=== PATIENT | male | born 1960 | race African-American/Black ===

== ENCOUNTER 2020-02-19 10:03 | Emergency (ER) | payer OTHER, SELFPAY ==
[2020-02-19] VITALS (14 sets, daily range): BP systolic 140–168; BP diastolic 99–106; PULSE 61–74; RESP 18–22; TEMP 36.6–36.8; O2SAT 96–99
--- NOTE | ~2020-02-19 | XR_ITS ---
EXAMINATION: XR chest 1V portable DATE: 02/19/2020 11:30 INDICATION: Cough. TECHNIQUE: A single frontal view of the chest was obtained. COMPARISON: None. FINDINGS: There is mild elevation of left hemidiaphragm. Calcified pulmonary nodules and calcified hi lar and mediastinal lymph nodes are consistent with old granulomatous disease. There is no pneumonia, pleural effusion, or pneumothorax. The heart size is normal. There is a stent graft in thoracic aort a. Median sternotomy wires are noted. IMPRESSION: 1. No acute cardiopulmonary disease. Reviewed, dictated and finalized at location A. EY STRIPPER
--- NOTE | 2020-02-19 10:15 | PC.NURSE ---
patient here with increased dry cough. see initial notes. alert. oriented. no dyspnea noted. no cough at this time. states his was (+) for Covid. denies fever. assessments documented. resting on stretcher. on BP and O2 monitors. call light in reach.
--- NOTE | 2020-02-19 10:47 | ED.URI ---
HPI - URI/Sore Throat General Chief Complaint: Upper Respiratory Infection Stated Complaint: cough, covid exposure Time Seen by Provider: 02/19/20 10:13 Source: patient Mode of arrival: ambulatory Limitations: no limitations History of Present Illness HPI Narrative: 59 year old male with history of asthma and hypertension who presents for evaluation possible covid. He states he has a cough for 2 weeks so he wants to get checked for covid. His wive was positive 2 weeks ago and she has had a negative test since. He reports he has continued to have a cough and chest congestion. He denies fever, vomiting, diarrhea, chest pain or shortness of breath. Related Data Home Medications Medication Instructions Recorded Confirmed carvedilol 25 mg PO BID 02/19/20 latanoprost drp 02/19/20 montelukast mg 02/19/20 nifedipine PO 02/19/20 Allergies Allergy/AdvReac Type Severity Reaction Status Date / Time No Known Allergies Allergy Verified 02/19/20 10:29 Review of Systems Review of Systems: All systems reviewed & are unremarkable except as noted in HPI and below Constitutional: Constitutional: Denies chills, Denies fatigue and Denies fever(s) ENT: Denies sore throat Cardiovascular: Cardiovascular: Denies chest pain Respiratory: Respiratory: Reports cough and Denies dyspnea Gastrointestinal: Gastrointestinal: Denies abdominal pain and Denies nausea PMFSH Past Medical History Medical History (Updated 02/19/20 @ 13:57 by Lisa Dwyer MD) Hypertension Surgical History Surgical History (Updated 02/19/20 @ 10:48 by Lisa Dwyer MD) H/O aortic valve replacement Family History Family History (Updated 01/18/20 @ 18:08 by Cesilia Roland RN) Mother Hypertension Sibling Hypertension Social History Social History Smoking status: Never smoker Exam Const: General: no acute distress and alert Orientation/consciousness: patient oriented x3 HENMT: Head: normocephalic and atraumatic Face and sinus: face symmetric Mouth: Yes Normal oral and palatal mucosa present, Yes lip normal, Yes oropharynx normal and Yes moist mucous membranes Eyes: EOM: EOMs intact bilaterally Chest: Chest palpation & inspection: normal inspection of the chest Resp: Effort & Inspection: normal respiratory effort and no retractions Auscultation: clear to auscultation bilaterally Cardio: Rate: regular rate Rhythm: regular rhythm Heart sounds: no murmurs GI: GI Palp: Yes Soft to palpation, No Tenderness to palpation present (GI) and No Guarding due to palpation present (GI) Auscultation: normal bowel sounds Skin: General skin exam: normal color Rashes: no rashes Neuro: General: patient oriented x3 and moves all extremities Psych: Mental Status: mental status grossly normal Affect: normal affect Course Reevaluation(s) Reevaluation #1: I discussed with patient that xray did not show pneumonia but he does have some kidney disease. He is not aware of any history. He was given IVF and he will follow up with PCP Date: 02/19/20 Time: 13:53 Vital Signs Vital signs: Vital Signs Pulse Oximetry 98 02/19/20 10:18 Temperature 97.9 F 02/19/20 13:30 Pulse Rate 64 02/19/20 13:30 Respiratory Rate 20 02/19/20 13:30 Blood Pressure 168/104 H 02/19/20 13:30 Pulse Oximetry 98 02/19/20 14:04 MDM - URI/Sore Throat Lab Data Attestation: I reviewed the patient's lab results. Result diagrams: 02/19/20 10:43 02/19/20 10:43 Labs: Lab Results 02/19/20 02/19/20 02/19/20 Range/Units 10:43 10:43 10:43 WBC 6.3 (4.5-10.0) K/mm3 RBC 4.43 L (4.6-6.20) M/mm3 Hgb 13.1 L (14.0-18.0) g/dL Hct 39.5 L (42.0-52.0) % MCV 89.2 (80-100) fl MCH 29.6 (26-34) pg MCHC 33.2 (32-36) g/dl RDW 14.6 H (11.5-14.5) % Plt Count 173 (150-375) k/mm3 MPV 11.7 H (7.4-10.4) fl Immature Gran % (Auto) 0.2 (0-0.5) % Neut % (
[2020-02-19 10:51] LABS: Basophils Absolute Auto 0.1 K/mm3 (0.0-0.1); Basophils Percent Auto 0.8 % (0.2-1.2); Eosinophils Absolute Auto 0.7 K/mm3 (0-0.3); Eosinophils Percent Auto 11.4 % (0-4.4); Hematocrit 39.5 % (42.0-52.0); Hemoglobin 13.1 g/dL (14.0-18.0); Immature Granulocyte Absolute 0.01 K/mm3 (0.00-0.031); Immature Granulocyte Percent A 0.2 % (0-0.5); Lymphocytes Percent Auto 25.3 % (18.3-44.2); Mean Corpuscular HGB Conc 33.2 g/dl (32-36); Mean Corpuscular Hemoglobin 29.6 pg (26-34); Mean Corpuscular Volume 89.2 fl (80-100); Mean Platelet Volume 11.7 fl (7.4-10.4); Monocytes Absolute Auto 0.8 K/mm3 (0.1-0.6); Monocytes Percent Auto 12.7 % (2.6-8.5); Neutrophils Absolute Auto 3.1 K/mm3 (1.3-6.7); Neutrophils Percent Auto 49.6 % (45.5-73.1); Platelet Count Result 173 k/mm3 (150-375); Red Blood Count 4.43 M/mm3 (4.6-6.20); Red Cell Distribution Width 14.6 % (11.5-14.5); White Blood Count 6.3 K/mm3 (4.5-10.0)
[2020-02-19 11:08] LABS: Alanine Aminotransferase 86 U/L (4-50); Albumin Level 4.1 g/dL (3.5-5.1); Alkaline Phosphatase 66 U/L (38-126); Anion Gap 6 mmol/L (8-16); Aspartate Amino Transferase 43 U/L (17-59); Bilirubin,Total 0.5 mg/dL (0.2-1.3); Blood Urea Nitrogen 26 mg/dL (9-20); CRP 0.9 mg/dL (<1.0); Calcium 8.6 mg/dL (8.4-10.2); Carbon Dioxide 31 mmol/L (22-30); Chloride 101 mmol/L (98-107); Estimated CRCL calculation 63 ml/min; Estimated Glomerular Filt Rate 48; Glucose 91 mg/dL (75-110); Sodium 138 mmol/L (137-145)
--- NOTE | 2020-02-19 11:10 | PC.NURSE ---
report given to Derrell ROMO
[2020-02-19] MEDS: LACTATED RINGERS 1,000 ML 999 ML IV CONT (12:54)
--- NOTE | 2020-02-19 13:22 | PC.NURSE ---
patient with call light on. this RN gave updated information to patient's on patient's cell phone. aware that patient may be discharged soon but physician is in a procedure.
[2020-02-20 16:54] LABS: SARS-CoV-2 RNA PCR Negative
== END 2020-02-19 14:19 | disposition home or self-care (01) ==
PROVIDERS: Emergency Provider General Practice
DX: J45.909 Unspecified asthma, uncomplicated (principal); N28.9 Disorder of kidney and ureter, unspecified; Z20.828 Contact with and (suspected) exposure to other viral communicable diseases; I10 Essential (primary) hypertension; Z95.2 Presence of prosthetic heart valve
CPT/HCPCS: 36415; 71045; 80053; 85025; 86140; 87635; 96360; 99283; C9803; J7120; U0003

== ENCOUNTER 2020-04-11 18:00 | Outpatient (RCR) | payer OTHER, SELFPAY ==
[2020-01-18 18:29] VITALS: PULSE 66
--- NOTE | 2020-01-23 17:13 | PCCPR ---
ABSENT Chace's called states he is pretty tired today and will not be in.
--- NOTE | 2020-02-01 11:02 | PCCPR ---
Addendum entered by Arabella Cormier RN 02/01/20 11:03: Sushila returned our call states he has not been feeling well this week and hopes to return next week. Original Note: Absent without call or show Message left for Chace and or his to give us an update of how he is feeling and a plan for return to rehab.
--- NOTE | 2020-02-06 18:12 | PCCPR ---
pt called, had recent exposure and will be quarantining for 14 days- potentially thru 02/15
--- NOTE | 2020-02-09 16:17 | PCCPR ---
pt put on hold until 6p class opens again. spoke to pt and updated on status of change in hours for CR.
--- NOTE | 2020-03-26 09:41 | PCCPR ---
Addendum entered by Arabella Cormier RN 03/29/20 18:41: Chace' s answered and states Chace would like to return he has been down with his back back however feeling better now. Sushila states she has not returned any calls since between her work and helping care for him she has not had time to do so. She plans to have him here 04/02/20. Verified the class schedule for the week. Addendum entered by Arabella Cormier RN 03/29/20 18:36: Message left that we will be discharging Chace from program since we have not heard back with plan to return. Original Note: Msg left for Chace and his Sushila MADINA requesting they give us a call back to let us know Chace's plan for return. Also to verify we are open at the 6 pm time.
--- NOTE | 2020-04-16 13:22 | PCCPR ---
Absent due to cold snowy weather Spoke with Chace's and choosing not to come out in cold.
== END 2020-04-11 23:59 | disposition home or self-care (01) ==
LOC: ANHCPREHAB 18:00
DX: Z95.2 Presence of prosthetic heart valve (principal)
CPT/HCPCS: 93798

== ENCOUNTER 2020-07-16 18:00 | Outpatient (RCR) | payer OTHER, SELFPAY ==
[2020-04-18 00:03] VITALS: PULSE 66
--- NOTE | 2020-06-25 18:25 | PCCPR ---
Absent Chace absent without call.
== END 2020-07-16 19:30 | disposition home or self-care (01) ==
LOC: ANHCPREHAB 18:00
DX: Z95.2 Presence of prosthetic heart valve (principal)
CPT/HCPCS: 93798

== ENCOUNTER 2020-12-24 18:42 | Observation (INO) | payer OTHER, SELFPAY ==
[2020-12-24] VITALS (20 sets, daily range): BP systolic 113–151; BP diastolic 70–87; PULSE 67–82; RESP 16–25; TEMP 36.6; O2SAT 92–100
--- NOTE | ~2020-12-24 | US_ITS ---
EXAMINATION:US venous doppler LE BI INDICATION:Elevated d-dimer. TECHNIQUE: Multiple grayscale, color flow and Doppler images of the right and left lower extremity de ep venous systems were obtained and reviewed. COMPARISON:No prior studies for comparison. FINDINGS: The common femoral, superficial femoral and popliteal veins demonstrate normal respiratory variation, augmentation and compressibility. Color flow is also seen within the posterior tibial, pe roneal, greater saphenous and profunda veins. IMPRESSION: 1: No lower extremity deep venous thrombosis. Reviewed, dictated and finalized at location A.
--- NOTE | ~2020-12-24 | US_ITS ---
EXAMINATION: US renal BI EXAM DATE: 12/25/2020 10:14 INDICATION: Acute on chronic renal failure . TECHNIQUE: Multiple grayscale and Doppler images of the kidneys were obtained (by a technologist who performed the scan) and subsequently reviewed. There is no prior study for comparison. FINDINGS: Right kidney: There is normal contour and echogenicity. It measures 10.2 x 5.0 x 4.0 centimeters. T here are no focal renal lesions identified. There is no hydronephrosis. Left kidney: There is normal contour and echogenicity. It measures 11.2 x 5.6 x 7.0 centimeters. Th ere are no focal renal lesions identified. There is no hydronephrosis. Bladder unremarkable. IMPRESSION: 1. Sonographically unremarkable kidneys. Reviewed, dictated and finalized at location B.
--- NOTE | ~2020-12-24 | CT_ITS ---
EXAMINATION: CTA chest PE protocol EXAM DATE: 12/25/2020 16:08 INDICATION: Elevated d-dimer, cough. TECHNIQUE: Spiral CTA of the chest (pulmonary arteries) was performed with 100 cc Omnipaque 350 intr avenous contrast injection. Images were acquired during the pulmonary arterial phase. Coronal maxi mum intensity projection 3D-reconstructions were created by the technologist on dedicated workstation . Axial, coronal and sagittal reformatted images were reviewed. The dose-length product (DLP) for t his examination was 983.02 mGy-cm. The exposure was tailored according to patient size (auto mA exp osure control), and iterative reconstruction (ASIR) was used as additional dose reduction technique. There is no prior study for comparison. FINDINGS: There is aortic stent in its arch and proximal descending thoracic aorta. There is a dissec tion flap starting at the aortic hiatus into the abdomen. The celiac artery, superior mesenteric mele ry and renal arteries arise from the true lumen. The abdominal aorta below this was not imaged. There are no central pulmonary emboli. There is respiratory motion limiting confidence in evaluating the segmental pulmonary arteries. There is bibasilar subsegmental atelectasis. There are no pleural o r pericardial effusions. Tracheobronchial tree is patent. Mildly enlarged paratracheal, precarina l, right hilar lymph nodes, differential diagnosis including reactive etiology, lymphoma, metastatic disease. There is no pneumothorax. Heart normal in size. There are sternotomy wires, and cardiac /coronary surgical changes. Correlate with prior history. There is thickened appearance to the mid esophagus, differential diagnosis including esophagitis and cancer. There is small sliding gastroesophageal hiatal hernia. There is thoracic spondylosis without osteoblastic or osteolytic lesions identified. IMPRESSION: 1. 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 2. No central pulmonary emboli. 3. Basilar subsegmental atelectasis. 4. Mid esophageal wall thickening, edema from esophagitis or cancer. 5. Mild mediastinal, right hilar lymphadenopathy. This could be reactive or cancer. Reviewed, dictated and finalized at location B. IMPRESSION: 1. 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 2. No central pulmonary emboli. 3. Basilar subsegmental atelectasis. 4. Mid esophageal wall thickening, edema from esophagitis or cancer. 5. Mild mediastinal, right hilar lymphadenopathy. This could be reactive or c ancer.
--- NOTE | ~2020-12-24 | XR_ITS ---
XR chest 2V 12/24/2020 19:24 Indication: Chest tightness and shortness of breath. Hypertension. Asthma. Procedure: PA and lateral views of the chest Comparison: 02/19/2020 Findings: Status post median sternotomy for CABG. Heart size normal. Elevated left diaphragm appears chronic, likely phrenic nerve paralysis. There is an aortic stent. Impression: 1: No acute cardiopulmonary disease. Reviewed, dictated and finalized at location A. Impression: 1: No acute cardiopulmonary disease.
--- NOTE | 2020-12-24 18:56 | ECG_ITS ---
Measurements Intervals [place] Rate: 80 P: 56 IA: 236 QRS: -3 QRSD: 87 T: 197 QT: 349 QTc: 404 Interpretive Statements SINUS RHYTHM WITH FIRST DEGREE AV BLOCK LEFT VENTRICULAR HYPERTROPHY AND ST-T CHANGE ST-T WAVE ABNORMALITY IN ANTEROLATERAL LEADS- CONSIDER ISCHEMIA BASELINE ARTIFACT- I, II, III, V3 ABNORMAL ECG Electronically Signed On 12-24-2020 22:55:29 CDT by Sandeep Hunter D.O.
[2020-12-24] MEDS: ALBUTEROL SULFATE NEB 2.5 MG/3 ML INH 1.25 MG INHALATION ×2 (20:11→21:38)
[2020-12-24] MEDS: IPRATROPIUM BR 0.02% INH SOLN 0.5 MG/2.5 ML VIAL INHALATION ×2 (20:11→21:38)
[2020-12-24] MEDS: methylPREDNISolone SOD SUCC 125 MG VIAL IV PUSH (20:14)
[2020-12-24 20:18] LABS: Basophils Percent Auto 0.3 % (0.2-1.2); Eosinophils Absolute Auto 1.4 K/mm3 (0-0.3); Hemoglobin 12.6 g/dL (14.0-18.0); Immature Granulocyte Absolute 0.03 K/mm3 (0.00-0.031); Immature Granulocyte Percent A 0.4 % (0-0.5); Lymphocytes Absolute Auto 1.54 K/mm3 (0.9-3.2); Lymphocytes Percent Auto 19.6 % (18.3-44.2); Mean Corpuscular HGB Conc 33.2 g/dl (32-36); Mean Corpuscular Hemoglobin 31.4 pg (26-34); Mean Corpuscular Volume 94.8 fl (80-100); Mean Platelet Volume 11.6 fl (7.4-10.4); Monocytes Absolute Auto 0.6 K/mm3 (0.1-0.6); Monocytes Percent Auto 7.5 % (2.6-8.5); Neutrophils Absolute Auto 4.3 K/mm3 (1.3-6.7); Neutrophils Percent Auto 54.2 % (45.5-73.1); Platelet Count Result 141 k/mm3 (150-375); Red Blood Count 4.01 M/mm3 (4.6-6.20); Red Cell Distribution Width 14.1 % (11.5-14.5); White Blood Count 7.9 K/mm3 (4.5-10.0)
--- NOTE | 2020-12-24 20:18 | ED.ASTHMA ---
HPI - Asthma General Chief Complaint: Asthma Stated Complaint: trouble breathing, asthma Time Seen by Provider: 12/24/20 20:04 Source: patient Mode of arrival: ambulatory Limitations: no limitations History of Present Illness HPI Narrative: Patient is a 59-year-old male complaining of it's my asthma , described as cough, wheezing and chest tightness that started 2 weeks ago. Patient states that he saw his primary care physician and was prescribed a Z-Chacho which he just finished but states that he is not any better. Patient was not prescribed any steroids since her primary care physician thinks it is an upper respiratory infection according to the patient. Patient denies any abdominal pain, nausea, vomiting, diaphoresis, fever or chills. Related Data Home Medications Medication Instructions Recorded Confirmed carvedilol 25 mg PO BID 02/19/20 latanoprost drp 02/19/20 montelukast mg 02/19/20 nifedipine 60 mg PO DAILY 05/14/20 05/14/20 Allergies Allergy/AdvReac Type Severity Reaction Status Date / Time [id number] Reductase AdvReac Wheezing Verified 12/24/20 20:18 Inhibitor Review of Systems Review of Systems: All systems reviewed & are unremarkable except as noted in HPI and below Constitutional: Constitutional: Denies body ache(s), Denies chills, Denies excessive sweating, Denies fatigue, Denies fever(s), Denies headache(s), Denies lethargy, Denies malaise, Denies weakness and Denies weight loss Eyes: Eyes: Denies blurry vision, Denies change in vision and Denies loss of vision ENT: Denies dizziness, Denies ear discharge, Denies headache(s), Denies lip swelling, Denies epistaxis, Denies nasal congestion, Denies neck pain, Denies throat swelling and Denies tongue swelling Cardiovascular: Cardiovascular: Denies chest pain, Denies chest pain at rest, Denies chest pain with activity, Denies diaphoresis, Denies rapid heart rate, Denies edema, Denies irregular heart rhythm, Denies lightheadedness and Denies palpitations Respiratory: Respiratory: Denies chest congestion and Denies hemoptysis Gastrointestinal: Gastrointestinal: Denies abdominal pain, Denies melena, Denies hematochezia, Denies diarrhea, Denies nausea, Denies vomiting and Denies hematemesis Musculoskeletal: Musculoskeletal: Denies abnormal gait, Denies deformity, Denies joint swelling, Denies limited range of motion, Denies neck pain and Denies numbness Neurologic: Denies Abnormal speech present, Denies abnormal gait, Denies confusion, Denies dizziness, Denies headache(s), Denies focal weakness, Denies loss of vision, Denies numbness, Denies Other visual disturbances, Denies Sensory deficit (Neuro) and Denies weakness Psychiatric: Psychiatric: Denies confusion, Denies depression, Denies auditory hallucinations, Denies homicidal ideation and Denies suicidal ideation Endocrine: Endocrine: Denies cold intolerance, Denies excessive sweating, Denies fatigue, Denies heat intolerance and Denies palpitations Hematologic/Lymphatic: Hematologic/Lymphatic: Denies easy bleeding and Denies easy bruising Allergic/Immunologic: Allergic/Immunologic: Denies lip swelling, Denies throat swelling and Denies tongue swelling PMFSH Past Medical History Medical History (Updated 12/24/20 @ 23:08 by Freddie Car MD) Hypertension Surgical History Surgical History (Updated 02/19/20 @ 10:48 by Lisa Dwyer MD) H/O aortic valve replacement Family History Family History (Updated 01/18/20 @ 18:08 by Cesilia Roland RN) Mother Hypertension Sibling Hypertension Social History Social History Smoking status: Never smoker Comments Past medical history: Hypertension, aortic aneurysm (repaired) Family history: Hypertension Social history: Non-smoker no EtOH or drug use Exam Const: General: cooperative, healthy appearing, comfortable, no acute distress, well developed, alert and awake; No confusion Nutritional Appearance: obese Orientation/cons
[2020-12-24 20:23] LABS: Anion Gap 10 mmol/L (8-16); Blood Urea Nitrogen 42 mg/dL (9-20); Calcium 9.1 mg/dL (8.4-10.2); Carbon Dioxide 24 mmol/L (22-30); Chloride 107 mmol/L (98-107); Estimated CRCL calculation 59 ml/min; Estimated Glomerular Filt Rate 42; Glucose 109 mg/dL (65-110); Sodium 141 mmol/L (137-145)
[2020-12-24 20:47] LABS: NT Pro B Type Natriuretic Pept 186 pg/mL (5-100); Troponin I < 0.012 ng/mL (0.000-0.034)
--- NOTE | 2020-12-24 23:58 | PM.IMHP ---
H&P: HPI History of Present Illness Date/Time: 12/24/20 23:58 this is a 59-year-old male patient who has a past medical history of asthma, hypertension and in abdominal aortic aneurysm rupture repair. The patient has been complaining of coughing for the last 2-3 weeks. The patient stated that he did get the [employer] COVID vaccine and then he recently was tested negative for COVID-19. The patient denies any fever chills. No nausea vomiting or diarrhea. The patient's physician felt that the patient may have had an upper respiratory infection and prescribed him azithromycin he has completed the course and still does not feel any better. The patient stated that he has been using his inhalers at home without any relief. The patient stated that he has been having a dry cough and wheezing. His H&H is 12.6 and 38.0. No white count is noted. His creatinine is 1.7 and this is gotten worse since last year it was 1.5. The stated that they are getting ready to see a character actress and they do not have 1 as of yet. Chest x-ray was read as no acute cardiopulmonary disease. The staff cytotechnologist told me that she gave him a treatment. The patient was given a dual nebulizer treatment and Solu-Medrol in the emergency room. The patient is being admitted to observation status on the service of 12/24/2020. Chief Complaint: Shortness of breath Review of Systems Review of Systems: All systems reviewed & are unremarkable except as noted in HPI and below Constitutional: Constitutional: Reports as per HPI and Reports no additional constitutional complaints Eyes: Eyes: Reports as per HPI and Reports no additional eye complaints ENT: Reports system reviewed and no additional complaints, except as documented and Reports Normal hearing present Cardiovascular: Cardiovascular: Reports no additional cardiovascular complaints Respiratory: Respiratory: Reports no additional respiratory complaints and Reports no additional respiratory complaints Gastrointestinal: Gastrointestinal: Reports as per HPI and Reports no additional gastrointestinal complaints Musculoskeletal: Musculoskeletal: Reports no additional musculoskeletal complaints Integumentary/Breasts: Skin/Breast: Reports system reviewed and no additional complaints, except as docu and Reports as per HPI Neurologic: Reports system reviewed and no additional complaints, except as documented, Reports as per HPI and Reports Normal hearing present Psychiatric: Psychiatric: Reports no additional psychiatric complaints and Reports as per HPI Endocrine: Endocrine: Reports no additional endocrine complaints Hematologic/Lymphatic: Hematologic/Lymphatic: Reports no additional hematologic/lymphatic complaints Allergic/Immunologic: Allergic/Immunologic: Reports no additional allergic/immunologic complaints [facility] Past Medical History Medical History (Updated 12/25/20 @ 00:03 by Iyv Eric NP) Acute kidney injury Close exposure to 2019-nCoV Glaucoma HTN (hypertension), malignant Hypertension Surgical History Surgical History (Updated 12/25/20 @ 00:03 by Ivy Eric NP) S/P AAA repair Family History Family History Mother Hypertension Sibling Hypertension Son Diabetes mellitus Type 1 Social History Social History (Updated 12/25/20 @ 00:05 by Ivy Eric NP) Social History: The patient lives with his and has 2 children a son and a daughter. The patient does not currently work. The patient is lifelong nonsmoker does not drink alcohol or use illicit drugs. 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 Code status full code Smoking status: Never smoker Meds Home Medications and Allergies Home Medications Medication Instructions Recorded Confirmed Type albuterol sulfate 2 puff INHALATION QID PRN #6.7 g 02/19/20 Rx carvedilol 25 mg PO BID 02/19/20 History latanoprost
[2020-12-25] VITALS (24 sets, daily range): BP systolic 138–167; BP diastolic 79–91; PULSE 72–97; RESP 14–24; TEMP 36.2–36.8; O2SAT 96–99
--- NOTE | 2020-12-25 | ECHO_ITS ---
Patient Info Name: Chace Irvin Age: 60 years : 1960 Gender: Male Ht: 72 in Wt: 261 lbs BSA: 2.49 m2 HR: 86 bpm BP: 158 / 86 mmHg Heart Rhythm: Sinus Rhythm Exam Date: 12/25/2020 11:51 AM Exam Location: [facility] Patient Status: Inpatient Admit Date: 12/24/2020 Staff Ordering Physician: Tamera Workman PA-C Winch Runner: Andrés Small, ERICK, RT Attending Provider: Tamera Workman PA-C Referring Physician: Ji PASCUAL; Exam Type: CA echo doppler color flow Study Info Indications R94.31 - Abnormal electrocardiogram ECG EKG R07.9 - Chest pain, unspecified Complete two-dimensional, color flow and Doppler transthoracic echocardiogram is performed. Strain analysis performed. Summary 1. Complete two-dimensional, color flow and Doppler transthoracic echocardiogram is performed. 2. Left ventricular chamber dimension is normal. 3. Left ventricular systolic function is normal, estimated at >70%. 4. There is moderately increased left ventricular wall thickness. 5. The left ventricular diastolic function is grade I diastolic dysfunction. 6. Global longitudinal strain is borderline at -16 %. 7. Left atrial chamber dimension is mildly enlarged. 8. There is mild mitral valve regurgitation. 9. There is mild tricuspid valve regurgitation. Left Ventricle Left ventricular chamber dimension is normal. Left ventricular systolic function is normal, estimated at >70%. There is moderately increased left ventricular wall thickness. The left ventricular diastolic function is grade I diastolic dysfunction. Global longitudinal strain is borderline at -16 %. Right Ventricle Right ventricular chamber dimension is normal. Right ventricular systolic function is normal. Left Atria Left atrial chamber dimension is mildly enlarged. Right Atria Right atrial chamber dimension is normal. Aortic Valve The aortic valve is trileaflet. There is no aortic valve sclerosis. There is no aortic valve stenosis. There is trace aortic valve regurgitation. Pulmonic Valve The pulmonic valve is normal. There is no pulmonic valve stenosis. There is trace pulmonic regurgitation. Mitral Valve The mitral valve has normal leaflets. There is no mitral valve stenosis. There is mild mitral valve regurgitation. Tricuspid Valve The tricuspid valve leaflets are normal. There is no significant tricuspid valve stenosis. There is mild tricuspid valve regurgitation. Pericardium/Pleural The pericardium appears normal. There is no pericardial effusion. Inferior Vena Cava Normal inferior vena cava with >50% collapse upon inspiration consistent with normal right atrial pressure, 5 mmHg. Aorta The aortic root size at the sinus of Valsalva is normal. Left Ventricular Outflow Tract Name Value Normal LVOT 2D LVOT Diameter 2.2 cm LVOT Doppler LVOT Peak Gradient 7 mmHg LVOT Mean Gradient 5 mmHg LVOT VTI 28 cm LVOT VTI/AV VTI Ratio 0.8 LVOT Stroke Volume
[2020-12-25 00:35] LABS: Troponin I < 0.012 ng/mL (0.000-0.034)
[2020-12-25] MEDS: MONTELUKAST SODIUM 10 MG TABLET PO ×2 (00:47→20:06)
--- NOTE | 2020-12-25 01:01 | PC.NURSE ---
RN did not give Coreg now dose. Pt took 2nd dose of the day prior to coming into the ER. verified with pt again to be sure he did take it prior to coming into ER. RN spoke with Bartolo in Pharmacy about this issue, unable to document Not Given in the MAR.
[2020-12-25] MEDS: IPRATROPIUM BR 0.02% INH SOLN 0.5 MG/2.5 ML VIAL INHALATION ×2 (01:44→09:17)
[2020-12-25] MEDS: ALBUTEROL SULFATE NEB 2.5 MG/0.5 ML INH 5 MG INHALATION ×4 (01:44→20:31)
[2020-12-25 02:37] LABS: Troponin I < 0.012 ng/mL (0.000-0.034)
--- NOTE | 2020-12-25 03:52 | ADMGEN ---
This patient, Chace Irvin, was admitted to IMU Room 214-01 on 12/25/2020 0330. Patient/family oriented to hospital policies and general routines including ID bracelet, bed and alarms, visiting hours, pain management, procedures, bathroom and other care routines, personal items, smoking policy, room service/diet, and visiting hours. Information on how to activate the Rapid Response Team has been discussed. Patient/Family are encouraged to report perceived risks to care and to ask questions if they do not understand what they are told or what they should do.
[2020-12-25] MEDS: LACTATED RINGERS 1,000 ML 125 ML IV CONT (04:06)
[2020-12-25 05:10] LABS: Basophils Percent Auto 0.1 % (0.2-1.2); Eosinophils Absolute Auto 0.3 K/mm3 (0-0.3); Eosinophils Percent Auto 4.4 % (0-4.4); Hematocrit 41.4 % (42.0-52.0); Hemoglobin 13.6 g/dL (14.0-18.0); Immature Granulocyte Absolute 0.03 K/mm3 (0.00-0.031); Immature Granulocyte Percent A 0.4 % (0-0.5); Lymphocytes Absolute Auto 0.98 K/mm3 (0.9-3.2); Lymphocytes Percent Auto 13.2 % (18.3-44.2); Mean Corpuscular HGB Conc 32.9 g/dl (32-36); Mean Corpuscular Hemoglobin 31.1 pg (26-34); Mean Corpuscular Volume 94.7 fl (80-100); Mean Platelet Volume 11.7 fl (7.4-10.4); Monocytes Absolute Auto 0.1 K/mm3 (0.1-0.6); Monocytes Percent Auto 1.5 % (2.6-8.5); Neutrophils Percent Auto 80.4 % (45.5-73.1); Platelet Count Result 150 k/mm3 (150-375); Red Blood Count 4.37 M/mm3 (4.6-6.20); Red Cell Distribution Width 13.9 % (11.5-14.5); White Blood Count 7.4 K/mm3 (4.5-10.0)
[2020-12-25 05:40] LABS: Alanine Aminotransferase 46 U/L (4-50); Albumin Level 4.2 g/dL (3.5-5.1); Alkaline Phosphatase 51 U/L (38-126); Anion Gap 12 mmol/L (8-16); Aspartate Amino Transferase 41 U/L (17-59); Bilirubin,Total 0.5 mg/dL (0.2-1.3); Blood Urea Nitrogen 36 mg/dL (9-20); Calcium 9.3 mg/dL (8.4-10.2); Carbon Dioxide 21 mmol/L (22-30); Chloride 106 mmol/L (98-107); Estimated CRCL calculation 75 ml/min; Estimated Glomerular Filt Rate 57; Glucose 272 mg/dL (65-110); Lactate Dehydrogenase 745 U/L (313-618); Magnesium 2.4 mg/dL (1.6-2.3); Potassium 4.3 mmol/L (3.4-5.0); Sodium 139 mmol/L (137-145)
[2020-12-25] MEDS: methylPREDNISolone SOD SUCC 125 MG VIAL 60 MG IV PUSH (05:42)
[2020-12-25] MEDS: HEPARIN SODIUM 5,000 UNITS/ML VIAL 5000 UNITS SUB-Q ×2 (09:17→20:06)
--- NOTE | 2020-12-25 11:00 | PHAR ---
RX [id number] IDENTIFIED TO CONTAIN DRUG NAME: CARVEDILOL INGREDIENTS: CARVEDILOL -- 25 MG RELATED DOCUMENTS: DRUGDEX EVALUATIONS - CARVEDILOL COLOR: WHITE TO OFF-WHITE SHAPE: [place] IMPRINT: [id number] FORM: ORAL TABLET RX [id number] IDENTIFIED TO CONTAIN DRUG NAME: NIFEDIPINE INGREDIENTS: NIFEDIPINE -- 60 MG RELATED DOCUMENTS: DRUGDEX EVALUATIONS - NIFEDIPINE COLOR: LIGHT BROWN SHAPE: [place] IMPRINT: 60 FORM: ORAL TABLET, EXTENDED RELEASE
[2020-12-25] MEDS: PANTOPRAZOLE 40 MG TABLET PO (11:12)
[2020-12-25 11:47] LABS: D Dimer 5.82 ug/mL (<0.48)
--- NOTE | 2020-12-25 12:56 | PM.CNPUL ---
Assessment and Plan Assessment and plan (1) Asthma with acute exacerbation in adult: Qualifiers: Asthma persistence: persistent Asthma severity: moderate Qualified Code(s): J45.41 - Moderate persistent asthma with (acute) exacerbation Code(s): J45.901 - Unspecified asthma with (acute) exacerbation Status: Acute Assessment and Plan: patient with a history of asthma, untreated sleep apnea, history of previous surgery for aortic dissection presented with 2 week history of cough and chest tightness related to asthma exacerbation. He has significantly improved following treatment with nebulized short-acting bronchodilators and IV steroids. He has no wheezing on physical exam. I agree with current management. In view of history of glaucoma I will discontinue Atrovent and continue with just nebulized albuterol p.r.n.. patient needs to return to pulmonary clinic for follow-up regarding asthma, and untreated sleep apnea. (2) Sleep apnea: Qualifiers: Sleep apnea type: obstructive Qualified Code(s): G47.33 - Obstructive sleep apnea (adult) (pediatric) Code(s): G47.30 - Sleep apnea, unspecified Status: Acute (3) Elevated diaphragm: Code(s): J98.6 - Disorders of diaphragm Status: Acute Assessment and Plan: Patient has an elevated left hemidiaphragm on chest x-ray. 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 He will need evaluation with pulmonary function testing as outpatient. Also repeat sleep study regarding untreated sleep apnea documented before his aortic aneurysm surgery and also to exclude nocturnal hypoventilation related to diaphragmatic weakness. History of Present Illness History of Present Illness Consult date: 12/25/20 Chief complaint: Asthma Exacerbation Narrative: This 59-year-old man was admitted into the hospital with a 2-week history of cough and chest tightness. The patient has history of asthma for many years and has been on maintenance bronchodilators including Symbicort inhaler Singulair and a rescue albuterol inhaler. He was in his usual state of health until approximately 2 weeks ago when he started coughing. The cough has been mostly dry and associated with some chest tightness and wheezing. He also noticed some shortness of breath. He had no fever chills chest pain hemoptysis night sweats or orthopnea. Patient was treated on outpatient basis with azithromycin with no improvement. Patient has also history of sleep apnea for which he was briefly treated with CPAP approximately 4 years ago. Currently he is not on any treatment because he could not tolerate CPAP. The patient was evaluated in the emergency room and was treated with nebulized short-acting bronchodilators as well as IV Solu-Medrol. Currently he is doing better. He no longer has shortness of breath or wheezing. He did not require supplemental oxygen. Review of Systems Review of Systems: The patient reported no weight changes. Patient has had good appetite. Patient denied having fever chills or night sweats. Patient has no chest pain palpitations or orthopnea. Patient has history of acid reflux disease on PPI. Patient denied having abdominal pain, diarrhea, constipation, nausea or vomiting. Patient has no urinary complaints. Patient was recently treated with Lasix for lower extremity edema. The remainder of the 12 point system review is negative. [facility] Past Medical History Medical History (Updated 12/25/20 @ 13:02 by Sawyer Roach MD) Acute kidney injury Close exposure to 2019-nCoV Glaucoma HTN (hypertension), malignant Hypertension Surgical History Surgical History (Updated 12/25/20 @ 00:03 by Ivy Eric NP) S/P AAA repair Family History Family History Mother Hypertension Sibling Hypertension Son Diabetes mellitus Type 1 Socia
--- NOTE | 2020-12-25 15:33 | PM.IMPN ---
Progress Note: A&P Assessment and Plan (1) Asthma with acute exacerbation in adult: Qualifiers: Asthma persistence: persistent Asthma severity: moderate Qualified Code(s): J45.41 - Moderate persistent asthma with (acute) exacerbation Code(s): J45.901 - Unspecified asthma with (acute) exacerbation Status: Acute Assessment and Plan: Patient improving on IV steroids, will continue with IV steroids but decrease the dose -continue with albuterol and singular -D-dimer significantly elevated, I spoke with the patient and family about the risk and benefits of a CTA and they would like to proceed. (2) HTN (hypertension), malignant: Code(s): I10 - Essential (primary) hypertension Status: Chronic Assessment and Plan: Last blood pressure 158/86 -continue Coreg and nifedipine -patient is using his home supply (3) Acute kidney injury: Code(s): N17.9 - Acute kidney failure, unspecified Status: Acute Assessment and Plan: Creatinine improved to 1.3 today. He is chronically usually around 1.5 -renal ultrasound normal -I recommended that the patient monitor his blood pressure and continue treatment for such -may want to see a lead ramp agent outpatient but I do not think he need to see 1 here at the hospital -monitor especially with the CT that will be done today (4) Glaucoma: Code(s): H40.9 - Unspecified glaucoma Status: Chronic Assessment and Plan: No acute issues (5) Elevated d-dimer: Code(s): R79.89 - Other specified abnormal findings of blood chemistry Status: Acute Assessment and Plan: As above -check LE u/s and chest CTA. Pt did have recent 5 [address] travel by train. no hx of PE -covid appears less likely. If there are any signs of PNA on the CTA, will consider testing for COVID. LDH also mildly high. Will need rechecked after acute illness has improved. Additional Plan EKG reviewed. T-wave inversion appears to be chronic when compared to records from June 2020 -echo reviewed, no mention of wall motion abnormalities. EF >70, diastolic grade 1. Time Spent With Patient Time with patient: 25 - 35 minutes Subjective Date/time seen: 12/25/20 15:33 Interval history: Pt is a 59-year-old male here for asthma exacerbation. Patient was seen today with at bedside. He states that he feels much better today than he did yesterday but continues to have a dry cough. He does not feel short of breath at this time. I had a long talk with the and patient about the plan of care. He recently traveled from [place] to here on a train but other than that is usually pretty active. He has no history of blood clots. The patient's did mention that his feet have been swelling occasionally but no obvious signs of blood clots. He also has a history of aortic dissection that he sees a ladle puller for in [place]. He is known to be a prediabetic. Patient has no chest pain today. Of note, he was not recently tested for COVID. He has had the [employer] vaccine. Review of Systems Review of Systems: All systems reviewed & are unremarkable except as noted in HPI and below Exam Narrative: General: Well developed well nourished patient in NAD HEENT: normocephalic Neck: supple Neuro: Alert and oriented x4 CV:RRR Resp:CTA--no wheezing or rhonchi. Mild cough on exam Abd: Soft, non distended. No pain to palpation. Positive bowel sounds Extremities: No swelling, erythema, or pain to palpation. Objective Data Vital Signs Vital Signs: Vital Signs - 24 hr 12/24/20 18:53 12/24/20 19:23 12/24/20 19:30 Temperature 97.8 F Pulse Rate 82 78 77 Respiratory Rate 22 H 19 24 H Blood Pressure 140/83 Pulse Oximetry 94 97 97 12/24/20 20:04 12/24/20 20:06 12/24/20 20:12 Temperature Pulse Rate 76 75 76 Respiratory Rate 21 H 23 H 21 H Blood Pressure 126/78 Pulse Oximetry 97 96 12/24/20
[2020-12-25] MEDS: LACTATED RINGERS 1,000 ML 50 ML IV CONT (17:00)
[2020-12-25] MEDS: methylPREDNISolone SOD SUCC 40 MG VIAL IV PUSH (17:37)
[2020-12-26] VITALS (10 sets, daily range): BP systolic 158; BP diastolic 67–94; PULSE 73–94; RESP 18–22; TEMP 35.9–36.6; O2SAT 95–99
[2020-12-26] MEDS: ALBUTEROL SULFATE NEB 2.5 MG/0.5 ML INH 5 MG INHALATION ×2 (02:35→09:07)
[2020-12-26 05:24] LABS: Hematocrit 38.3 % (42.0-52.0); Hemoglobin 12.6 g/dL (14.0-18.0); Mean Corpuscular HGB Conc 32.9 g/dl (32-36); Mean Corpuscular Hemoglobin 30.7 pg (26-34); Mean Corpuscular Volume 93.4 fl (80-100); Mean Platelet Volume 11.4 fl (7.4-10.4); Platelet Count Result 149 k/mm3 (150-375); Red Cell Distribution Width 14.1 % (11.5-14.5); White Blood Count 13.2 K/mm3 (4.5-10.0)
[2020-12-26 05:39] LABS: Anion Gap 9 mmol/L (8-16); Blood Urea Nitrogen 22 mg/dL (9-20); Calcium 8.8 mg/dL (8.4-10.2); Carbon Dioxide 25 mmol/L (22-30); Chloride 106 mmol/L (98-107); Estimated CRCL calculation 86 ml/min; Estimated Glomerular Filt Rate > 60; Glucose 139 mg/dL (65-110); Lactate Dehydrogenase 642 U/L (313-618); Magnesium 2.1 mg/dL (1.6-2.3); Potassium 3.8 mmol/L (3.4-5.0); Sodium 140 mmol/L (137-145)
[2020-12-26] MEDS: HEPARIN SODIUM 5,000 UNITS/ML VIAL 5000 UNITS SUB-Q (08:20)
[2020-12-26] MEDS: methylPREDNISolone SOD SUCC 40 MG VIAL IV PUSH (08:21)
[2020-12-26] MEDS: PANTOPRAZOLE 40 MG TABLET PO (08:22)
--- NOTE | 2020-12-26 10:41 | PM.PNPUL ---
Progress Note: A&P Assessment and Plan (1) Asthma with acute exacerbation in adult: Qualifiers: Asthma persistence: persistent Asthma severity: moderate Qualified Code(s): J45.41 - Moderate persistent asthma with (acute) exacerbation Code(s): J45.901 - Unspecified asthma with (acute) exacerbation Status: Acute Assessment and Plan: 60-year-old man with history of asthma presented with cough and chest tightness. Has been treated for asthma exacerbation with clinical improvement he no longer has wheezing but mild cough persists. On physical exam there is no evidence of wheezing. A chest CT showed clear lungs no evidence of PE and borderline mediastinal lymph node enlargement. Plan is as follows: Switch patient to oral prednisone to continue for a total of one week. Continue with current bronchodilator treatment, DVT prophylaxis. Need to evaluate patient in the outpatient clinic for asthma, possible left diaphragm weakness from previous cardiac surgery, sleep disordered breathing, and borderline mediastinal lymph node enlargement. (2) Elevated diaphragm: Code(s): J98.6 - Disorders of diaphragm Status: Acute (3) Sleep apnea: Qualifiers: Sleep apnea type: obstructive Qualified Code(s): G47.33 - Obstructive sleep apnea (adult) (pediatric) Code(s): G47.30 - Sleep apnea, unspecified Status: Acute (4) Mediastinal lymphadenopathy: Code(s): R59.0 - Localized enlarged lymph nodes Status: Acute Assessment and Plan: on last chest CT there was evidence of borderline mediastinal lymphadenopathy. Need to evaluate patient with a repeat chest CT in about 4-6 months. Subjective Date/time seen: 12/26/20 10:41 Patient is doing better. He has no shortness of breath. Still with mild cough. No fever or wheezing. Has undergone chest CT. Review of Systems Review of Systems: All systems reviewed & are unremarkable except as noted in HPI and below (H and P) Exam Narrative: GENERAL APPEARANCE: Well developed, well nourished, alert and cooperative, who appears to be in no acute distress SKIN: Inspection of the skin reveals no rashes, ulcerations or petechiae. HEENT: Sclerae anicteric and conjunctivae pink and moist. Extraocular movements were intact and pupils were equal, round, and reactive to light. The oral mucosa, hard and soft palate, tongue and posterior pharynx were normal. NECK: Supple. There was no thyroid enlargement, and no tenderness, or masses were felt. CHEST: Normal AP diameter and normal contour without any kyphoscoliosis. LUNGS: Auscultation of the lungs revealed normal breath sounds without any other adventitious sounds or rubs. CARDIAC: There was a regular rate and rhythm without any murmurs, gallops, rubs. ABDOMEN: Soft and nontender with normal bowel sounds. There was no organomegaly. LYMPH NODES: No lymphadenopathy was appreciated in the neck. EXTREMITIES: No cyanosis, clubbing or edema. NEUROLOGIC: Alert and oriented x 3. Normal affect. Objective Data Vital Signs Vital Signs: Vital Signs - 24 hr 12/25/20 10:51 12/25/20 12:00 12/25/20 14:15 Temperature Pulse Rate 76 73 Respiratory Rate 18 Blood Pressure 158/86 H Pulse Oximetry 12/25/20 14:22 12/25/20 16:00 12/25/20 18:58 Temperature 36.8 C 36.6 C Pulse Rate 72 87 84 Respiratory Rate 18 20 16 Blood Pressure 153/88 H 143/82 H Pulse Oximetry 98 98 12/25/20 20:00 12/25/20 20:31 12/25/20 20:32 Temperature Pulse Rate 79 75 Respiratory Rate 18 Blood Pressure Pulse Oximetry 96 96 12/25/20 20:43 12/25/20 23:29 12/26/20 00:00 Temperature 36.6 C Pulse Rate 78 73 75 Respiratory Rate 18 20 Blood Pressure 138/79 Pulse Oximetry 99 12/26/20 02:36 12/26/20 02:46 12/26/20 04:00 Temperature Pulse Rate 79 80 93 Respiratory Rate 18 18 Blood Pressure Pulse Oximetry 12/26/20 04:22 12/26/20 08:06 12/26/20 09:07 Temp
--- NOTE | 2020-12-26 11:12 | PM.DS ---
DS: Admitting Diagnosis Discharge Date 12/26/20 Admitting Diagnosis asthma exacerbation DS: Discharge Diagnosis Discharge Diagnosis (1) Asthma with acute exacerbation in adult: Qualifiers: Asthma persistence: persistent Asthma severity: moderate Qualified Code(s): J45.41 - Moderate persistent asthma with (acute) exacerbation Code(s): J45.901 - Unspecified asthma with (acute) exacerbation Status: Acute Assessment and Plan: Patient improved on IV steroids and was discharged on an oral prednisone taper -continue with albuterol and singular and he also takes Symbicort at home -he is going to follow up with pulmonology (2) HTN (hypertension), malignant: Code(s): I10 - Essential (primary) hypertension Status: Chronic Assessment and Plan: Last blood pressure 158/94 -continue home Coreg and nifedipine (3) Acute kidney injury: Code(s): N17.9 - Acute kidney failure, unspecified Status: Acute Assessment and Plan: Creatinine improved to 1.1 today -renal ultrasound normal -I recommended that the patient monitor his blood pressure and continue treatment for such -encouraged to continue to drink plenty of liquids after his CT with contrast during his hospitalization (4) Glaucoma: Qualifiers: Glaucoma type: unspecified Code(s): H40.9 - Unspecified glaucoma Status: Chronic Assessment and Plan: No acute issues (5) Elevated d-dimer: Code(s): R79.89 - Other specified abnormal findings of blood chemistry Status: Acute Assessment and Plan: Lower extremity ultrasound and CTA showed no evidence of clot. Could be due to acute asthma exacerbation? Cannot rule out other causes. I did speak to him about needing further workup for an EGD to ensure he does not underlying cancer. COVID-19 less likely (6) Abnormal CT of the chest: Code(s): R93.89 - Abnormal findings on diagnostic imaging of other specified body structures Status: Acute Assessment and Plan: Chest CT showed mild esophageal wall thickening which could be esophagitis or cancer. He was started on Protonix recently at 40 mg daily and think he should continue with that. I did speak with him and the about talking to his primary care physician to get a order for an EGD to ensure there is no underlying pathology. They are going to follow up his primary care physician. He also has mild mediastinal lymphadenopathy. Pulmonology is going to follow up with him in the office and may consider repeating his scan scan. DS: Summary Hospital Course Hospital Course: dos 12/26/20 Patient is a 60-year-old female who presented emergency room on 12/24/2020 for an asthma exacerbation with symptoms of cough, wheezing and chest tightness. He was previously seen by his primary care physician and prescribed azithromycin but that did not help. Vitals in the ER were temperature 36.6? C, pulse 82, respiratory rate 22, blood pressure 140/83, pulse ox 94 on room air. Initial white blood cell count 7.9, hemoglobin 12.6, hematocrit 38.0, platelets 141. BMP showed slight RADHA with a creatinine 1.7. Chest x-ray was negative. He was admitted to the hospitalist service and started on IV steroids. His symptoms greatly improved with this treatment. A D-dimer was drawn which was elevated to 5.82. A CTA and lower extremity ultrasound did not indicate any evidence of clots. D-dimer as noted above could be due to acute illness. COVID-19 seems less likely as he was vaccinated and his symptoms improved with oral steroids with a negative chest x-ray. He did have a CTA that showed esophagitis and he will need a follow-up with an EGD to rule out any underlying cancer (LDH also mildly high). He also should continue with routine health screenings. Troponins negative x3 and echocardiogram showed an EF of 70% with grade 1 diastolic dysfunction and no signifi
--- NOTE | 2020-12-26 12:35 | PC.NURSE ---
Patient discharged to home at 12:29. Education was provided on medication and follow-up physicians.
== END 2020-12-26 12:29 | disposition home or self-care (01) ==
LOC: ANHED 23:08 → ANHIMU 12-25 02:07
PROVIDERS: Nurse Practitioner; Physician Assistant; Admitting Provider Internal Medicine; Emergency Provider Emergency Medicine; PCP Emergency Medicine; Visit Provider Family Medicine
DX: J45.41 Moderate persistent asthma with (acute) exacerbation (principal); N17.9 Acute kidney failure, unspecified; R06.02 Shortness of breath; J98.6 Disorders of diaphragm; G47.33 Obstructive sleep apnea (adult) (pediatric); H40.9 Unspecified glaucoma; I10 Essential (primary) hypertension; R79.89 Other specified abnormal findings of blood chemistry; R93.89 Abnormal findings on diagnostic imaging of other specified body structures; R59.0 Localized enlarged lymph nodes; Z86.79 Personal history of other diseases of the circulatory system
CPT/HCPCS: 36415; 71046; 71275; 76775; 80048; 80053; 83036; 83615; 83735; 83880; 84484; 85025; 85027; 85380; 93005; 93306; 93970; 94640; 96361; 96372; 96374; 96376; 99285; A9270; G0378; J1644; J2920; J2930; J7120; Q9967

== ENCOUNTER 2021-02-19 22:03 | Observation (INO) | payer OTHER, SELFPAY ==
--- NOTE | ~2021-02-19 | XR_ITS ---
EXAMINATION: XR chest 2V DATE: 02/19/2021 23:51 INDICATION: Chest tightness TECHNIQUE: frontal and lateral views of the chest were obtained. COMPARISON: Chest radiograph dated 12/24/2020 FINDINGS: Chronic elevation of the left hemidiaphragm and eventration along the right hemidiaphragm with mild s treaky bibasilar atelectasis/scarring.. No other airspace opacities, pulmonary edema, pleural effusio n or pneumothorax. Heart size is normal. Median sternotomy wires. Aortic stent graft beginning at the anterior arch and extending into the proximal descending thoracic aorta. A couple surgical clips in the right infraclavicular region. IMPRESSION: 1. No acute cardiopulmonary disease. Reviewed, dictated and finalized at location [facility]
--- NOTE | 2021-02-19 22:05 | ECG_ITS ---
Measurements Intervals [place] Rate: 91 P: 53 HI: 230 QRS: 18 QRSD: 87 T: 201 QT: 321 QTc: 395 Interpretive Statements SINUS RHYTHM WITH FIRST DEGREE AV BLOCK DELAYED PRECORDIAL R/S TRANSITION LEFT VENTRICULAR HYPERTROPHY AND ST-T CHANGE ST-T WAVE ABNORMALITY IN DIFFUSE LEADS- CONSIDER ISCHEMIA BASELINE ARTIFACT- I, II, III, AVR, AVL ABNORMAL ECG Electronically Signed On 02-20-2021 6:16:48 [employer] by Sandeep Hunter D.O.
[2021-02-19 22:07] VITALS: BP 151/86; PULSE 89; RESP 24; TEMP 36.7; O2SAT 93
[2021-02-19 22:28] LABS: Basophils Percent Auto 0.6 % (0.2-1.2); Hematocrit 42.7 % (42.0-52.0); Hemoglobin 14.1 g/dL (14.0-18.0); Immature Granulocyte Absolute 0.02 K/mm3 (0.00-0.031); Immature Granulocyte Percent A 0.3 % (0-0.5); Lymphocytes Absolute Auto 1.71 K/mm3 (0.9-3.2); Lymphocytes Percent Auto 24.4 % (18.3-44.2); Mean Corpuscular Hemoglobin 31.3 pg (26-34); Mean Corpuscular Volume 94.7 fl (80-100); Mean Platelet Volume 11.4 fl (7.4-10.4); Monocytes Absolute Auto 0.7 K/mm3 (0.1-0.6); Monocytes Percent Auto 9.7 % (2.6-8.5); Neutrophils Absolute Auto 3.6 K/mm3 (1.3-6.7); Platelet Count Result 144 k/mm3 (150-375); Red Blood Count 4.51 M/mm3 (4.6-6.20); Red Cell Distribution Width 14.9 % (11.5-14.5)
[2021-02-19 22:39] LABS: Prothrombin Time 13.2 Seconds (11.1-14.7)
[2021-02-19 22:40] LABS: Partial Thromboplastin Time 32.5 SECONDS (22.3-36.8)
[2021-02-19] MEDS: ALBUTEROL SULFATE NEB 2.5 MG/3 ML INH (22:41)
[2021-02-19] MEDS: IPRATROPIUM BR 0.02% INH SOLN 0.5 MG/2.5 ML VIAL INHALATION (22:43)
[2021-02-19] MEDS: methylPREDNISolone SOD SUCC 125 MG VIAL IV PUSH (22:43)
--- NOTE | 2021-02-19 22:44 | ED.SOB ---
HPI - SOB/Dyspnea General Chief Complaint: Shortness of Breath/Dyspnea Stated Complaint: SOB, chest tightness Time Seen by Provider: 02/19/21 22:30 Source: patient Mode of arrival: ambulatory Limitations: no limitations History of Present Illness HPI Narrative: Patient is a 60-year-old male complaining of shortness of breath, it is my asthma started this evening. Patient states that he has been coughing today, clear sputum. Patient was seen here 2 months ago for the same complaints and was admitted due to asthma exacerbation. Patient denies any chest pain, abdominal pain, nausea, vomiting, diaphoresis, fever or chills. Related Data Home Medications Medication Instructions Recorded Confirmed carvedilol 25 mg PO BID 02/19/20 12/25/20 montelukast 10 mg PO HS 02/19/20 12/25/20 nifedipine 60 mg PO DAILY 05/14/20 12/25/20 pantoprazole 40 mg PO DAILY 12/25/20 12/25/20 Allergies Allergy/AdvReac Type Severity Reaction Status Date / Time [id number] Reductase AdvReac Wheezing Verified 12/24/20 20:18 Inhibitor Review of Systems Review of Systems: All systems reviewed & are unremarkable except as noted in HPI and below Constitutional: Constitutional: Denies body ache(s), Denies chills, Denies excessive sweating, Denies fatigue, Denies fever(s), Denies headache(s), Denies lethargy, Denies malaise, Denies weakness and Denies weight loss Eyes: Eyes: Denies blurry vision, Denies change in vision and Denies loss of vision ENT: Denies dizziness, Denies ear discharge, Denies headache(s), Denies lip swelling, Denies epistaxis, Denies nasal congestion, Denies neck pain, Denies throat swelling and Denies tongue swelling Cardiovascular: Cardiovascular: Denies chest pain, Denies chest pain at rest, Denies chest pain with activity, Denies diaphoresis, Denies rapid heart rate, Denies edema, Denies irregular heart rhythm, Denies lightheadedness and Denies palpitations Respiratory: Respiratory: Denies chest congestion and Denies hemoptysis Gastrointestinal: Gastrointestinal: Denies abdominal pain, Denies melena, Denies hematochezia, Denies diarrhea, Denies nausea, Denies vomiting and Denies hematemesis Musculoskeletal: Musculoskeletal: Denies abnormal gait, Denies deformity, Denies joint swelling, Denies limited range of motion, Denies neck pain and Denies numbness Neurologic: Denies Abnormal speech present, Denies abnormal gait, Denies confusion, Denies dizziness, Denies headache(s), Denies focal weakness, Denies loss of vision, Denies numbness, Denies Other visual disturbances, Denies Sensory deficit (Neuro) and Denies weakness Psychiatric: Psychiatric: Denies confusion, Denies depression, Denies auditory hallucinations, Denies homicidal ideation and Denies suicidal ideation Endocrine: Endocrine: Denies cold intolerance, Denies excessive sweating, Denies fatigue, Denies heat intolerance and Denies palpitations Hematologic/Lymphatic: Hematologic/Lymphatic: Denies easy bleeding and Denies easy bruising Allergic/Immunologic: Allergic/Immunologic: Denies lip swelling, Denies throat swelling and Denies tongue swelling PMFSH Past Medical History Medical History Acute kidney injury Close exposure to 2019-nCoV Glaucoma HTN (hypertension), malignant Hypertension Surgical History Surgical History S/P AAA repair Family History Family History Mother Hypertension Sibling Hypertension Son Diabetes mellitus Type 1 Social History Social History Social History: The patient lives with his and has 2 children a son and a daughter. The patient does not currently work. The patient is lifelong nonsmoker does not drink alcohol or use illicit drugs. 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 Code
[2021-02-19 22:49] LABS: Alanine Aminotransferase 42 U/L (4-50); Albumin Level 4.2 g/dL (3.5-5.1); Alkaline Phosphatase 66 U/L (38-126); Anion Gap 6 mmol/L (8-16); Aspartate Amino Transferase 34 U/L (17-59); Bilirubin,Total 0.4 mg/dL (0.2-1.3); Blood Urea Nitrogen 22 mg/dL (9-20); Carbon Dioxide 29 mmol/L (22-30); Chloride 100 mmol/L (98-107); Estimated CRCL calculation 69 ml/min; Estimated Glomerular Filt Rate 52; Glucose 116 mg/dL (65-110); Lipase 141 U/L (23-300); Potassium 3.7 mmol/L (3.4-5.0); Sodium 135 mmol/L (137-145)
[2021-02-19 23:01] LABS: Troponin I < 0.012 ng/mL (0.000-0.034)
[2021-02-19 23:11] LABS: Alveolar/Arterial O2 Gradient 87.1 mmHg; Base Excess ABG 1.8 mEq/l (+/-2.0); Fractional Inspired Oxygen 28 %; HCO3 ABG 25.2 mEq/l (22.0-26.0); Methemoglobin ABG 0.2 %THb (0-1.5); Oxygen Content ABG 18.6 %vol (16.0-22.0); Oxygen Saturation ABG 95.1 % (95.0-100.0); Oxyhemoglobin 92.9 % THb (90.0-100.0); PCO2 ABG 35.7 mmHg (35.0-45.0); PO2 ABG 70.4 mmHg (80.0-100.0); PO2 FiO2 Ratio Arterial Blood 2.51 %; Reduced Hemoglobin 5.9 %THb (0-5.0); Total Hemoglobin 14.2 g/dL (12.0-18.0); pH ABG 7.466 (7.350-7.450)
[2021-02-19 23:12] VITALS: O2SAT 95
[2021-02-19 23:13] LABS: Device NASAL CANNULA; Modified Allen's Test Pass; Site Drawn LEFT RADIAL
[2021-02-19 23:17] VITALS: PULSE 78
[2021-02-19 23:23] VITALS: O2SAT 97
--- NOTE | 2021-02-19 23:31 | PC.NURSE ---
Called lab at [phone] agreed to add BNP to blood in lab
[2021-02-19 23:47] VITALS: PULSE 73; RESP 13; O2SAT 96
[2021-02-19 23:50] VITALS: BP 120/77; PULSE 74; RESP 19; O2SAT 95
[2021-02-19 23:50] LABS: NT Pro B Type Natriuretic Pept 241 pg/mL (5-100)
[2021-02-20] VITALS (22 sets, daily range): BP systolic 125–138; BP diastolic 71–88; PULSE 68–92; RESP 14–20; TEMP 36.1–36.5; O2SAT 95–98; BMI 36.6
--- NOTE | 2021-02-20 01:13 | PM.IMHP ---
H&P: HPI History of Present Illness Date/Time: 02/20/21 01:13 Chief Complaint: Shortness of breath. Narrative: This is a 60-year-old male with past medical history significant for asthma, aortic aneurysm status post repair, chronic kidney disease, hypertension, GERD. Patient presented to the emergency room after several days of shortness of breath and wheezing has been using his albuterol at home but has not gotten better. Also has had a dry cough, no fevers, no rigors, no chills, no nausea ,no vomiting ,no abdominal pain, no diarrhea ,no leg swelling, no chest pain, no PND ,no orthopnea. Preliminary workup has been essentially nonrevealing. Review of Systems Review of Systems: Shortness of breath and wheezing for several days. Constitutional: Constitutional: Denies chills, Denies fever(s) and Denies night sweats Eyes: Eyes: Denies change in vision ENT: Denies dysphagia, Denies vertigo, Denies dizziness, Denies nasal congestion, Denies nasal discharge, Denies nasal obstruction and Denies odynophagia Cardiovascular: Cardiovascular: Denies chest pain at rest, Denies irregular heart rhythm, Denies leg edema, Denies lightheadedness, Denies radiating jaw, neck or arm pain, Denies palpitations, Denies dyspnea on exertion and Denies orthopnea Respiratory: Respiratory: Denies chest congestion, Reports cough, Denies excessive phlegm production, Denies pain on inspiration, Denies pain with cough, Reports dyspnea and Reports wheezing Gastrointestinal: Gastrointestinal: Denies abdominal pain, Denies heartburn, Denies diarrhea, Denies nausea and Denies vomiting Genitourinary: Genitourinary: Denies dysuria Musculoskeletal: Musculoskeletal: Denies back pain, Denies arthralgias, Denies joint swelling, Denies muscle weakness and Denies neck pain Integumentary/Breasts: Skin/Breast: Denies rash Neurologic: Denies focal weakness and Denies Sensory deficit (Neuro) Psychiatric: Psychiatric: Reports no additional psychiatric complaints and Reports as per HPI Endocrine: Endocrine: Reports no additional endocrine complaints and Reports as per HPI Hematologic/Lymphatic: Hematologic/Lymphatic: Reports no additional hematologic/lymphatic complaints and Reports as per HPI Allergic/Immunologic: Allergic/Immunologic: Reports no additional allergic/immunologic complaints and Reports as per HPI [facility] Past Medical History Medical History Acute kidney injury Close exposure to 2019-nCoV Glaucoma HTN (hypertension), malignant Hypertension Surgical History Surgical History S/P AAA repair Family History Family History Mother Hypertension Sibling Hypertension Son Diabetes mellitus Type 1 Social History Social History Social History: The patient lives with his and has 2 children a son and a daughter. The patient does not currently work. The patient is lifelong nonsmoker does not drink alcohol or use illicit drugs. 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 Code status full code Smoking status: Never smoker Alcohol intake: never Substance use: never Spiritual care concerns: No Meds Home Medications and Allergies Home Medications Medication Instructions Recorded Confirmed Type albuterol sulfate 2 puff INHALATION QID PRN #6.7 g 02/19/20 02/20/21 Rx carvedilol 25 mg PO BID 02/19/20 02/20/21 History montelukast 10 mg PO HS 02/19/20 02/20/21 History nifedipine 60 mg PO DAILY 05/14/20 02/20/21 History pantoprazole 40 mg PO DAILY 12/25/20 02/20/21 History albuterol sulfate 1.25 mg INHALATION Q4H PRN #90 ml 12/26/20 02/20/21 Rx budesonide-formoterol [Symbicort] 2 puff INHALATION BID 02/20/21 02/20/21 History latanoprost 1 drp EACH EYE HS 02/20/21 02/20/21 History Allergies Allergy/
[2021-02-20] MEDS: ALBUTEROL SULFATE NEB 2.5 MG/0.5 ML INH 5 MG INHALATION ×4 (01:15→22:07)
[2021-02-20] MEDS: MAGNESIUM SULF 2 GM/WATER 50ML 2 GM/50 ML BAG IVPB (02:15)
--- NOTE | 2021-02-20 03:04 | ADMGEN ---
This patient, Chace Irvin, was admitted to 2 Medical Room 261-01. Patient/family oriented to hospital policies and general routines including ID bracelet, bed and alarms, visiting hours, pain management, procedures, bathroom and other care routines, personal items, smoking policy, room service/diet, and visiting hours. Information on how to activate the Rapid Response Team has been discussed. Patient/Family are encouraged to report perceived risks to care and to ask questions if they do not understand what they are told or what they should do.
[2021-02-20] MEDS: LACTATED RINGERS 1,000 ML 125 ML IV CONT ×3 (03:20→20:30)
[2021-02-20 05:04] LABS: Troponin I < 0.012 ng/mL (0.000-0.034)
[2021-02-20] MEDS: methylPREDNISolone SOD SUCC 40 MG VIAL IV PUSH ×4 (06:10→23:14)
[2021-02-20] MEDS: NIFEdipine 30 MG TAB.ER.24 60 MG PO (09:41)
[2021-02-20] MEDS: carvediloL 25 MG TABLET PO ×2 (09:41→20:45)
[2021-02-20] MEDS: PANTOPRAZOLE 40 MG TABLET PO (09:41)
--- NOTE | 2021-02-20 10:18 | PM.CNPUL ---
Assessment and Plan Assessment and plan (1) Asthma with acute exacerbation in adult: Qualifiers: Asthma persistence: unspecified Asthma severity: unspecified severity Qualified Code(s): J45.901 - Unspecified asthma with (acute) exacerbation Code(s): J45.901 - Unspecified asthma with (acute) exacerbation Status: Acute Assessment and Plan: 60-year-old man with a history of asthma presented with wheezing and chest tightness related to asthma exacerbation. Patient is already improved following treatment with IV steroids and short-acting bronchodilators. On today's exam there is no evidence of wheezing and patient is breathing ambient air. The plan is as follows. I would switch patient to oral steroids starting in am with prednisone 40 mg p.o. daily. I have discontinued the anticholinergic short-acting bronchodilators because of history of glaucoma. Consider starting patient on DVT prophylaxis. I reminded the patient that he needs to return to pulmonary clinic for follow-up for his asthma, untreated sleep apnea and also mild mediastinal lymph node enlargement on last chest CT. The patient wanted to check with his regarding further follow-up. In fact she tried to call her but she was unavailable. (2) Sleep apnea: Qualifiers: Sleep apnea type: obstructive Qualified Code(s): G47.33 - Obstructive sleep apnea (adult) (pediatric) Code(s): G47.30 - Sleep apnea, unspecified Status: Acute (3) Glaucoma: Qualifiers: Glaucoma type: unspecified Code(s): H40.9 - Unspecified glaucoma Status: Chronic (4) Elevated diaphragm: Code(s): J98.6 - Disorders of diaphragm Status: Acute History of Present Illness History of Present Illness Consult date: 02/20/21 Chief complaint: Asthma Exacerbation Narrative: This 60-year-old man presented with a few day history of cough chest tightness and wheezing. The patient has a history of asthma, untreated sleep apnea, history of previous surgery for aortic dissection, history of glaucoma. The patient is well known to me as he was hospitalized and evaluated for asthma exacerbation approximately 2 months ago. Patient has not been seen in the outpatient Pulmonary Clinic since then. He was in his usual state of health until approximately several days ago when he started having cough chest tightness and some wheezing. He had no fever chills hemoptysis or chest pain. The patient was using his rescue inhaler more often than before. He was diagnosed with asthma exacerbation and has been on treatment with short-acting bronchodilators and IV steroids. Over the last 24 hours the patient's symptoms have significantly improved. Currently he is complaining of mild cough but no wheezing. He has no sputum production. He has no chest pain or shortness of breath. He is on room air. On last chest CT there was evidence of mild mediastinal lymph node enlargement. As stated the patient was asked to return to Pulmonary Clinic for follow-up following hospitalization in November but never showed up. Review of Systems Review of Systems: All systems reviewed & are unremarkable except as noted in HPI and below (H and P and below.) [facility] Past Medical History Medical History Acute kidney injury Close exposure to 2019-nCoV Glaucoma HTN (hypertension), malignant Hypertension Surgical History Surgical History S/P AAA repair Family History Family History Mother Hypertension Sibling Hypertension Son Diabetes mellitus Type 1 Social History Social History Social History: The patient lives with his and has 2 children a son and a daughter. The patient does not currently work. The patient is li
[2021-02-20] MEDS: FLUTICASONE/SALMETEROL 115-21 MCG INHALER 1 PUFF 2 PUFF INHALATION ×2 (10:47→22:07)
[2021-02-20] MEDS: guaiFENesin/DEXTROMETHORPHAN 10 ML UDC 5 ML PO ×3 (12:16→22:10)
--- NOTE | 2021-02-20 17:40 | PM.IMPN ---
Progress Note: A&P Assessment and Plan (1) Asthma with acute exacerbation in adult: Qualifiers: Asthma persistence: unspecified Asthma severity: unspecified severity Qualified Code(s): J45.901 - Unspecified asthma with (acute) exacerbation Code(s): J45.901 - Unspecified asthma with (acute) exacerbation Status: Acute Assessment and Plan: Place in observation Breathing treatments Systemic steroid Supportive care (2) HTN (hypertension), malignant: Code(s): I10 - Essential (primary) hypertension Status: Chronic Assessment and Plan: Continue home meds Continue to monitor (3) Chronic kidney disease: Code(s): N18.9 - Chronic kidney disease, unspecified Status: Acute Assessment and Plan: BUN and creatinine at patient's baseline Continue to monitor Subjective Date/time seen: 02/20/21 17:41 Interval history: I agree with current assessment and plan. Will continue to monitor. Objective Data Vital Signs Vital Signs: Vital Signs - 24 hr 02/19/21 22:07 02/19/21 23:12 02/19/21 23:17 Temperature 36.7 C Pulse Rate 89 78 Respiratory Rate 24 H Blood Pressure 151/86 H Pulse Oximetry 93 95 02/19/21 23:23 02/19/21 23:47 02/19/21 23:50 Temperature Pulse Rate 73 74 Respiratory Rate 13 19 Blood Pressure 120/77 Pulse Oximetry 97 96 95 02/20/21 00:00 02/20/21 00:01 02/20/21 00:15 Temperature Pulse Rate 73 71 69 Respiratory Rate 16 20 18 Blood Pressure 135/81 Pulse Oximetry 96 96 95 02/20/21 00:16 02/20/21 01:27 02/20/21 02:50 Temperature Pulse Rate 68 88 78 Respiratory Rate 18 18 Blood Pressure 125/71 Pulse Oximetry 95 98 02/20/21 03:13 02/20/21 04:00 02/20/21 08:00 Temperature 36.1 C L Pulse Rate 79 75 85 Respiratory Rate 14 Blood Pressure 137/88 Pulse Oximetry 97 02/20/21 09:41 02/20/21 10:40 02/20/21 10:51 Temperature Pulse Rate 88 80 83 Respiratory Rate 20 20 Blood Pressure Pulse Oximetry 95 02/20/21 12:00 02/20/21 14:39 02/20/21 15:20 Temperature 36.5 C Pulse Rate 82 91 92 Respiratory Rate 20 20 Blood Pressure 135/75 Pulse Oximetry 98 02/20/21 15:32 02/20/21 16:00 Temperature Pulse Rate 89 89 Respiratory Rate 20 Blood Pressure Pulse Oximetry Intake/Output Intake/Output: Intake & Output 02/17/21 02/18/21 02/19/21 02/20/21 23:59 23:59 23:59 23:59 Intake Total 1410 Balance 1410 Meds/Results Medications: Active Medications Generic Name Dose Route Start Last Admin Trade Name Freq PRN Reason Stop Dose Admin Albuterol 5 mg 02/20/21 02:00 02/20/21 15:33 Albuterol Sulfate Neb 2.5 Mg/0.5 Ml Inh INHALATION Not Given Q6HRT EMILIA Albuterol 2 puff 02/20/21 04:05 Albuterol Sulfate (*Sp) Aerosol 1 Puff INHALATION QID PRN shortness of breath or wheezing Carvedilol 25 mg 02/20/21 09:00 02/20/21 09:41 Carvedilol 25 Mg Tablet PO 25 mg Q12HR EMILIA Administration Guaifenesin/Dextromethorphan 5 ml 02/20/21 11:33 02/20/21 12:16 Guaifenesin/Dextromethorphan 10 Ml Udc PO 5 ml Q4H PRN Administration Cough Lactated Ringer's 1,000 mls @ 125 mls/hr 02/20/21 00:50 02/20/21 12:22 Lr - Lactated Ringers Iv IV CONT 125 mls/hr .Q8H EMILIA Administration Latanoprost 1 drop 02/20/21 21:00 Latanoprost 0.005% Op Soln 2.5 Ml Btl EACH EYE HS EMILIA Methylprednisolone Sodium Succinate 40 mg 02/20/21 06:00 02/20/21 17:38 Methylprednisolone Sod Succ 40 Mg Vial IV PUSH 40 mg Q6H EMILIA Administration Montelukast Sodium 10 mg 02/20/21 21:00 Montelukast Sodium 10 Mg Tablet PO HS EMILIA Nifedipine 60 mg 02/20/21 09:00 02/20/21 09:41 Nifedipine 30 Mg Tab.Er.24 PO 60 mg DAILY EMILIA Administration Non-Formulary Medication 1.25 mg 02/20/21 04:05 Albuterol Sulfate INHALATION Q4H PRN shortness of breath or wheezing Pantoprazole Sodium 40 mg 02/20/21 09:00
[2021-02-20] MEDS: LATANOPROST 0.005% OP SOLN 2.5 ML BTL 1 DROP EACH EYE (20:45)
[2021-02-20] MEDS: MONTELUKAST SODIUM 10 MG TABLET PO (20:45)
[2021-02-21] VITALS: PULSE 88
[2021-02-21 03:22] VITALS: PULSE 90; RESP 20
[2021-02-21] MEDS: ALBUTEROL SULFATE NEB 2.5 MG/0.5 ML INH 5 MG INHALATION (03:29)
[2021-02-21 03:33] VITALS: PULSE 90; RESP 20
[2021-02-21 04:00] VITALS: PULSE 80
[2021-02-21] MEDS: methylPREDNISolone SOD SUCC 40 MG VIAL IV PUSH (05:10)
[2021-02-21] MEDS: LACTATED RINGERS 1,000 ML 125 ML IV CONT (05:13)
[2021-02-21 05:40] VITALS: BP 133/74; PULSE 82; RESP 20; TEMP 36.6; O2SAT 95
[2021-02-21 08:00] VITALS: PULSE 75
--- NOTE | 2021-02-21 09:34 | PM.PNPUL ---
Progress Note: A&P Assessment and Plan (1) Asthma with acute exacerbation in adult: Qualifiers: Asthma persistence: unspecified Asthma severity: unspecified severity Qualified Code(s): J45.901 - Unspecified asthma with (acute) exacerbation Code(s): J45.901 - Unspecified asthma with (acute) exacerbation Status: Acute Assessment and Plan: 60-year-old man with history of asthma presented with cough and chest tightness. Has been treated for asthma exacerbation with clinical improvement; he no longer has wheezing but mild cough persists. On physical exam there is no evidence of wheezing. Patient has had 2 asthma exacerbations over the last 3 months. He has the eosinophilic asthma phenotype as eosinophil count was markedly elevated on each of these hospitalizations. The patient did not show up for follow-up of his asthma following 1st hospitalization in November. Had a lengthy discussion with the patient and his via telephone regarding further management of his difficult to control asthma. Patient's wanted a new medications to start now so that his asthma is better controlled. 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 We cannot use Lama medications for his asthma because of glaucoma. I told patient that he cannot use ipratropium bromide or Spiriva for that matter. He will continue with his maintenance ICS Laba inhaler, Singulair and albuterol as a rescue inhaler. He will be on a prednisone taper regimen starting 40 mg prednisone today with plan to DC steroids over the next 2 weeks. The case was discussed with the hospitalist regarding home medications. I again emphasized to him the need to come to outpatient pulmonary clinic foe evaluation with pulmonary function testing, exhaled NO measurement and possibly consider biologicals for his difficult to control asthma. He also need to have repeat sleep study as he has history of sleep apnea on no treatment.The patient verbalized understanding. He will call to make an appointment to be seen in the outpatient clinic in about 2-3 weeks from today. (2) Elevated diaphragm: Code(s): J98.6 - Disorders of diaphragm Status: Acute (3) Sleep apnea: Qualifiers: Sleep apnea type: obstructive Qualified Code(s): G47.33 - Obstructive sleep apnea (adult) (pediatric) Code(s): G47.30 - Sleep apnea, unspecified Status: Acute (4) Mediastinal lymphadenopathy: Code(s): R59.0 - Localized enlarged lymph nodes Status: Acute Assessment and Plan: on last chest CT there was evidence of borderline mediastinal lymphadenopathy. Need to evaluate patient with a repeat chest CT in about 4-6 months. Subjective Date/time seen: 02/21/21 09:34 Patient feels better. Has no shortness of breath or wheezing. Only mild cough. On room air. Eager to go home Review of Systems Review of Systems: All systems reviewed & are unremarkable except as noted in HPI and below (H and P and below.) Exam Narrative: GENERAL APPEARANCE: Well developed, well nourished, alert and cooperative, who appears to be in no acute distress SKIN: Inspection of the skin reveals no rashes, ulcerations or petechiae. HEENT: Sclerae anicteric and conjunctivae pink and moist. Extraocular movements were intact and pupils were equal, round, and reactive to light. NECK: Supple. There was no thyroid enlargement, and no tenderness, or masses were felt. LUNGS: Auscultation of the lungs revealed normal breath sounds without any other adventitious sounds or rubs. CARDIAC: There was a regular rate and rhythm without any murmurs, gallops, rubs. ABDOMEN: Soft and nontender with normal bowel sounds. There was no organomegaly. LYMPH NODES: No lymphadenopathy was appreciated in the neck. EXTREMITIES: No cyanosis, clubbing or edema. NEUROLOGIC: Alert and oriented x 3. Normal affect. Objective Data Vital Signs Vital Signs: Vital Signs - 24 hr
--- NOTE | 2021-02-21 10:00 | PM.DS ---
DS: Admitting Diagnosis Discharge Date 02/21/2021 Admitting Diagnosis shortness of breath DS: Discharge Diagnosis Discharge Diagnosis (1) Asthma with acute exacerbation in adult: Qualifiers: Asthma persistence: unspecified Asthma severity: unspecified severity Qualified Code(s): J45.901 - Unspecified asthma with (acute) exacerbation Code(s): J45.901 - Unspecified asthma with (acute) exacerbation Status: Acute Assessment and Plan: Place in observation Breathing treatments Systemic steroid Supportive care (2) HTN (hypertension), malignant: Code(s): I10 - Essential (primary) hypertension Status: Chronic Assessment and Plan: Continue home meds Continue to monitor (3) Chronic kidney disease: Code(s): N18.9 - Chronic kidney disease, unspecified Status: Acute Assessment and Plan: BUN and creatinine at patient's baseline Continue to monitor DS: Summary Hospital Course Reason for hospitalization: Chief Complaint: Shortness of breath. Narrative: This is a 60-year-old male with past medical history significant for asthma, aortic aneurysm status post repair, chronic kidney disease, hypertension, GERD. Patient presented to the emergency room after several days of shortness of breath and wheezing has been using his albuterol at home but has not gotten better. Also has had a dry cough, no fevers, no rigors, no chills, no nausea ,no vomiting ,no abdominal pain, no diarrhea ,no leg swelling, no chest pain, no PND ,no orthopnea. Preliminary workup has been essentially nonrevealing. Hospital Course: Today patient states feeling much better, was seen by his or manager and was evaluated patient is clinically stable and has improved, according to pulmonology patient can be discharged home and will follow-up the clinic an outpatient, a give updates to patient's , will discharge the patient Status at Discharge Functional status at discharge: independent ambulation Overall status at discharge: patient is back to baseline Time Spent with Patient Time attestation: Total time spent providing and/or coordinating discharge services: Patient was seen and examined at the time of the discharge Condition at discharge is stable Code status: Full code. Time spent preparing discharge summary, discharge medications, discussing discharge planning with disability case manager and patient is 35 minutes. Time spent: Greater than 30 minutes Exam Narrative: moderately over Patient is comfortable, NAD HEENT: eyes are clear and none icteric LUNGS:CTA HEART: RR S1S2 ABD: BS+, Soft and nontender Lower extremities: no edema SKIN: nonjaundiced Neuro: grossly intact. Discharge Plan Discharge Attending physician on discharge: Cristofer Alexis Consulting providers: Sawyer Roach ; Regina Villa ; Jose Lindsay ; Sandeep Hunter Discharging Clinician: Cristofer Alexis Patient Disposition: Home, Self-Care Activity: as tolerated Diet: heart healthy Discharge Instructions: Patient will follow up with Dr. Camacho his or manager as scheduled and primary care provider as soon as possible, patient is instructed if any symptoms get worsen to go to nearest ER Patient Instructions: Antibiotic Form Stand Alone Forms: General Discharge Information Follow-up/Referrals: Ba Espino MD [Primary Care Provider] - Sawyer Roach MD [Physician] - Discharge Medications: New dextromethorphan-guaifenesin 10-100 mg/5 mL Syrup 5 ml PO Q4H PRN (Reason: Cough) Qty: 237 RF: 0 prednisone 10 mg tablet 10 mg PO DAILY Qty: 30 RF: 0 Continued carvedilol 25 mg tablet 25 mg PO BID RF: 0 montelukast 10 mg tablet 10 mg PO HS RF: 0 albuterol sulfate 90 mcg/actuation HFA aerosol inhaler 2 puff inhalation QID PRN (Reason: shortness of breath or wheezing) Qty: 6.7 RF: 0 latanoprost 0.005 % drops 1 drp EACH EYE HS RF: 0 budesonide-formoterol [S
== END 2021-02-21 10:41 | disposition home or self-care (01) ==
LOC: ANHED 02-20 00:56 → ANH2MED 02-20 10:38
PROVIDERS: Emergency Medicine; Admitting Provider Internal Medicine; Emergency Provider Emergency Medicine; PCP Emergency Medicine; Visit Provider Family Medicine
DX: J45.901 Unspecified asthma with (acute) exacerbation (principal); R07.89 Other chest pain; R59.0 Localized enlarged lymph nodes; I12.9 Hypertensive chronic kidney disease with stage 1 through stage 4 chronic kidney disease, or unspecified chronic kidney disease; N18.9 Chronic kidney disease, unspecified; G47.30 Sleep apnea, unspecified; J98.6 Disorders of diaphragm; H40.9 Unspecified glaucoma; Z79.51 Long term (current) use of inhaled steroids
CPT/HCPCS: 36415; 36600; 71046; 80053; 82375; 82805; 83050; 83690; 83880; 84484; 85025; 85610; 85730; 93005; 94640; 96361; 96365; 96374; 96375; 96376; 99285; A9270; G0378; J2920; J2930; J3475; J7120

== ENCOUNTER 2021-04-12 07:56 | Outpatient (CLI) | payer OTHER, SELFPAY ==
--- NOTE | 2021-04-12 12:47 | WPDPFTINT ---
PFT Procedure Performed PFT Procedure Performed Spirometry with Pre/Post Bronchodilator Plethysmography (Lung Vol) Diffusing Cap (DLCO) Flow Vol Loop PFT Interpretation This is a pulmonary function test with pre and post-bronchodilator spirometry, plethysmography and diffusing capacity. The test was performed and results interpreted in accordance with the 2019 and 2005 ATS/ERS Task Force guidelines respectively using the Global Lung Function Initiative-2012 reference equations. Patient demonstrated good effort and cooperation. Reproducibility criteria were met. The quality of the pre bronchodilator spirometry maneuver was Grade A and post bronchodilator spirometry maneuver was Grade A. of note, the patient had difficulty with all trials of spirometry. he was able to provide only 1 DLCO trial. Findings: Spirometry: There is decreased maximal expiratory airflow at all lung volumes with concave expiratory flow tracing. The pre bronchodilator FVC is 2.54 L, 60% predicted. The pre bronchodilator FEV1 is 1.30 L, 39% predicted. The FEV1: FVC ratio is 51%. The post bronchodilator FVC is 1.91 L, representing a 25% decrease. The post bronchodilator FEV1 is 1.17 L, representing a 10% decrease. The post bronchodilator FEV1: FVC ratio 61%. Plethysmography: The total lung capacity is 5.57, 85% predicted. The functional residual capacity is 2.66 L, 74% predicted. The residual volume is 2.23 L, 104% predicted. Diffusion capacity: The diffusing capacity unadjusted for hemoglobin is 13.4, 45% predicted. The diffusing capacity adjusted for alveolar volume is 5.19, 124% predicted. Impression: There is a severe obstructive abnormality without significant improvement after inhaling a single dose of albuterol. The lung volumes are normal. The diffusing capacity unadjusted for hemoglobin is moderately decreased and normalizes when adjusted for alveolar volume. There are no prior studies for comparison
== END 2021-04-12 07:57 | disposition home or self-care (01) ==
PROVIDERS: PCP Emergency Medicine; Visit Provider Internal Medicine Pulmonary Disease
DX: J45.909 Unspecified asthma, uncomplicated (principal); R94.2 Abnormal results of pulmonary function studies
CPT/HCPCS: 94060; 94726; 94729

== ENCOUNTER 2021-04-30 00:40 | Day surgery (SDC) | payer OTHER, SELFPAY ==
[2021-04-19 12:06] VITALS: BMI 37.8
[2021-04-30 11:45] VITALS: BP 158/84; PULSE 77; RESP 18; TEMP 36.1; O2SAT 98
[2021-04-30] MEDS: LACTATED RINGERS 1,000 ML 150 ML IV CONT (12:00)
[2021-04-30] MEDS: GENTAMICIN 80MG/SOD CHL 50 ML 80 MG/50 ML BAG 100 MG IVPB (12:01)
--- NOTE | 2021-04-30 12:18 | WPDANESEPPF ---
Anes - Initial Pre Proc Eval Procedure: Operation Date: 04/30/21 13:00 Proposed Procedures p Esophagogastroduodenoscopy & Screening Colonoscopy - Wes Jett MD Date/Time: 04/30/21 12:18 Surgeon: Wes Jett MD Pre Op Diagnosis: GERD, neoplasm screening Patient Data Age: 60 Gender: M Height: 1.83 m Weight: 119 kg Last Vital Signs Temp 97 F L 04/30/21 11:45 Pulse 77 04/30/21 11:45 Resp 18 04/30/21 11:45 BP 158/84 H 04/30/21 11:45 Pulse Ox 98 04/30/21 11:45 Allergies Allergy/AdvReac Type Severity Reaction Status Date / Time [id number] Reductase AdvReac Wheezing Verified 04/30/21 11:44 Inhibitor Home Medications Medication Instructions Recorded Confirmed Type albuterol sulfate 2 puff INHALATION QID PRN #6.7 g 02/19/20 04/19/21 Rx carvedilol 25 mg PO BID 02/19/20 04/19/21 History montelukast 10 mg PO HS 02/19/20 04/19/21 History nifedipine 60 mg PO DAILY 05/14/20 04/19/21 History pantoprazole 40 mg PO DAILY 12/25/20 04/19/21 History albuterol sulfate 1.25 mg INHALATION Q4H PRN #90 ml 12/26/20 04/19/21 Rx budesonide-formoterol [Symbicort] 2 puff INHALATION BID 02/20/21 04/19/21 History latanoprost 1 drp EACH EYE HS 02/20/21 04/19/21 History spironolactone 25 mg PO DAILY 04/19/21 04/19/21 History Patient hx anesthesia problems: none Family hx anesthesia problems: none Results Review: All pre-operative results and documents have been reviewed as part of the pre-operative evaluation. [facility] Past Medical History Medical History Acute kidney injury Close exposure to 2019-nCoV Glaucoma HTN (hypertension), malignant Hypertension Surgical History Surgical History S/P AAA repair Family History Family History Mother Hypertension Sibling Hypertension Son Diabetes mellitus Type 1 Social History Social History Social History: The patient lives with his and has 2 children a son and a daughter. The patient does not currently work. The patient is lifelong nonsmoker does not drink alcohol or use illicit drugs. The is the durable power research attorney for healthcare. Code status full code Smoking status: Never smoker Alcohol intake: never Substance use: never Substance use type: does not use Living arrangements: with family Spiritual care concerns: No Anes - Eval Final PreProcedure Day of Procedure 04/30/21 12:18 Patient weight: obese Heart: regular rate and rhythm Lungs: clear to auscultation Airway: Mallampati scale class II Neurological: alert and oriented Last oral intake: >/= 8 hours ASA classification: III Emergent: no Anesthetic plan: proceed Anesthesia type and monitoring: general GIVS and standard monitoring Results Review: All pre-operative results and documents have been reviewed as part of the pre-operative evaluation. Informed Consent: The patient's anesthetic plan and its attendant risks and benefits were discussed with the patient/family/POA. Questions were solicited and answers provided to the satisfaction of the patient/family/POA.
[2021-04-30] MEDS: AMPICILLIN 2 GM/NS 100 ML 2 GM/100 ML BAG IVPB (12:22)
--- NOTE | 2021-04-30 12:39 | PM.HPGS ---
History of Present Illness History of Present Illness Consent: Risks, benefits, and alternatives have been discussed and questions answered. Patient agrees to proceed with procedure. Chief complaint: GERD, neoplasm screening Narrative: Chace Irvin is a 60 year old male with gerd controlled with pantoprazole, CT Scan months ago showed distal thickening esophagus c/w esophagitis (it was ordered to assess aorta), he had egd but years ago. Also due to have colonoscopy. Review of Systems Constitutional: Constitutional: Denies headache(s) and Denies weakness Eyes: Eyes: Denies blurry vision ENT: Reports Normal hearing present, Denies headache(s) and Denies neck pain Cardiovascular: Cardiovascular: Denies chest pain and Denies dyspnea Respiratory: Respiratory: Denies dyspnea Gastrointestinal: Gastrointestinal: Reports no additional gastrointestinal complaints Genitourinary: Genitourinary: Denies dysuria Musculoskeletal: Musculoskeletal: Denies neck pain Integumentary/Breasts: Skin/Breast: Denies dry skin Neurologic: Reports Normal hearing present, Denies headache(s) and Denies weakness Psychiatric: Psychiatric: Denies anxiety Endocrine: Endocrine: Denies change in body appearance Hematologic/Lymphatic: Hematologic/Lymphatic: Denies easy bleeding Allergic/Immunologic: Allergic/Immunologic: Denies urticaria PMFSH Past Medical History Medical History (Updated 04/30/21 @ 12:41 by Wes Jett MD) Acute kidney injury Close exposure to 2019-nCoV Colon cancer screening GERD (gastroesophageal reflux disease) Glaucoma HTN (hypertension), malignant Hypertension Surgical History Surgical History S/P AAA repair Family History Family History Mother Hypertension Sibling Hypertension Son Diabetes mellitus Type 1 Social History Social History Social History: The patient lives with his and has 2 children a son and a daughter. The patient does not currently work. The patient is lifelong nonsmoker does not drink alcohol or use illicit drugs. The is the durable power traffic law attorney for healthcare. Code status full code Smoking status: Never smoker Alcohol intake: never Substance use: never Substance use type: does not use Living arrangements: with family Spiritual care concerns: No Meds Home Medications and Allergies Home Medications Medication Instructions Recorded Confirmed Type albuterol sulfate 2 puff INHALATION QID PRN #6.7 g 02/19/20 04/19/21 Rx carvedilol 25 mg PO BID 02/19/20 04/19/21 History montelukast 10 mg PO HS 02/19/20 04/19/21 History nifedipine 60 mg PO DAILY 05/14/20 04/19/21 History pantoprazole 40 mg PO DAILY 12/25/20 04/19/21 History albuterol sulfate 1.25 mg INHALATION Q4H PRN #90 ml 12/26/20 04/19/21 Rx budesonide-formoterol [Symbicort] 2 puff INHALATION BID 02/20/21 04/19/21 History latanoprost 1 drp EACH EYE HS 02/20/21 04/19/21 History spironolactone 25 mg PO DAILY 04/19/21 04/19/21 History Allergies Allergy/AdvReac Type Severity Reaction Status Date / Time [id number] Reductase AdvReac Wheezing Verified 04/30/21 11:44 Inhibitor Vital Signs Vital Signs - 24 hr 04/30/21 11:45 Temperature 97 F L Pulse Rate 77 Respiratory Rate 18 Blood Pressure 158/84 H Pulse Oximetry 98 Exam Const: General: comfortable and no acute distress HENMT: General nose exam: Normal nares present Eyes: General: appearance normal, both eyes and all related structures Neck: Neck: no JVD Resp: Auscultation: clear to auscultation bilaterally Cardio: Rate: regular rate Rhythm: regular rhythm GI: Inspection: non-distended GI Palp: Yes Soft to palpation Skin: General skin exam: normal color Neuro: General: gait normal Speech: normal speech Extrem
--- NOTE | 2021-04-30 13:01 | SUR.OPER ---
EGD ended at 1256. Colonoscopy started at 1301.
[2021-04-30 13:15] VITALS: BP 100/62; PULSE 73; RESP 21; O2SAT 96
[2021-04-30 13:25] VITALS: BP 105/65; PULSE 74; RESP 18; O2SAT 97
[2021-04-30 13:35] VITALS: BP 149/92; PULSE 72; RESP 20; O2SAT 98
== END 2021-04-30 13:45 | disposition home or self-care (01) ==
PROVIDERS: PCP Emergency Medicine; Visit Provider Internal Medicine Gastroenterology
PROC: 0DJ08ZZ Inspection of Upper Intestinal Tract, Via Natural or Artificial Opening Endoscopic (ICD-10-PCS; CPT 43235; principal; 2021-04-30 13:00)
DX: Z12.11 Encounter for screening for malignant neoplasm of colon (principal); K29.60 Other gastritis without bleeding; K63.5 Polyp of colon; K44.9 Diaphragmatic hernia without obstruction or gangrene; I10 Essential (primary) hypertension; Z79.51 Long term (current) use of inhaled steroids; E66.9 Obesity, unspecified; Z68.35 Body mass index [BMI] 35.0-35.9, adult
CPT/HCPCS: 45385; 43239; 88305; 88342; J0290; J1580; J2704; J7120

== ENCOUNTER 2021-06-22 03:50 | Emergency (ER) | payer OTHER, SELFPAY ==
[2021-06-22] VITALS (43 sets, daily range): BP systolic 129–159; BP diastolic 74–105; PULSE 59–80; RESP 13–20; TEMP 36.6; O2SAT 96–100
--- NOTE | ~2021-06-22 | XR_ITS ---
EXAMINATION: XR chest 2V DATE: 06/22/2021 04:26 INDICATION: Abdominal pain TECHNIQUE: PA and lateral views of the chest were obtained. COMPARISON: Chest radiograph dated 02/19/2021 FINDINGS: Unchanged elevation the left hemidiaphragm. Lungs are clear with no focal airspace opacities, pulmona ry edema, pleural effusion or pneumothorax. The cardiomediastinal silhouette is normal. Postoperative change of median sternotomy and endoluminal stent in the aortic arch. Mild to moderate thoracic spon dylosis with chronic mild anterior wedging of a couple lower thoracic vertebral bodies. IMPRESSION: 1. No acute cardiopulmonary disease with chronic mild elevation of the left hemidiaphragm. Reviewed, dictated and finalized at location A. IMPRESSION: 1. No acute cardiopulmonary disease with chronic mild elevation of the left hem idiaphragm.
--- NOTE | ~2021-06-22 | CT_ITS ---
EXAMINATION: CTA chest abdomen pelvis DATE: 06/22/2021 05:21 INDICATION: Thoracic and abdominal aortic aneurysm presenting with back pain TECHNIQUE: Computed tomographic angiography (CTA) of the chest, abdomen and pelvis was performed with 100 cc of Omnipaque-350 intravenous contrast. Additional 3D reconstructions utilizing rotating maxim um intensity projection (MIP) were performed. Automated exposure control and iterative reconstruction technique were employed. The dose-length product was 1804.12 mGy-cm. COMPARISON: CT dated 12/25/2020 FINDINGS: Chest: Indeterminate 2.2 x 2.1 cm nodule in the paravertebral right lower lobe. Volume loss and dependent gr oundglass opacities in the bilateral lower lobes consistent with mild atelectasis. No pleural effusio n or pneumothorax. Mild cardiomegaly. No pericardial effusion. Postoperative change of prior median s ternotomy. Endoluminal stenting of a fusiform aneurysm of the proximal descending thoracic aorta with the stent originating immediately following the takeoff of the left subclavian artery and extends di stally to the mid thoracic aorta at the level of the aortic valve plane. The aneurysm measures up to 4.4 x 3.9 cm. There is small amount of contrast along the anteromedial aspect of the aneurysm sac con sistent with endoleak which appears to arise from a few small likely bronchial arteries. The more dis stacia thoracic aorta is tortuous measuring 3.4 cm diameter at the caudal aspect of the stent and taperi ng to 3 cm in diameter at the thoracic hiatus. Mild right hilar and mediastinal lymphadenopathy which could be reactive or metastatic. Mild thoracic spondylosis. Unfused T11 spinous process. Abdomen and pelvis: There is ectasia of the abdominal aorta measuring up to 3.7 cm in maximal diameter above the level o f the celiac axis and tapers to 3.5 cm in maximal diameter at the bifurcation. Stents are abdominal a ortic dissection which extends from the level of the thoracic hiatus into the proximal most right com mon iliac artery. The more densely opacified true lumen supplies the superior and inferior mesenteric arteries, the bilateral renal arteries and the left common iliac artery. Celiac axis appears to be s upplied either primarily or exclusively by the true lumen. Unclear whether there is a fenestration be tween the true and false lumens at the origin of the celiac axis. More distally there is more obvious communication between the true and false lumen in the proximal right common iliac artery. Liver, gallbladder, spleen, pancreas, bilateral adrenal glands and kidneys are normal. Bowels includi ng the appendix are normal. Bladder is normal. Prostatomegaly. No free intraperitoneal gas or fluid. No pathologically enlarged abdominal or pelvic lymphadenopathy. Lumbar facet osteoarthritis, moderate on the right at L5-S1 and otherwise mild. IMPRESSION: 1. 0.4 cm fusiform aneurysm of the distal aortic arch with endoluminal stenting with small endoleak l ikely arising from a few bronchial arteries. 2. Ectatic abdominal aorta measuring up to 3.7 cm with dissection as detailed above.. 3. 2.2 x 2.1 cm spiculated right lower lobe nodule raising concern for primary bronchogenic carcinoma . The location and infrahilar region along the caudal margin of the inferior right pulmonary vein wou ld be challenging for percutaneous biopsy and would consider initial assessment with PET/CT. Dr. Elma johnson discussed these findings with Dr. Dodd at 3:02 PM. 4. Mild right hilar and mediastinal lymphadenopathy which could be reactive or metastatic. Reviewed, dictated and finalized at location A. IMPRESSION: 1. 0.4 cm fusiform aneurysm of the distal aortic arch with endoluminal stenting with small endoleak likely arising from a few bronchial
--- NOTE | 2021-06-22 03:56 | ECG_ITS ---
Measurements Intervals [place] Rate: 75 P: 49 MO: 265 QRS: -4 QRSD: 97 T: 165 QT: 368 QTc: 414 Interpretive Statements SINUS RHYTHM WITH FIRST DEGREE AV BLOCK POSSIBLE LEFT ATRIAL ENLARGEMENT [-0.1mV P WAVE IN V1/V2] LEFT VENTRICULAR HYPERTROPHY AND ST-T CHANGE [VOLTAGE CRITERIA PLUS ST/T ABNORMALITY] COMPARED TO ECG 02/19/2021 22:10:45 NO SIGNIFICANT CHANGES Electronically Signed On 06-22-2021 11:26:04 CDT by Harley Swann M.D.
[2021-06-22 04:20] LABS: Basophils Absolute Auto 0.1 K/mm3 (0.0-0.1); Basophils Percent Auto 0.7 % (0.2-1.2); Eosinophils Percent Auto 13.9 % (0-4.4); Hematocrit 40.2 % (42.0-52.0); Immature Granulocyte Absolute 0.02 K/mm3 (0.00-0.031); Immature Granulocyte Percent A 0.3 % (0-0.5); Lymphocytes Absolute Auto 1.91 K/mm3 (0.9-3.2); Lymphocytes Percent Auto 26.6 % (18.3-44.2); Mean Corpuscular HGB Conc 32.3 g/dl (32-36); Mean Corpuscular Hemoglobin 30.8 pg (26-34); Mean Corpuscular Volume 95.3 fl (80-100); Mean Platelet Volume 11.6 fl (7.4-10.4); Monocytes Absolute Auto 0.7 K/mm3 (0.1-0.6); Monocytes Percent Auto 9.9 % (2.6-8.5); Neutrophils Absolute Auto 3.5 K/mm3 (1.3-6.7); Neutrophils Percent Auto 48.6 % (45.5-73.1); Platelet Count Result 145 k/mm3 (150-375); Red Blood Count 4.22 M/mm3 (4.6-6.20); Red Cell Distribution Width 13.7 % (11.5-14.5); White Blood Count 7.2 K/mm3 (4.5-10.0)
[2021-06-22 04:24] LABS: Add Urine Microscopic? NO; Appearance Urine Clear (Clear); Bilirubin Urine Negative (Negative); Blood Urine Negative (Negative); Color Urine Colorless (Yellow); Glucose Urine UA Negative (Negative); Ketones Urine Negative (Negative); Leukocyte Esterase Ur Negative LEU/UL (Negative); Nitrate Urine Negative (Negative); Protein Urine Negative (Negative); RBC Urine 0-2 /hpf (0-2); Specific Grav Ur 1.005 (1.001-1.035); Squamous Epithelial Cell Urine Rare /hpf (Few); Urobilinogen Urine Negative mg/dL (<2.0); WBC Urine 0-3 /hpf
[2021-06-22 04:34] LABS: Alanine Aminotransferase 33 U/L (4-50); Albumin Level 4.5 g/dL (3.5-5.1); Alkaline Phosphatase 59 U/L (38-126); Anion Gap 7 mmol/L (8-16); Aspartate Amino Transferase 30 U/L (17-59); Bilirubin,Total 0.3 mg/dL (0.2-1.3); Blood Urea Nitrogen 26 mg/dL (9-20); Calcium 9.1 mg/dL (8.4-10.2); Carbon Dioxide 28 mmol/L (22-30); Chloride 104 mmol/L (98-107); Estimated CRCL calculation 70 ml/min; Estimated Glomerular Filt Rate > 60; Glucose 114 mg/dL (65-110); Lipase 146 U/L (23-300); Potassium 3.7 mmol/L (3.4-5.0); Sodium 139 mmol/L (137-145)
[2021-06-22 04:41] LABS: Troponin I < 0.012 ng/mL (0.000-0.034)
[2021-06-22] MEDS: MORPHINE SULFATE (*CRX) 2 MG/ML INJ IV PUSH (04:49)
--- NOTE | 2021-06-22 05:05 | ED.BACK ---
HPI - Back Pain/Injury General Chief Complaint: Back Pain/Injury <Freddie Car MD - Last Filed: 06/22/21 07:41> Stated Complaint: Back Pain <Freddie Car MD - Last Filed: 06/22/21 07:41> Time Seen by Provider: 06/22/21 04:51 <Freddie Car MD - Last Filed: 06/22/21 07:41> Source: patient <Freddie Car MD - Last Filed: 06/22/21 07:41> Mode of arrival: ambulatory <Freddie Car MD - Last Filed: 06/22/21 07:41> Limitations: no limitations <Freddie Car MD - Last Filed: 06/22/21 07:41> History of Present Illness HPI Narrative: Patient is a 60-year-old male complaining of mid back pain, 6 out of 10, dull, nonradiating started this morning. Patient denies any chest pain, shortness of breath, abdominal pain, nausea, vomiting, diaphoresis, fever or chills. Patient states that he has a history of thoracic and abdominal aortic aneurysm with dissection, the thoracic was repaired but the lower dissection was not since it was stable and being monitored by his cardiothoracic surgeon at [facility]. states that he recently had a CT scan of his chest and abdomen pelvis in March when he went for check up with his surgeon at [facility], and was told everything was good . <Freddie Car MD - Last Filed: 06/22/21 07:41> Related Data Home Medications: Home Medications Medication Instructions Recorded Confirmed carvedilol 25 mg PO BID 02/19/20 04/19/21 montelukast 10 mg PO HS 02/19/20 04/19/21 nifedipine 60 mg PO DAILY 05/14/20 04/19/21 pantoprazole 40 mg PO DAILY 12/25/20 04/19/21 budesonide-formoterol [Symbicort] 2 puff INHALATION BID 02/20/21 04/19/21 latanoprost 1 drp EACH EYE HS 02/20/21 04/19/21 spironolactone 25 mg PO DAILY 04/19/21 04/19/21 <Freddie Car MD - Last Filed: 06/22/21 07:41> Allergies/Adverse Reactions: Allergies Allergy/AdvReac Type Severity Reaction Status Date / Time Uiucoce-RCF-OlA Reductase AdvReac Wheezing Verified 04/30/21 11:44 Inhibitor <Freddie Car MD - Last Filed: 06/22/21 07:41> Review of Systems Review of Systems: All systems reviewed & are unremarkable except as noted in HPI and below <Freddie Car MD - Last Filed: 06/22/21 07:41> Constitutional: Constitutional: Denies body ache(s), Denies chills, Denies excessive sweating, Denies fatigue, Denies fever(s), Denies headache(s), Denies lethargy, Denies malaise, Denies weakness and Denies weight loss <Freddie Car MD - Last Filed: 06/22/21 07:41> Eyes: Eyes: Denies blurry vision, Denies change in vision and Denies loss of vision <Freddie Car MD - Last Filed: 06/22/21 07:41> ENT: Denies dizziness, Denies ear discharge, Denies headache(s), Denies lip swelling, Denies epistaxis, Denies nasal congestion, Denies neck pain, Denies throat swelling and Denies tongue swelling <Freddie Car MD - Last Filed: 06/22/21 07:41> Cardiovascular: Cardiovascular: Denies chest pain, Denies chest pain at rest, Denies chest pain with activity, Denies diaphoresis, Denies rapid heart rate, Denies edema, Denies irregular heart rhythm, Denies lightheadedness, Denies palpitations, Denies dyspnea and Denies dyspnea on exertion <Freddie Car MD - Last Filed: 06/22/21 07:41> Respiratory: Respiratory: Denies chest congestion, Denies cough, Denies hemoptysis, Denies dyspnea and Denies dyspnea on exertion <Freddie Car MD - Last Filed: 06/22/21 07:41> Gastrointestinal: Gastrointestinal: Denies abdominal pain, Denies melena, Denies hematochezia, Denies diarrhea, Denies nausea, Denies vomiting and Denies hematemesis <Freddie Car MD - Last Filed: 06/22/21 07:41> Musculoskeletal: Musculoskeletal: Denies abnormal gait, Denies deformity, Denies joint swelling, Denies limited range of motion, Denies neck pain and Denies numbness <Freddie Car MD - Last Filed: 06/22/21 07:41> Neurologic: Denies Abnormal speech present, D
[2021-06-22] MEDS: LACTATED RINGERS 1,000 ML 200 ML IV CONT (05:23)
[2021-06-22 07:42] LABS: Troponin I < 0.012 ng/mL (0.000-0.034)
--- NOTE | 2021-06-22 08:08 | PC.NURSE ---
at bedside to discuss results and treatment plan with pt.
--- NOTE | 2021-06-22 08:58 | PC.NURSE ---
Pt resting in chair. Awaiting call back from surgeon at [facility].
--- NOTE | 2021-06-22 09:05 | PC.NURSE ---
Pt's targeting acquisition officer light requesting to speak to ERP again. Dr. Alvarez made aware. updated that second page has been sent to surgeon at [facility] and we are still waiting for call back for further update.
--- NOTE | 2021-06-22 10:18 | PC.NURSE ---
Report given to Debbie at [facility] in [place]. Awaiting discharges for bed availability. Pt requesting home meds and food. Dr. Alvarez made aware and okay with ordering meds and food.
[2021-06-22] MEDS: ASPIRIN 81 MG CHEWABLE TABLET PO (10:40)
[2021-06-22] MEDS: carvediloL 25 MG TABLET PO (10:40)
[2021-06-22] MEDS: NIFEdipine 30 MG TAB.ER.24 60 MG PO (10:40)
[2021-06-22 10:57] LABS: SARS-CoV-2 RNA PCR Negative
--- NOTE | 2021-06-22 11:11 | PC.NURSE ---
nagélica faxed to [facility].
--- NOTE | 2021-06-22 11:22 | PC.NURSE ---
Report given to DEMETRIUS Rodriguez at [facility] in [place]. Room number 1276. Number for report is [phone]
--- NOTE | 2021-06-22 11:41 | PC.NURSE ---
[facility] gives 2hr ETA. Pt given lunch tray.
--- NOTE | 2021-06-22 11:42 | PC.NURSE ---
[facility] accepted transfer to [place] [id number]
--- NOTE | 2021-06-22 13:23 | PC.NURSE ---
Pt resting on stretcher. Awaiting [facility] arrival for transport to [facility].
--- NOTE | 2021-06-22 15:18 | PC.NURSE ---
Called and spoke with Michael at [facility] and made aware of lung nodule suspicious for lung CA.
== END 2021-06-22 13:46 | disposition short-term general hospital (02) ==
PROVIDERS: Emergency Medicine; Emergency Provider Emergency Medicine; PCP Emergency Medicine
DX: I71.02 Dissection of abdominal aorta (principal); Z20.822 Contact with and (suspected) exposure to COVID-19; K21.9 Gastro-esophageal reflux disease without esophagitis; I10 Essential (primary) hypertension; H40.9 Unspecified glaucoma; I44.0 Atrioventricular block, first degree; R94.31 Abnormal electrocardiogram [ECG] [EKG]; I51.7 Cardiomegaly
CPT/HCPCS: 36415; 71046; 71275; 74174; 80053; 81003; 83690; 84484; 85025; 93005; 96361; 96374; 99285; A9270; C9803; J2270; J7120; Q9967; U0003; U0005

== ENCOUNTER 2022-02-15 18:47 | Emergency (ER) | payer OTHER, SELFPAY ==
--- NOTE | ~2022-02-15 | XR_ITS ---
EXAMINATION: XR chest 2V DATE: 02/15/2022 19:49 INDICATION: Cough and shortness of breath TECHNIQUE: PA and lateral views of the chest were obtained. COMPARISON: Chest radiograph dated 06/22/21 FINDINGS: Unchanged mild elevation of the left hemidiaphragm. Patchy airspace opacities in the right lower and left mid to lower lung zones. No pleural effusion or pneumothorax. Heart size is normal. Median smallwood otomy wires and mediastinal surgical clips are seen, likely from prior coronary artery bypass graftin g. There is also endoluminal stenting at the distal aortic arch and proximal descending thoracic aort a. IMPRESSION: 1. Patchy airspace opacities in the right lower and left mid and lower lung zones most likely pneumon ia versus less likely atelectasis or pulmonary edema. Reviewed, dictated and finalized at location A. GE MECHANIC IMPRESSION: 1. Patchy airspace opacities in the right lower and left mid and lower lung zon es most likely pneumonia versus less likely atelectasis or pulmonary edema.
[2022-02-15 18:57] VITALS: BP 136/71; PULSE 93; RESP 16; TEMP 36.4; O2SAT 97
--- NOTE | 2022-02-15 19:34 | ED.SOB ---
HPI - SOB/Dyspnea General Chief Complaint: Shortness of Breath/Dyspnea Stated Complaint: sob Time Seen by Provider: 02/15/22 19:20 History of Present Illness HPI Narrative: Patient is a 61-year-old male with a history of asthma, hypertension, status post AAA repair presenting with cough and shortness of breath. Patient states that he has had a cough for the last 2 weeks. States that whenever he has a coughing fit he often feels short of breath afterwards. States that he has been using cough medicine at home with minimal relief. States that he feels wheezy and he has used his rescue inhaler twice today without relief. He denies fevers, chest pain, lightheadedness, abdominal pain, nausea or vomiting, diarrhea, leg swelling. Patient is vaccinated for COVID but not flu. Related Data Home Medications Medication Instructions Recorded Confirmed carvedilol 25 mg tablet 25 mg PO BID 02/19/20 08/15/21 montelukast 10 mg tablet 10 mg PO HS 02/19/20 08/15/21 nifedipine 60 mg tablet,extended 60 mg PO DAILY 05/14/20 08/15/21 release 24 hr pantoprazole 40 mg tablet,delayed 40 mg PO DAILY 12/25/20 08/15/21 release budesonide-formoterol HFA 160 2 puff inhalation BID 02/20/21 08/15/21 mcg-4.5 mcg/actuation aerosol inhaler (Symbicort) latanoprost 0.005 % eye drops 1 drp EACH EYE HS 02/20/21 08/15/21 spironolactone 25 mg tablet 25 mg PO DAILY 04/19/21 08/15/21 Allergies Allergy/AdvReac Type Severity Reaction Status Date / Time [id number]-[id number] Reductase AdvReac Wheezing Verified 02/15/22 18:47 Inhibitor Review of Systems Review of Systems: All systems reviewed & are unremarkable except as noted in HPI and below PMFSH Past Medical History Medical History Acute kidney injury Close exposure to 2019-nCoV Colon cancer screening GERD (gastroesophageal reflux disease) Glaucoma HTN (hypertension), malignant Hypertension Surgical History Surgical History S/P AAA repair Family History Family History Mother Hypertension Sibling Hypertension Son Diabetes mellitus Type 1 Social History Social History Social History: The patient lives with his and has 2 children a son and a daughter. The patient does not currently work. The patient is lifelong nonsmoker does not drink alcohol or use illicit drugs. 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 Code status full code Smoking status: Never smoker Second hand tobacco smoke exposure: Yes Alcohol intake: never Substance use: never Substance use type: does not use Spiritual care concerns: No Exam Narrative: GENERAL: Well-appearing, well-nourished, and in no acute distress. HEAD: Normocephalic, atraumatic. EYES: PERRLA and EOMI. ENT: Nares clear, no rhinorrhea or epistaxis. Mucous membranes moist. NECK: Supple. CHEST: Clear to auscultation. No respiratory distress. HEART: Regular rate and rhythm. No murmur heard. Normal peripheral pulses. ABDOMEN: Soft, nontender, nondistended, normal active bowel sounds. EXTREMITIES: Normal range of motion. No edema. SKIN: Warm, dry, no rash. NEURO: No focal deficits. Alert and oriented x3. PSYCH: Normal mood and affect. Course Vital Signs Vital signs: Vital Signs Temperature 97.6 F 02/15/22 18:57 Pulse Rate 93 02/15/22 18:57 Respiratory Rate 16 02/15/22 18:57 Blood Pressure 136/71 02/15/22 18:57 Pulse Oximetry 97 02/15/22 18:57 Oxygen Delivery Room Air 02/15/22 18:57 Temperature 97.6 F 02/15/22 18:57 Pulse Rate 82 02/15/22 21:17 Respiratory Rate 20 02/15/22 21:17 Blood Pressure 127/79 02/15/22 21:17 Pulse Oximetry 94 02/15/22 21:17 Oxygen Delivery Room Air 02/15/22 19:59 MDM - SOB/Dyspnea MDM Narrative Me
[2022-02-15] MEDS: BENZONATATE 100 MG CAPSULE PO (19:46)
[2022-02-15] MEDS: IPRATROPIUM BR 0.02% INH SOLN 0.5 MG/2.5 ML VIAL INHALATION (19:53)
[2022-02-15] MEDS: ALBUTEROL SULFATE NEB 2.5 MG/3 ML INH 5 MG INHALATION (19:53)
[2022-02-15 19:54] VITALS: PULSE 95; RESP 22
[2022-02-15 19:59] VITALS: O2SAT 95
[2022-02-15 20:11] VITALS: PULSE 99; RESP 18
[2022-02-15 20:23] LABS: Influenza A QL RT-PCR Negative (Negative); Influenza B QL RT-PCR Negative (Negative); RSV RNA, RT-PCR Negative (Negative); SARS-CoV-2 RNA PCR Negative
[2022-02-15] MEDS: AMOXICILLIN/CLAVULANATE K 875-125 MG TAB 1 TABLET PO (20:52)
[2022-02-15] MEDS: DOXYCYCLINE HYCLATE 100 MG TABLET PO (20:53)
[2022-02-15] MEDS: predniSONE 40 MG, predniSONE 10 MG 50 MG PO (21:16)
[2022-02-15 21:17] VITALS: BP 127/79; PULSE 82; RESP 20; O2SAT 94
== END 2022-02-15 21:25 | disposition home or self-care (01) ==
PROVIDERS: Emergency Provider Emergency Medicine; PCP Emergency Medicine
DX: J18.9 Pneumonia, unspecified organism (principal); J45.901 Unspecified asthma with (acute) exacerbation; Z20.822 Contact with and (suspected) exposure to COVID-19; I10 Essential (primary) hypertension; K21.9 Gastro-esophageal reflux disease without esophagitis; H40.9 Unspecified glaucoma
CPT/HCPCS: 71046; 87637; 94640; 99283; A9270; J7512

== ENCOUNTER 2022-07-11 23:35 | Emergency (ER) | payer OTHER, SELFPAY ==
--- NOTE | ~2022-07-11 | XR_ITS ---
XR chest 1V portable 07/12/2022 00:40 Indication: Nausea, vomiting and fever. Procedure: AP portable chest Comparison: Comparison to multiple prior studies sequentially, with oldest reviewed study dated 12/01. Findings: Stable cardiomediastinal silhouette. There is an endovascular stent involving the aortic ar ch and descending thoracic aorta. Status post median sternotomy. No focal air space disease, pulmonar y edema, pleural effusion or suspected pneumothorax. Impression: 1: No acute cardiopulmonary disease. Reviewed, dictated and finalized at location A. Impression: 1: No acute cardiopulmonary disease.
[2022-07-11 23:50] VITALS: BP 175/98; PULSE 81; RESP 16; TEMP 36.6; O2SAT 96
[2022-07-11 23:59] VITALS: BP 144/87; PULSE 79; RESP 20; TEMP 36.6; O2SAT 100
[2022-07-12] VITALS (14 sets, daily range): BP systolic 130–160; BP diastolic 80–107; PULSE 69–75; RESP 14–20; O2SAT 96–100
--- NOTE | 2022-07-12 00:01 | ECG_ITS ---
Measurements Intervals [place] Rate: 76 P: 44 [place]: 222 QRS: -15 QRSD: 97 T: 155 QT: 354 QTc: 400 Interpretive Statements SINUS RHYTHM WITH FIRST DEGREE AV BLOCK LEFT VENTRICULAR HYPERTROPHY AND ST-T CHANGE ST-T WAVE ABNORMALITY IN ANTEROLATERAL LEADS- CONSIDER ISCHEMIA BASELINE ARTIFACT- II, AVR ABNORMAL ECG COMPARED TO ECG 06/22/2021 04:00:39 NO SIGNIFICANT CHANGES Electronically Signed On 07-12-2022 6:14:20 CDT by Sandeep Hunter D.O.
--- NOTE | 2022-07-12 00:57 | ED.NAVMDI ---
HPI - Nausea/Vomiting/Diarrhea General Chief complaint: Nausea/Vomiting/Diarrhea <Janna Meyer PA-C - Last Filed: 07/12/22 03:46> Stated complaint: Nausea/vomiting/fever <Janna Meyer PA-C - Last Filed: 07/12/22 03:46> Time Seen by Provider: 07/12/22 00:37 <Janna Meyer PA-C - Last Filed: 07/12/22 03:46> History of Present Illness HPI Narrative: 61-year-old male with history of CKD, asthma, s/p AAA repair, hypertension reports for evaluation of a sore throat x2 weeks and fatigue, subjective fever, 2 episodes of vomiting that started today. Patient is accompanied by his 2 children with his on FaceTime who assist with history. Family and patient report his throat feels like he is swallowing razor blades and that he had a headache earlier today after vomiting. Pt reports headache has since resolved. He endorses an intermittent cough and shortness of breath that is unchanged from his baseline. He denies urinary complaints, abdominal pain, back pain, chest pain, low numbness or weakness, vision changes, neck pain. Last bowel movement was today and normal. Patient reports he has not taken his nighttime carvedilol and is requesting a dose. <Janna Meyer PA-C - Last Filed: 07/12/22 03:46> Related Data Home medications: Home Medications Medication Instructions Recorded Confirmed carvedilol 25 mg tablet 25 mg PO BID 02/19/20 08/15/21 montelukast 10 mg tablet 10 mg PO HS 02/19/20 08/15/21 nifedipine 60 mg tablet,extended 60 mg PO DAILY 05/14/20 08/15/21 release 24 hr pantoprazole 40 mg tablet,delayed 40 mg PO DAILY 12/25/20 08/15/21 release budesonide-formoterol HFA 160 2 puff inhalation BID 02/20/21 08/15/21 mcg-4.5 mcg/actuation aerosol inhaler (Symbicort) latanoprost 0.005 % eye drops 1 drp EACH EYE HS 02/20/21 08/15/21 spironolactone 25 mg tablet 25 mg PO DAILY 04/19/21 08/15/21 <Janna Meyer PA-C - Last Filed: 07/12/22 03:46> Allergies/Adverse reactions: Allergies Allergy/AdvReac Type Severity Reaction Status Date / Time Fvnqoai-XEQ-EjU Reductase AdvReac Wheezing Verified 07/12/22 00:06 Inhibitor <Janna Meyer PA-C - Last Filed: 07/12/22 03:46> Review of Systems Review of Systems: CONSTITUTIONAL: Denies fever, chills EYES: Denies visual changes, redness, or discharge. ENT: See HPI CARDIOVASCULAR: Denies chest pain, palpitations, or edema. RESPIRATORY: See HPI GASTROINTESTINAL: Denies abdominal pain, nausea, vomiting, or diarrhea. GENITOURINARY: Denies dysuria or hematuria. SKIN: Denies rash or itching. MUSCULOSKELETAL: Denies back pain, joint pain, or myalgia. NEUROLOGIC: Denies numbness, dizziness, or weakness. PSYCHIATRIC: Denies anxiety or depression. <Janna Meyer PA-C - Last Filed: 07/12/22 03:46> [facility] Past Medical History Medical History: Medical History Acute kidney injury Close exposure to 2019-nCoV Colon cancer screening GERD (gastroesophageal reflux disease) Glaucoma HTN (hypertension), malignant Hypertension <Janna Meyer PA-C - Last Filed: 07/12/22 03:46> Surgical History Surgical History: Surgical History S/P AAA repair <Janna Meyer PA-C - Last Filed: 07/12/22 03:46> Family History Family History: Family History Mother Hypertension Sibling Hypertension Son Diabetes mellitus Type 1 <Janna Meyer PA-C - Last Filed: 07/12/22 03:46> Social History Social History: Social History Social History: The patient lives with his and has 2 children a son and a daughter. The patient does not currently work. The patient is lifelong nonsmoker does not drink alcohol or use illicit drugs. The is the durable power attorn
[2022-07-12 01:06] LABS: Strep Group A RT-PCR NOT DETECTED (Negative)
[2022-07-12 01:17] LABS: Influenza A QL RT-PCR Negative (Negative); Influenza B QL RT-PCR Negative (Negative); RSV RNA, RT-PCR Negative (Negative); SARS-CoV-2 RNA PCR Negative (Negative)
[2022-07-12] MEDS: ACETAMINOPHEN 500 MG TABLET 1000 MG PO (01:26)
[2022-07-12] MEDS: IPRATROPIUM BR 0.02% INH SOLN 0.5 MG/2.5 ML VIAL INHALATION (01:35)
[2022-07-12] MEDS: LEVALBUTEROL NEB 1.25 MG/3 ML INHALATION (01:36)
[2022-07-12] MEDS: SODIUM CHLORIDE 0.9% IV 1,000 ML 999 ML IV CONT (01:47)
[2022-07-12 01:50] LABS: Basophils Percent Auto 0.2 % (0.2-1.2); Hemoglobin 14.3 g/dL (14.0-18.0); Immature Granulocyte Absolute 0.01 K/mm3 (0.00-0.031); Immature Granulocyte Percent A 0.1 % (0-0.5); Lymphocytes Absolute Auto 1.51 K/mm3 (0.9-3.2); Lymphocytes Percent Auto 17.8 % (18.3-44.2); Mean Corpuscular HGB Conc 33.3 g/dl (32-36); Mean Corpuscular Hemoglobin 30.6 pg (26-34); Mean Corpuscular Volume 92.1 fl (80-100); Mean Platelet Volume 11.7 fl (7.4-10.4); Monocytes Absolute Auto 0.8 K/mm3 (0.1-0.6); Monocytes Percent Auto 9.2 % (2.6-8.5); Neutrophils Absolute Auto 6.2 K/mm3 (1.3-6.7); Neutrophils Percent Auto 72.7 % (45.5-73.1); Platelet Count Result 161 k/mm3 (150-375); Red Blood Count 4.67 M/mm3 (4.6-6.20); White Blood Count 8.5 K/mm3 (4.5-10.0)
[2022-07-12] MEDS: carvediloL 25 MG TABLET PO (02:23)
[2022-07-12 02:33] LABS: Anion Gap 5 mmol/L (8-16); Blood Urea Nitrogen 23 mg/dL (9-20); Carbon Dioxide 27 mmol/L (22-30); Chloride 105 mmol/L (98-107); Estimated CRCL calculation 88 ml/min; Estimated Glomerular Filt Rate > 60; Glucose 147 mg/dL (65-110); Potassium 3.4 mmol/L (3.4-5.0); Sodium 137 mmol/L (137-145)
--- NOTE | 2022-07-12 03:17 | PC.NURSE ---
Patient states he feels much better. EPR notified.
== END 2022-07-12 03:58 | disposition home or self-care (01) ==
PROVIDERS: Emergency Medicine; Emergency Provider Physician Assistant; PCP Emergency Medicine
DX: J06.9 Acute upper respiratory infection, unspecified (principal); J02.9 Acute pharyngitis, unspecified; Z20.822 Contact with and (suspected) exposure to COVID-19; I12.9 Hypertensive chronic kidney disease with stage 1 through stage 4 chronic kidney disease, or unspecified chronic kidney disease; N18.9 Chronic kidney disease, unspecified; J45.909 Unspecified asthma, uncomplicated; K21.9 Gastro-esophageal reflux disease without esophagitis; H40.9 Unspecified glaucoma; R94.31 Abnormal electrocardiogram [ECG] [EKG]; I51.7 Cardiomegaly
CPT/HCPCS: 36415; 71045; 80048; 85025; 87637; 87651; 93005; 94640; 96360; 99284; A9270; J7030

== ENCOUNTER 2022-10-23 08:31 | Outpatient (CLI) | payer OTHER, SELFPAY ==
[2022-10-15 09:08] LABS: Estimated Glomerular Filt Rate 54
--- NOTE | ~2022-10-23 | CT_ITS ---
EXAMINATION: CTA chest abdomen pelvis DATE: 10/23/2022 09:17 INDICATION: Dissection of the thoracoabdominal aorta TECHNIQUE: Computed tomographic angiography (CTA) of the chest, abdomen, and pelvis was performed wit h 100 mL Omnipque-350 intravenous contrast. Maximum intensity projection 3D-reconstructions of the ao rta and other arteries were constructed by the technologist on a separate workstation. The dose-lengt h product (DLP) was 2002.40 mGy-cm. Automated exposure control and iterative reconstruction technique were employed. COMPARISON: 10/15/2022, 06/22/2021 FINDINGS: CHEST CTA: There is a fusiform aneurysm of the proximal descending thoracic aorta status post stent graft repair without significant change in size. Again seen is a small area of contrast enhancement in the aneury sm sac medial to the stent graft, likely related to a small bronchial artery. There is decrease in th e amount of contrast in the aneurysm sac, particularly at the caudal aspect of the endoleak. On the c urrent examination, the previously described paravertebral nodule of the right lower lobe appears to have slightly increased in size. No pleural effusion or pneumothorax. The heart size is normal. Media stinal and right hilar lymphadenopathy is stable. ABDOMEN AND PELVIS CTA: There is a stable dissection of the abdominal aorta from the aortic hiatus to the right common iliac artery. The superior mesenteric artery, inferior mesenteric artery, and bilateral renal arteries hyun e from the true lumen. The dissection passes through the origin of the celiac axis with areas of comm unication visualized with both true and false lumens. There is a fusiform aneurysm of the aorta measu ring 3.6 cm above the celiac axis and 3.5 cm in the distal aorta. The liver, spleen, pancreas, gallbl adder, and adrenal glands are normal. Cysts of the kidneys measure up to 1.5 cm on the left. The appe ndix is normal. No pathologically enlarged abdominal or pelvic lymph nodes are identified. No free in traperitoneal gas or evidence of bowel obstruction. IMPRESSION: 1. Thoracic aortic dissection status post stent graft repair with persistent, but improved type II en doleak. 2. Stable abdominal aortic dissection. 3. Indeterminant right lower lobe nodule. Consider further evaluation with PET/CT. 4. Right hilar and mediastinal lymphadenopathy, reactive versus metastatic. Reviewed, dictated and finalized at location A. IMPRESSION: 1. Thoracic aortic dissection status post stent graft repair with persistent, b ut improved type II endoleak. 2. Stable abdominal aortic dissection. 3. Indeterminant right lower lobe nodule. Consider further evaluation with PET/ CT. 4. Right hilar and mediastinal lymphadenopathy, reactive versus metastatic.
--- NOTE | ~2022-10-23 | CT_ITS ---
EXAMINATION: CT chest abdomen pelvis wo con DATE: 10/15/2022 09:58 INDICATION: Dissection of the thoracoabdominal aorta TECHNIQUE: Transaxial computed tomographic images of the chest, abdomen, and pelvis were obtained wit hout intravenous contrast. The dose-length product (DLP) was 1955.38 mGy-cm. Automated exposure contr ol and iterative reconstruction technique were employed. Of note, patient's IV infiltrated and patien t will return for postcontrast images. COMPARISON: 06/22/2021, 12/25/2020 FINDINGS: CHEST CT: There are changes of stent graft repair in the proximal descending thoracic aorta. The stent is again noted to originate just beyond the origin of the left subclavian artery. Overall size and configurat ion of the aneurysm are unchanged accounting for noncontrast technique. The aneurysm measures 4.2 cm in greatest dimension. There is a chronic paravertebral nodule in the medial aspect of the right lowe r lobe with slight decrease in size. There is mild dependent atelectasis of the lungs. No pleural eff usion or pneumothorax. There is mild bilateral gynecomastia. The heart size is normal. There is mild right lower paratracheal lymphadenopathy with slight improvement, likely reactive. ABDOMEN/PELVIS CT: There is fusiform enlargement of the abdominal aorta which measures up to 3.5 cm near the bifurcation . The previously described aortic dissection is not well evaluated on noncontrast examination and shamika l be better characterized with the patient returns for follow-up. The liver, spleen, pancreas, gallbl adder, and adrenal glands are normal. The kidneys are unremarkable. The appendix is normal. No pathol ogically enlarged abdominal or pelvic lymph nodes are identified. No free intraperitoneal gas or evid ence of bowel obstruction. IMPRESSION: 1. 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 2. Stable fusiform abdominal aortic aneurysm. 3. Right lower lobe nodule with slight decrease in size, likely benign. Reviewed, dictated and finalized at location B. IMPRESSION: 1. Fusiform aneurysm of the proximal descending thoracic aorta status post sten t graft repair and without significant change accounting for noncontrast techni que. 2. Stable fusiform abdominal aortic aneurysm. 3. Right lower lobe nodule with slight decrease in size, likely benign.
== END 2022-10-23 08:32 | disposition home or self-care (01) ==
PROVIDERS: PCP Emergency Medicine
DX: I71.03 Dissection of thoracoabdominal aorta (principal)
CPT/HCPCS: 71250; 71275; 74174; 74176; Q9967

== ENCOUNTER 2023-05-07 12:48 | Outpatient (CLI) | payer OTHER, SELFPAY ==
--- NOTE | ~2023-05-07 | CT_ITS ---
CT Scan of the Chest without Contrast: Clinical Indication: Lung nodule Technique: Contiguous sections were acquired throughout the chest without intravenous contrast. Dose reduction technique was used on this scan by utilizing automated exposure control and iterative recon struction technique. The dose-length product (DLP) was 321.49 mGy-cm. COMPARISON: 10/23/2022 Findings: There is no evidence of any significant mediastinal, hilar or axillary lymphadenopathy. Aortic stent graft present at the aortic arch and descending thoracic aorta.. There is no evidence of pleural or pericardial effusion. Stable nodular area of consolidation in the medial right lower lobe, felt to most likely represent ch ronic atelectasis. No other pulmonary abnormality evident. Images through the upper abdomen reveal no abnormalities. Impression: Stable nodular consolidation medial right lower lobe, felt to most likely represent chronic atelectas is. Reviewed, dictated and finalized at [facility]. ET CONTROLLER Impression: Stable nodular consolidation medial right lower lobe, felt to most likely repre sent chronic atelectasis.
== END 2023-05-07 12:49 | disposition home or self-care (01) ==
LOC: ANHIMG 12:53
PROVIDERS: PCP Emergency Medicine
DX: R91.1 Solitary pulmonary nodule (principal)
CPT/HCPCS: 71250

== ENCOUNTER 2023-09-25 15:55 | Outpatient (CLI) | payer OTHER, SELFPAY ==
--- NOTE | 2023-09-25 | ECHO_ITS ---
Patient Info Name: Chace Irvin Age: 62 years : 1960 Gender: Male Ht: 72 in Wt: 290 lbs BSA: 2.64 m2 HR: 79 bpm BP: 173 / 93 mmHg Heart Rhythm: Sinus Rhythm Technical Quality: Good Exam Date: 09/25/2023 4:17 PM Exam Location: Echo Lab Patient Status: Outpatient Admit Date: 09/25/2023 Staff Ordering Physician: Rosa Mcbride Web Marketing Coordinator: Cortney Simpson RDCS Attending Provider: MANJULA, JETHRO Referring Physician: TOYIN, Reed; Exam Type: CA echo doppler color flow Study Info Indications - DISSECTING AORTIC THORACIC ANEURYSM Complete two-dimensional, color flow and Doppler transthoracic echocardiogram is performed. Summary 1. Complete two-dimensional, color flow and Doppler transthoracic echocardiogram is performed. 2. Left ventricular hypertrophy with normal size and vigorous systolic contractility. 3. Normal appearing aortic valve with no AI. 4. Normal aortic root dimension( reported history of thoracic dissection). Left Ventricle Left ventricular chamber dimension is normal. Left ventricular systolic function is hyperdynamic, estimated at >70%. There is mild concentric increased left ventricular wall thickness. The left ventricular diastolic function is grade I diastolic dysfunction. Right Ventricle Right ventricular chamber dimension is normal. Left Atria Left atrial chamber dimension is mildly enlarged. Right Atria Right atrial chamber dimension is normal. Aortic Valve The aortic valve is normal. Pulmonic Valve The pulmonic valve is not well visualized. Mitral Valve The mitral valve has normal leaflets. Tricuspid Valve The tricuspid valve leaflets are normal. Pericardium/Pleural The pericardium appears normal. Aorta The aortic root size at the sinus of Valsalva is normal. Left Ventricular Outflow Tract Name Value Normal LVOT 2D LVOT Diameter 2.2 cm LVOT Doppler LVOT Peak Gradient 4 mmHg LVOT Mean Gradient 2 mmHg LVOT VTI 23 cm LVOT VTI/AV VTI Ratio 0.9 LVOT Stroke Volume 85 ml LVOT CO 4.4 l/min LVOT CI 1.7 l/min/m2 Pulmonic Valve Name Value Normal PV Doppler PV Peak Gradient 4 mmHg Mitral Valve Name Value Normal MV Doppler MV Decel [place] 213 cm/s2 MV PHT 76 ms MV Area (PHT) 2.9 cm2 4.0-5.0 MV Diastolic Function MV E Peak Velocity 56 cm
== END 2023-09-25 15:56 | disposition home or self-care (01) ==
LOC: ANHCARD 15:57
PROVIDERS: PCP Emergency Medicine
DX: I71.019 Dissection of thoracic aorta, unspecified (principal); I10 Essential (primary) hypertension; D64.9 Anemia, unspecified; E78.2 Mixed hyperlipidemia; E66.9 Obesity, unspecified; Z98.890 Other specified postprocedural states; Z86.79 Personal history of other diseases of the circulatory system
CPT/HCPCS: 93306

== ENCOUNTER 2024-06-23 17:00 | Outpatient (CLI) | payer OTHER, SELFPAY ==
--- NOTE | ~2024-06-23 | US_ITS ---
EXAM: RENAL ULTRASOUND HISTORY: I12.9 - Hypertensive chronic kidney disease with stage 1 ... COMPARISON: 12/25/2020 FINDINGS: RIGHT KIDNEY: 10.0 x 4.3 x 5.1 cm. No hydronephrosis or bulky renal calculi. A single rounded avascular anechoic focus is present within the lower pole of the right kidney measur ing 8.9 x 8.3 x 9.1 mm, consistent with a simple cyst for which no further follow-up is needed. LEFT KIDNEY: 11.3 x 6.1 x 5.9 cm No hydronephrosis or renal calculi. A single rounded avascular anechoic focus is present within the upper pole of the left kidney measuri ng 24 x 22 x 20 mm, consistent with a simple cyst for which no further follow-up is needed. BLADDER: The bladder is minimally distended, and otherwise unremarkable. Bilateral ureteral jets are identified. IMPRESSION: No hydronephrosis or renal calculi. Simple cysts within the bilateral kidneys, for which no further follow-up is needed Reviewed, dictated and finalized at location A. IMPRESSION: No hydronephrosis or renal calculi. Simple cysts within the bilateral kidneys, for which no further follow-up is ne eded
--- OUTSIDE RECORDS SUMMARY | 2024-06-23 17:28 | XMS_ITS ---
Author Organization [facility] [place] ([address]) Address [address] [place] [id number] Care Team Providers Care Pipeline Inspector Name Role Phone Srinivas Ba Primary Care Provider UnavailEddie Barrera Unavailable [phone] Sawyer Roach Unavailable Unavailable Derrell Neal Unavailable [phone] REASON FOR VISIT SCIT - Traditional Schedule Allergy Immunotherapy Medications Medication SIG (Take, Route, Frequency, Duration) Notes Start Date End Date Status Spiriva Respimat 1.25 MCG/ACT 2 puff(s) inhaled once a day for 30 day(s) Not-Taking Albuterol Sulfate HFA 108 (90 Base) MCG/ACT 2 puff as needed Inhalation every 4 hrs for 30 days 05/10/2024 Active Trelegy Ellipta 200-62.5-25 MCG/ACT 1 PUFF(S) INHALED ONCE A DAY for 30 days Active Trelegy Ellipta 200-62.5-25 MCG/ACT 1 puff Inhalation Once a day for 90 days 01/06/2024 Active ALVINA-D 24 HOUR ALLERGY AND CONGESTION 180 MG-240 MG 1 TAB(S) ORALLY ONCE A DAY *Please review for potential replacement for e-prescription and drug interaction check* Not-Taking OLOPATADINE NASAL 665 MCG/INH 2 SPRAY(S) INTRANASALLY 2 TIMES A DAY for 30 DAY(S) *Please review for potential replacement for e-prescription and drug interaction check* Not-Taking Montelukast Sodium 10 MG 1 tab(s) orally once a day for 30 day(s) Not-Taking Symbicort 160-4.5 MCG/ACT Not-Taking Famotidine 40 MG 1 tab(s) orally 30 mins prior to SCIT for 30 days 09/08/2022 Not-Taking SIT (TRADITIONAL) VARIABLE PER SCHEDULE SC PER SCHEDULE for TO BE DETERMINED *Please review for potential replacement for e-prescription and drug interaction check* Active Alvina Allergy 180 MG 1 tab(s) orally once a day Active Flonase Allergy Relief 50 MCG/ACT 2 spray(s) in each nostril bid for 30 day(s) Active Benralizumab 30 MG/ML DIRECTED SUBCUTANEOUSLY EVERY 8 WEEKS *Please review and pick correct strength-formula tion from Meal Mantra options. If intended option is not shown, discontinue and re-order from Quick Search* Active Montelukast Sodium 10 MG 1 tab(s) orally once a day for 90 days Active Auvi-Q 0.3 MG/0.3ML as directed intramuscularly once for 30 day(s) Active SPIRIVA RESPIMAT 1.25 mcg/inh 2 puff(s) inhaled once a day for 30 day(s) Not-Taking PROAIR HFA 90 MCG/INH 2 PUFF(S) INHALED EVERY 6 HOURS *Please review for potential replacement for e-prescription and drug interaction check* Active Carvedilol 25 MG Act kristin NIFEDIPINE (EQV-PROCARDIA XL) 60 MG *Please review for potential replacement for e-prescription and drug interaction check* Active Spironolactone 25 MG Active MONTELUKAST 10 mg 1 tab(s) orally once a day for 30 day(s) Not-Taking SYMBICORT 160 mcg-4.5 mcg/inh Not-Taking FAMOTIDINE 40 mg 1 tab(s) orally 30 mins prior to SCIT for 30 days 09/08/2022 Not-Taking AUVI-Q 0.3 mg as directed intramuscularly once for 30 day(s) Active ALVINA 24 HOUR ALLERGY 180 mg 1 tab(s) orally once a day Active BENRALIZUMAB 30 mg/mL as directed subcutaneously every 8 weeks Active TRELEGY ELLIPTA 200 mcg-62.5 mcg-25 mcg/inh 1 puff(s) inhaled once a day for 30 days Active MONTELUKAST 10 mg 1 tab(s) orally once a day for 90 days Active CARVEDILOL 25 mg Act kristin FLONASE 50 mcg/inh 2 spray(s) in each nostril bid for 30 day(s) Active SPIRONOLACTONE 25 mg Active FAMOTIDINE 40 mg 1 tab(s) orally 30 mins prior to SCIT for 30 days Active Famotidine 40 mg 1 tab(s) orally 30 mins prior to SCIT for 30 days Active Encounters Encounter Location Date Provider Diagnosis [facility] [place] [address] [facility] [address] [place] [address] 06/14/2024 Derrell Neal Allergic rhinitis du e to pollen J30.1 ; Other allergic rhinitis J30.89 ; Allergic rhinitis due to animal (cat) (dog) hair and dander J30.81 and Other chronic allergic conjunctivitis H10.45 Assessments Encounter Date Diagnosis (ICD Code) Assessment Notes Treatment Notes Treatment Clinical Notes Section Notes 06/14/2024 Allergic rhinitis due to pollen (ICD-10 - J30.1) 06/14/2024 Other allergic rhinitis (ICD-10 - J30.89) 06/14/2024 Allergic rhinitis due to animal (cat) (dog) hair and dander (ICD-10 - J30.81) 06/14/2024 Other chronic allergic conjunctivitis (ICD-10 - H10.45) Plan Of Treatment Next Appt Details Follow Up: 1 Week, Reason: Provider Name:Derrell Neal , 07/12/2024 03:20:00 PM, [address], [place], [address], Progress Notes * Jennifer LEVYOB:[birth year] (63 yo M)Acc No.[id number]:06/14/2024 SCIT-Aeroallergen Patient: Cintia DELUNA Chace Provider: Jez Neal MD :1960 A ge:63 Y S ex:Male Date:06/14/2024 Address:[facility] [place] [id number] Pcp:Ba Espino Subjective: * Chief Complaints: * S CIT - Traditional Schedule Allergy Immunotherapy * HPI: * Introduction: The patient is here for scheduled immunotherapy. Please see the attached specialty form regarding the specifics of the administration of these vaccines. As per our protocol, they must undergo a screening health questionnaire (medication changes, reaction(s) to last immunotherapy dose(s), current health status, ACT (if appropriate), self-injectable epinephrine on patient(?) and peak flow (if appropriate)). Also, the patient must wait in our office for 30 minutes after receiving the vaccine(s). Furthermore, every patient must have an epinephrine pen (self-injectable) with them at the time of administration--and carry if for the following 1.5 hours after they leave our office. The patient must also have taken their antihistamine the day of the injection, preferably 2 hours prior. The consent form for SCIT (subcutaneous immunotherapy) is on file. * Medical History: * Surgical History: * Hospitalization/Major Diagno stic Procedure: * Medications: T akingFamotidine 40 mg tablet 1 tab(s) orally 30 mins prior to SCIT Famotidine 40 mg tablet 1 tab(s) orally 30 mins prior to SCIT FAMOTIDINE 40 mg tablet 1 tab(s) orally 30 mins prior to SCIT SPIRONOLACTONE 25 mg tablet CARVEDILOL 25 mg tablet MONTELUKAST 10 mg tablet 1 tab(s) orally once a day TRELEGY ELLIPTA 200 mcg-62.5 mcg-25 mcg/inh powder 1 puff(s) inhaled once a day BENRALIZUMAB 30 mg/mL solution as directed subcutaneously every 8 weeks FLONASE 50 mcg/inh spray 2 spray(s) in each nostril bid ALVINA 24 HOUR ALLERGY 180 mg tablet 1 tab(s) orally once a day AUVI-Q 0.3 mg kit as directed intramuscularly once Spironolactone 25 MG Tablet NIFEDIPINE (EQV- PROCARDIA XL) 60 MG TABLET, EXTENDED RELEASE , Notes to Pharmacist: *Please review for potential replacement for e-prescription and drug interaction check*Carvedilol 25 MG Tablet PROAIR HFA 90 MCG/INH AEROSOL 2 PUFF(S) INHALED EVERY 6 HOURS , Notes to Pharmacist: *Please review for potential replacement for e-prescription and drug interaction check*Montelukast Sodium 10 MG Tablet 1 tab(s) orally once a day Benralizumab 30 MG/ML SOLUTION DIRECTED SUBCUTANEOUSLY EVERY 8 WEEKS , Notes to Pharmacist: *Please review and pick correct strength-formulation from [employer] options. If intended option is not shown, discontinue and re-order from Quick Search*Flonase Allergy Relief 50 MCG/ACT Suspension 2 spray(s) in each nostril bid Alvina Allergy 180 MG Tablet 1 tab(s) orally once a day Auvi-Q 0.3 MG/0.3ML Solution Auto-injector as directed intramuscularly once SIT (TRADITIONAL) VARIABLE SEE RECORD PER SCHEDULE SC PER SCHEDULE , Notes to Pharmacist: *Please review for potential replacement for e-prescription and drug interaction check*Trelegy Ellipta 200-62.5-25 MCG/ACT Aerosol Powder Breath Activated 1 puff Inhalation Once a day Trelegy Ellipta 200-62.5-25 MCG/ACT Aerosol Powder Breath Activated 1 PUFF(S) INHALED ONCE A DAY Albuterol Sulfate HFA 108 (90 Base) MCG/ACT Aerosol Solution 2 puff as needed Inhalation every 4 hrs Taking Famotidine 40 mg tablet 1 tab(s) orally 30 mins prior to SCIT Taking Famotidine 40 mg tablet 1 tab(s) orally 30 mins prior to SCIT Taking FAMOTIDINE 40 mg tablet 1 tab(s) orally 30 mins prior to SCIT Taking SPIRONOLACTONE 25 mg tablet Taking CARVEDILOL 25 mg tablet Taking MONTELUKAST 10 mg tablet 1 tab(s) orally once a day Taking TRELEGY ELLIPTA 200 mcg-62.5 mcg-25 mcg/inh powder 1 puff(s) inhaled once a day Taking BENRALIZUMAB 30 mg/mL solution as directed subcutaneously every 8 weeks Taking FLONASE 50 mcg/inh spray 2 spray(s) in each nostril bid Taking ALVINA 24 HOUR ALLERGY 180 mg tablet 1 tab(s) orally once a day Taking AUVI-Q 0.3 mg kit as directed intramuscularly once Taking Spironolactone 25 MG Tablet Taking NIFEDIPINE (EQV-PROCARDIA XL) 60 MG TABLET, EXTENDED RELEASE , Notes to Pharmacist: *Please review for potential replacement for e-prescription and drug interaction check*Taking Carvedilol 25 MG Tablet Taking PROAIR HFA 90 MCG/INH AEROSOL 2 PUFF(S) INHALED EVERY 6 HOURS , Notes to Pharmacist: *Please review for potential replacement for e-prescription and drug interaction check*Taking Montelukast Sodium 10 MG Tablet 1 tab(s) orally once a day Taking Benralizumab 30 MG/ML SOLUTION DIRECTED SUBCUTANEOUSLY EVERY 8 WEEKS , Notes to Pharmacist: *Please review and pick correct strength-formulation from Meal Mantra options. If intended option is not shown, discontinue and re-order from Quick Search*Taking Flonase Allergy Relief 50 MCG/ACT Suspension 2 spray(s) in each nostril bid Taking Alvina Allergy 180 MG Tablet 1 tab(s) orally once a day Taking Auvi-Q 0.3 MG/0.3ML Solution Auto-injector as directed intramuscularly once Taking SIT (TRADITIONAL) VARIABLE SEE RECORD PER SCHEDULE SC PER SCHEDULE , Notes to Pharmacist: *Please review for potential replacement for e-prescription and drug interaction check*Taking Trelegy Ellipta 200-62.5-25 MCG/ACT Aerosol Powder Breath Activated 1 puff Inhalation Once a day Taking Trelegy Ellipta 200-62.5-25 MCG/ACT Aerosol Powder Breath Activated 1 PUFF(S) INHALED ONCE A DAY Taking Albuterol Sulfate HFA 108 (90 Base) MCG/ACT Aerosol Solution 2 puff as needed Inhalation every 4 hrs Not-Taking/PRNFAMOTIDINE 40 mg tablet 1 tab(s) orally 30 mins prior to SCIT SYMBICORT 160 mcg-4.5 mcg/inh aerosol MONTELUKAST 10 mg tablet 1 tab(s) orally once a day SPIRIVA RESPIMAT 1.25 mcg/inh aerosol 2 puff(s) inhaled once a day Famotidine 40 MG Tablet 1 tab(s) orally 30 mins prior to SCIT Symbicort 160-4.5 MCG/ACT Aerosol Montelukast Sodium 10 MG Tablet 1 tab(s) orally once a day OLOPATADINE NASAL 665 MCG/INH SPRAY 2 SPRAY(S) INTRANASALLY 2 TIMES A DAY , Notes to Pharmacist: *Please review for potential replacement for e-prescription and drug interaction check*Spiriva Respimat 1.25 MCG/ACT Aerosol Solution 2 puff(s) inhaled once a day ALVINA-D 24 HOUR ALLERGY AND CONGESTION 180 MG-240 MG TABLET, EXTENDED RELEASE 1 TAB(S) ORALLY ONCE A DAY , Notes to Pharmacist: *Please review for potential replacement for e-prescription and drug interaction check*Not-Taking/PRN FAMOTIDINE 40 mg tablet 1 tab(s) orally 30 mins prior to SCIT Not-Taking/PRN SYMBICORT 160 mcg-4.5 mcg/inh aerosol Not-Taking/PRN MONTELUKAST 10 mg tablet 1 tab(s) orally once a day Not-Taking/PRN SPIRIVA RESPIMAT 1.25 mcg/inh aerosol 2 puff(s) inhaled once a day Not-Taking/PRN Famotidine 40 MG Tablet 1 tab(s) orally 30 mins prior to SCIT Not-Taking/PRN Symbicort 160-4.5 MCG/ACT Aerosol Not-Taking/PRN Montelukast Sodium 10 MG Tablet 1 tab(s) orally once a day Not-Taking/PRN OLOPATADINE NASAL 665 MCG/INH SPRAY 2 SPRAY(S) INTRANASALLY 2 TIMES A DAY , Notes to Pharmacist: *Please review for potential replacement for e-prescription and drug interaction check*Not-Taking/PRN Spiriva Respimat 1.25 MCG/ACT Aerosol Solution 2 puff(s) inhaled once a day Not-Taking/PRN ALVINA-D 24 HOUR ALLERGY AND CONGESTION 180 MG-240 MG TABLET, EXTENDED RELEASE 1 TAB(S) ORALLY ONCE A DAY , Notes to Pharmacist: *Please review for potential replacement for e-prescription and drug interaction check* Objective: * Vitals: Assessment: * Assessment: 1. A llergic rhinitis due to pollen - J30.1 (Primary) 2 . O ther allergic rhinitis - J30.89 3 . A llergic rhinitis due to animal (cat) (dog) hair and dander - J30.81 4 . O ther chronic allergic conjunctivitis - H10.45 Plan: * Treatment: * Procedure Codes: 9 5117 IMMUNOTHERAPY INJECTIONS * Follow Up: 1 Week * Billing Information: * Visit Code: * Procedure Codes: 63941 IMMUNOTHERAPY INJECTIONS. * Sign off status: Completed true * Provider: Jez Neal MD Date: 0 06/14/2024 Generated for Elizabeth chavarria/Ant/[place] on: 0 06/23/2024 05:28 PM CDT History and Physical Notes * HPI (History of Present Illness) Category Sub-Category Detail Notes Category Not es *Introduction The patient is here for scheduled immunotherapy. Please see the attached specialty form regarding the specifics of the administration of these vaccines. As per our protocol, they must undergo a screening health questionnaire (medication changes, reaction(s) to last immunotherapy dose(s), current health status, ACT (if appropriate), self-injectable epinephrine on patient(?) and peak flow (if appropriate)). Also, the patient must wait in our office for 30 minutes after receiving the vaccine(s). Furthermore, every patient must have an epinephrine pen (self-injectable) with them at the time of administration--and carry if for the following 1.5 hours after they leave our office. The patient must also have taken their antihistamine the day of the injection, preferably 2 hours prior. The consent form for SCIT (subcutaneous immunotherapy) is on file.
--- OUTSIDE RECORDS SUMMARY | 2024-06-23 17:28 | XMS_ITS ---
Author Organization Formerly [facility] [place] ([phone]) Address [address] [place] [id number] Care Team Providers Care Night Auditor Name Role Phone Srinivas Ba Primary Care Provider UnavailEddie Barrera Unavailable [phone] Sawyer Roach Unavailable Unavailable Derrell Neal Unavailable [phone] REASON FOR VISIT SCIT - Traditional Schedule Allergy Immunotherapy Medications Medication SIG (Take, Route, Frequency, Duration) Notes Start Date End Date Status Trelegy Ellipta 200-62.5-25 MCG/ACT 1 puff Inhalation Once a day for 90 days 01/06/2024 Active Trelegy Ellipta 200-62.5-25 MCG/ACT 1 PUFF(S) INHALED ONCE A DAY for 30 days Active Spiriva Respimat 1.25 MCG/ACT 2 puff(s) inhaled once a day for 30 day(s) Not-Taking ALVINA-D 24 HOUR ALLERGY AND CONGESTION 180 [...] once a day for 30 day(s) Not-Taking Famotidine 40 MG 1 tab(s) orally 30 mins prior to SCIT for 30 days 09/08/2022 Not-Taking Symbicort 160-4.5 MCG/ACT Not-Taking Auvi-Q 0.3 MG/0.3ML as directed intramuscularly once for 30 day(s) Active SIT (TRADITIONAL) VARIABLE PER SCHEDULE SC PER SCHEDULE for TO BE DETERMINED *Please review for potential replacement for e-prescription and drug interaction check* Active PROAIR HFA 90 MCG/INH 2 PUFF(S) INHALED EVERY 6 HOURS *Please review for potential replacement for e-prescription and drug interaction check* Active Flonase Allergy Relief 50 MCG/ACT 2 spray(s) in each nostril bid for 30 day(s) Active Alvina Allergy 180 MG 1 tab(s) orally once a day Active Montelukast Sodium 10 MG 1 tab(s) orally once a day for 90 days Active Benralizumab 30 MG/ML DIRECTED SUBCUTANEOUSLY EVERY 8 WEEKS *Please review and pick correct strength-formula tion from [employer] options. If intended option is not shown, discontinue and re-order from Quick Search* Active Carvedilol 25 MG Act kristin NIFEDIPINE (EQV-PROCARDIA XL) 60 MG *Please review for potential replacement for e-prescription and drug interaction check* Active SPIRIVA RESPIMAT 1.25 mcg/inh 2 puff(s) inhaled once a day for 30 day(s) Not-Taking Spironolactone 25 MG Active MONTELUKAST 10 mg 1 tab(s) orally once a day for 30 day(s) Not-Taking SYMBICORT 160 mcg-4.5 mcg/inh Not-Taking AUVI-Q 0.3 mg as directed intramuscularly once for 30 day(s) Active FAMOTIDINE 40 mg 1 tab(s) orally 30 mins prior to SCIT for 30 days 09/08/2022 Not-Taking FLONASE 50 mcg/inh 2 spray(s) in each nostril bid for 30 day(s) Active ALVINA 24 HOUR ALLERGY 180 mg 1 tab(s) orally once a day Active BENRALIZUMAB 30 mg/mL as directed subcutaneously every 8 weeks Active MONTELUKAST 10 mg 1 tab(s) orally once a day for 90 days Active TRELEGY ELLIPTA 200 mcg-62.5 mcg-25 mcg/inh 1 puff(s) inhaled once a day for 30 days Active SPIRONOLACTONE 25 mg Active CARVEDILOL 25 mg Act kristin Albuterol Sulfate HFA 108 (90 Base) MCG/ACT 2 puff as needed Inhalation every 4 hrs for 30 days 05/10/2024 Active FAMOTIDINE 40 mg 1 tab(s) orally 30 mins prior to SCIT for 30 days Active Famotidine 40 mg 1 tab(s) orally 30 mins prior to SCIT for 30 days Active Encounters Encounter Location Date Provider Diagnosis [facility] [place] [address] [facility] [address] [place] [address] 05/17/2024 Derrell Neal Allergic rhinitis du e to pollen J30.1 ; Other allergic rhinitis J30.89 ; Allergic rhinitis due to animal (cat) (dog) hair and dander J30.81 and Other chronic allergic conjunctivitis H10.45 Assessments Encounter Date Diagnosis (ICD Code) Assessment Notes Treatment Notes Treatment Clinical Notes Section Notes 05/17/2024 Allergic rhinitis due to pollen (ICD-10 - J30.1) 05/17/2024 Other allergic rhinitis (ICD-10 - J30.89) 05/17/2024 Allergic rhinitis due to animal (cat) (dog) hair and dander (ICD-10 - J30.81) 05/17/2024 Other chronic allergic conjunctivitis (ICD-10 - H10.45) Plan Of Treatment Next Appt Details Follow Up: 1 Week, Reason: Provider Name:Derrell DerekTisha Neal , 07/12/2024 03:20:00 PM, [address], [place], [address], Progress Notes * Jennifer LEVYOB:[birth year] (63 yo M)Acc No.[id number]:05/17/2024 SCIT-Aeroallergen Patient: Cintia DELUNA Chace Provider: Jez Neal MD :[id number] A ge:63 Y S ex:Male Date:05/17/2024 Address:[facility] [place] [id number] Pcp:Ba Espino Subjective: * Chief Complaints: * [...] *Please review and pick correct strength-formulation from [employer] options. If intended option is not shown, [...] *Please review and pick correct strength-formulation from [employer] options. If intended option is not shown, [...] Information: * Visit Code: * Procedure Codes: 84039 IMMUNOTHERAPY INJECTIONS. * Sign off status: Completed true * Provider: Jez Neal MD Date: 0 05/17/2024 Generated for Elizabeth chavarria/Ant/[place] on: 0 06/23/2024 [...]
--- OUTSIDE RECORDS SUMMARY | 2024-06-23 17:29 | XMS_ITS | Clinical Summary ---
Author Organization [facility] Address [address] [address] Care Team Providers Care Slag Skimmer Name Role Phone Ba Espino MD Primary Care Provider [phone] Allergies Active Allergy Reactions Criticality Noted Date Comments Atorvastatin Other (See comments) High 11/22/2018 Pt reports history of SOB while taking We will trial rosuva per Dr Nguyen (see note 12/03/18) Medications budesonide-form oteroL (SYMBICORT) 160-4.5 mcg/actuation inhalerIndicati ons:Maintenance Therapy for Asthma Inhale 2 puffs 2 (two) times a day 0 Active carvediloL (COREG) 25 mg tabletIndicatio ns:hypertension Take 1 tablet (25 mg total) by mouth 2 (two) times a day with meals 0 Active montelukast (SINGULAIR) 10 mg tabletIndicatio ns:Maintenance Therapy for Asthma Take 10 mg by mouth nightly 0 Active NIFEdipine CC 30 mg 24 hr tablet Take 1 tablet (30 mg total) by mouth every morning 0 Active aspirin 81 mg enteric coated tabletIndicatio ns:prevention of thrombosis Take 1 tablet (81 mg total) by mouth every morning Active multivitamin capsule Take 1 capsule by mouth daily with lunch Active albuterol HFA (PROVENTIL HFA,VENTOLIN HFA,PROAIR HFA) 90 mcg/actuation inhalerIndicati ons:Acute Asthma Attack Inhale 2 puffs every 6 (six) hours as needed for wheezing Active budesonide (PULMICORT) 0.5 mg/2 mL nebulizer solution Mix 1 capsule/ampule in 250 mL of saline irrigations (NeilMed Sinus Rinse) and irrigate each nostril with half of the bottle twice daily. 120 mL 6 0 Active Additional Information Patient not taking.Reported on 10/10/2019 fluticasone-ume clidin-vilanter (Trelegy Ellipta) 200-62.5-25 mcg inhaler daily Active fexofenadine (Alvina Allergy) 180 mg tablet daily Active furosemide (LASIX) 20 mg tablet Take 1 tablet (20 mg total) by mouth daily 3 Active latanoprost (XALATAN) 0.005 % ophthalmic solution APPLY 1 DROP INTO BOTH EYES EVERY EVENING BEFORE DINNER 3 Active omeprazole (PriLOSEC) 40 mg capsule Take 1 capsule (40 mg total) by mouth daily 3 Active Active Problems Problem Noted Date Diagnosed Date Moderate persistent asthma without complication 01/29/2021 Sleep disorder 01/29/2021 Psychophysiological insomnia 01/29/2021 Non-seasonal allergic rhinitis due to pollen Nonsmoker 01/29/2021 Fatigue 01/29/2021 Leg swelling 01/29/2021 History of aortic dissection 01/29/2021 Chronic pansinusitis 09/19/2019 Overview (09/19/2019): Added automatically from request for surgery [id number] Deviated nasal septum 09/19/2019 Overview (09/19/2019): Added automatically from request for surgery [id number] Nasal polyps 09/19/2019 Heart valve replaced by transplant Surgical History Surgery Date Site/Laterality Comments AORTA SURGERY COLONOSCOPY 03/02/2014 - 03/01/2015 Medical History Medical History Date Comments Allergic rhinitis Asthma Hypertension 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 Gender Identity Not on file Sexual Orientation Not on file Obstetrics History Last Filed Vital Signs Vital Sign Reading Time Taken Comments Blood Pressure 148/88 07/10/2022 6:44 PM CDT Pulse 67 07/10/2022 6:44 PM CDT Temperature 37.2 C (99 F) 07/10/2022 6:44 PM CDT Respiratory Rate 18 07/10/2022 6:44 PM CDT Oxygen Saturation 94% 07/10/2022 6:44 PM CDT Inhaled Oxygen Concentration - - Weight 125.6 kg (277 lb) 07/10/2022 6:44 PM CDT Height 182.9 cm (6') 07/10/2022 6:44 PM CDT Body Mass Index 37.57 07/10/2022 6:44 PM CDT Plan of Treatment Health Maintenance Due Date Last Done Comments Colon Cancer Screening-Colonoscopy 1960 Hepatitis C Screening 1960 Prostate Cancer Screening-PSA 1960 DTaP/Tdap/Td Vaccine (1 - Tdap) 1973 Hepatitis B Screening 1980 Regular Well Visit/Exam 18-64 1980 Pneumococcal vaccine <65 (1 of 2 - PCV) 1981 Zoster Vaccine (1 of 2) 2012 Depression Screening 10/09/2020 10/10/2019, 10/10/19 20 Covid-19 Vaccine (3 - 2023- season) 2023, 05/08/2020 Influenza Vaccine (#1) 2023 Insurance [facility] CHOICE PLUS [facility] CHOICE PLUS [facility] CHOICE PLUS [facility] CHOICE PLUS Member Subscriber Plan / Payer (Ef fective 2020-Present) Name:Amanda Levy Relation to Subscriber:Spouse Name:AMANDA LEVY Date of :1969 (Home) Address: [address] [place] [address] Payer ID:[id number] (NAIC) Type:[facility] HMO/PPO Address: [place] [phone] Care Teams Slag Skimmer Relationship Specialty Start Date End Date Ba Espino MD [address] [place] [address] PCP - General Family Medicine 01/29/21
--- OUTSIDE RECORDS SUMMARY | 2024-06-23 17:29 | XMS_ITS | Patient Health Record ---
Author Organization [facility] [place] ([address]) Address [address] [place] [address] Care Team Providers Care Counter Sales Representative Name Role Phone Ba Espino Primary Care Provider UnavailEddie Barrera Unavailable [phone] Sawyer Roach Unavailable Unavailable Derrell Neal Unavailable [phone] [facility], Provider Unavailable Unavailab le Allergies No Known Allergies Reason For Referral No Information Medications Medication SIG (Take, Route, Frequency, Duration) Notes Start Date End Date Status SPIRONOLACTONE 25 mg Active FAMOTIDINE 40 mg 1 tab(s) orally 30 mins prior to SCIT for 30 days Active Famotidine 40 mg 1 tab(s) orally 30 mins prior to SCIT for 30 days Active BENRALIZUMAB 30 mg/mL as directed subcutaneously every 8 weeks Active TRELEGY ELLIPTA 200 mcg-62.5 mcg-25 mcg/inh 1 puff(s) inhaled once a day for 30 days Active MONTELUKAST 10 mg 1 tab(s) orally once a day for 90 days Active CARVEDILOL 25 mg Act kristin Kristina Allergy 180 MG 1 tab(s) orally once a day Active Flonase Allergy Relief 50 MCG/ACT 2 spray(s) in each nostril bid for 30 day(s) Active Benralizumab 30 MG/ML DIRECTED SUBCUTANEOUSLY EVERY 8 WEEKS *Please review and pick correct strength-formula tion from Medispan options. If intended option is not shown, discontinue and re-order from Quick Search* Active FLONASE 50 mcg/inh 2 spray(s) in each nostril bid for 30 day(s) Active Montelukast Sodium 10 MG 1 tab(s) orally once a day for 90 days Active Symbicort 160-4.5 MCG/ACT Not-Taking Famotidine 40 MG 1 tab(s) orally 30 mins prior to SCIT for 30 days 09/08/2022 Not-Taking SIT (TRADITIONAL) VARIABLE PER SCHEDULE SC PER SCHEDULE for TO BE DETERMINED *Please review for potential replacement for e-prescription and drug interaction check* Active Auvi-Q 0.3 MG/0.3ML as directed intramuscularly once for 30 day(s) Active OLOPATADINE NASAL 665 MCG/INH 2 SPRAY(S) INTRANASALLY 2 TIMES A DAY for 30 DAY(S) *Please review for potential replacement for e-prescription and drug interaction check* Not-Taking Montelukast Sodium 10 MG 1 tab(s) orally once a day for 30 day(s) Not-Taking AUVI-Q 0.3 mg as directed intramuscularly once for 30 day(s) Active KRISTINA 24 HOUR ALLERGY 180 mg 1 tab(s) orally once a day Active FAMOTIDINE 40 mg 1 tab(s) orally 30 mins prior to SCIT for 30 days Active SPIRIVA RESPIMAT 1.25 mcg/inh 2 puff(s) inhaled once a day for 30 day(s) Not-Taking MONTELUKAST 10 mg 1 tab(s) orally once a day for 30 day(s) Not-Taking SYMBICORT 160 mcg-4.5 mcg/inh Not-Taking FAMOTIDINE 40 mg 1 tab(s) orally 30 mins prior to SCIT for 30 days 09/08/2022 Not-Taking PROAIR HFA 90 MCG/INH 2 PUFF(S) INHALED EVERY 6 HOURS *Please review for potential replacement for e-prescription and drug interaction check* Active Spiriva Respimat 1.25 MCG/ACT 2 puff(s) inhaled once a day for 30 day(s) Not-Taking Carvedilol 25 MG Act kristin NIFEDIPINE (EQV-PROCARDIA XL) 60 MG *Please review for potential replacement for e-prescription and drug interaction check* Active Spironolactone 25 MG Active Albuterol Sulfate HFA 108 (90 Base) MCG/ACT 2 puff as needed Inhalation every 4 hrs for 30 days 05/10/2024 Active Trelegy Ellipta 200-62.5-25 MCG/ACT 1 PUFF(S) INHALED ONCE A DAY for 30 days Active Trelegy Ellipta 200-62.5-25 MCG/ACT 1 puff Inhalation Once a day for 90 days 01/06/2024 Active KRISTINA-D 24 HOUR ALLERGY AND CONGESTION 180 MG-240 MG 1 TAB(S) ORALLY ONCE A DAY *Please review for potential replacement for e-prescription and drug interaction check* Not-Taking Immunizations Vaccine Route Administration Date Status Comme nts Covid 19 (Naif & Naif) Unknown 05/08/2020 Adminis tered Covid 19 (Naif & Naif) Unknown 03/23/2021 Adminis tered Social History Tobacco Use: Social History Observation Description Date Details (start date - stop date) Never Smoker NA - NA Smoking Smart Form: Question Answer Notes Are you a: never smoker Tobacco Control (Standard) Question Answer Notes Tobacco use: Nonsmoker Problems Problem Type SNOMED Code ICD Code Onset Dates Problem Status W/U Status Risk Notes Problem Chronic allergic conjunctivitis (67342574) Other chronic allergic conjunctivitis (H10.45) Active confirmed Problem Abdominal aortic aneurysm without rupture (84705075) Abdominal aortic aneurysm, without rupture (I71.4) Active confirmed Problem Allergic rhinitis caused by pollen (disorder) (50205597) Allergic rhinitis due to pollen (J30.1) Active confirmed Problem Allergic rhinitis (51750577) Other allergic rhinitis (J30.89) Active confirmed Problem Polyp of nasal cavity (disorder) (260165387) Nasal polyp, unspecified (J33.9) Active confirmed Problem Allergic rhinitis caused by animal hair and dander (613965484355443) Allergic rhinitis due to animal (cat) (dog) hair and dander (J30.81) Active confirmed Problem Uncomplicated severe persistent asthma (313108470) Severe persistent asthma, uncomplicated (J45.50) Active confirmed Problem Essential hypertension (29185356) Essential (primary) hypertension (I10) Active confirmed Problem 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) Active confirmed Problem Cough (finding) (81497973) Cough, unspecified (R05.9) Active confirmed Encounters Encounter Location Date Provider Diagnosis [address] [place] [address] 08/15/2023 Provider [facility] Allergic rhinitis due to pollen J30.1 [facility] [address] [place] [phone] 07/15/2023 Derrell Ángel Allergic rhinitis du e to pollen J30.1 ; Other allergic rhinitis J30.89 ; Allergic rhinitis due to animal (cat) (dog) hair and dander J30.81 and Other chronic allergic conjunctivitis H10.[address] [address] 08/12/2023 Derrell Ángel Allergic rhinitis du e to pollen J30.1 ; Other allergic rhinitis J30.89 ; Allergic rhinitis due to animal (cat) (dog) hair and dander J30.81 and Other chronic allergic conjunctivitis H10.[address] [address] 09/09/2023 Derrell Neal Allergic rhinitis du e to pollen J30.1 ; Other allergic rhinitis J30.89 ; Allergic rhinitis due to animal (cat) (dog) hair and dander J30.81 and Other chronic allergic conjunctivitis H10.45 [facility] [address] [place] [address] 10/07/2023 Derrell Ángel Allergic rhinitis du e to pollen J30.1 ; Other allergic rhinitis J30.89 ; Allergic rhinitis due to animal (cat) (dog) hair and dander J30.81 and Other chronic allergic conjunctivitis H10.[address] [address] 11/04/2023 Derrell Neal Allergic rhinitis du e to pollen J30.1 ; Other allergic rhinitis J30.89 ; Allergic rhinitis due to animal (cat) (dog) hair and dander J30.81 and Other chronic allergic conjunctivitis H10.[address] [address] 12/02/2023 Derrell Neal Allergic rhinitis du e to pollen J30.1 ; Other allergic rhinitis J30.89 ; Allergic rhinitis due to animal (cat) (dog) hair and dander J30.81 and Other chronic allergic conjunctivitis H10.45 [facility] [address] [place] [address] [address] 01/06/2024 Derrell Neal Allergic rhinitis du e to pollen J30.1 ; Other allergic rhinitis J30.89 ; Allergic rhinitis due to animal (cat) (dog) hair and dander J30.81 and Other chronic allergic conjunctivitis H10.45 [facility] [address] [place] [address] 02/03/2024 Derrell Neal Allergic rhinitis du e to pollen J30.1 ; Other allergic rhinitis J30.89 ; Allergic rhinitis due to animal (cat) (dog) hair and dander J30.81 and Other chronic allergic conjunctivitis H10.45 [facility] [address] [place] [address] 03/22/2024 Derrell Neal Allergic rhinitis du e to pollen J30.1 ; Other allergic rhinitis J30.89 ; Allergic rhinitis due to animal (cat) (dog) hair and dander J30.81 and Other chronic allergic conjunctivitis H10.45 [facility] [address] [place] [address] 03/29/2024 Derrell Neal Allergic rhinitis du e to pollen J30.1 ; Other allergic rhinitis J30.89 ; Allergic rhinitis due to animal (cat) (dog) hair and dander J30.81 and Other chronic allergic conjunctivitis H10.45 [facility] [address] [place] [address] 05/04/2024 Derrell Neal Allergic rhinitis du e to pollen J30.1 ; Other allergic rhinitis J30.89 ; Allergic rhinitis due to animal (cat) (dog) hair and dander J30.81 and Other chronic allergic conjunctivitis H10.45 [facility] [address] [place] [address] 05/10/2024 Derrell Neal Allergic rhinitis du e to pollen J30.1 ; Other allergic rhinitis J30.89 ; Allergic rhinitis due to animal (cat) (dog) hair and dander J30.81 and Other chronic allergic conjunctivitis H10.45 [facility] [address] [place] [address] 05/17/2024 Derrell Neal Allergic rhinitis du e to pollen J30.1 ; Other allergic rhinitis J30.89 ; Allergic rhinitis due to animal (cat) (dog) hair and dander J30.81 and Other chronic allergic conjunctivitis H10.[address] [address] 06/14/2024 Derrell Neal Allergic rhinitis du e to pollen J30.1 ; Other allergic rhinitis J30.89 ; Allergic rhinitis due to animal (cat) (dog) hair and dander J30.81 and Other chronic allergic conjunctivitis H10.[address] [address] 01/06/2024 Eddie Greff Cough, unspecified R05.[address] [address] 05/10/2024 Eddie Greff Cough, unspecified R05.9 Assessments Encounter Date Diagnosis (ICD Code) Assessment Notes Treatment Notes Treatment Clinical Notes Section Notes 07/15/2023 Allergic rhinitis due to pollen (ICD-10 - J30.1) 08/12/2023 Allergic rhinitis due to pollen (ICD-10 - J30.1) 09/09/2023 Allergic rhinitis due to pollen (ICD-10 - J30.1) 10/07/2023 Allergic rhinitis due to pollen (ICD-10 - J30.1) 11/04/2023 Allergic rhinitis due to pollen (ICD-10 - J30.1) 12/02/2023 Allergic rhinitis due to pollen (ICD-10 - J30.1) 01/06/2024 Allergic rhinitis due to pollen (ICD-10 - J30.1) 01/06/2024 Cough, unspecified (ICD-10 - R05.9) 02/03/2024 Allergic rhinitis due to pollen (ICD-10 - J30.1) 03/22/2024 Allergic rhinitis due to pollen (ICD-10 - J30.1) 03/29/2024 Allergic rhinitis due to pollen (ICD-10 - J30.1) 05/04/2024 Allergic rhinitis due to pollen (ICD-10 - J30.1) 05/10/2024 Allergic rhinitis due to pollen (ICD-10 - J30.1) 05/10/2024 Cough, unspecified (ICD-10 - R05.9) 05/17/2024 Allergic rhinitis due to pollen (ICD-10 - J30.1) 06/14/2024 Allergic rhinitis due to pollen (ICD-10 - J30.1) 05/17/2024 Other allergic rhinitis (ICD-10 - J30.89) 06/14/2024 Other allergic rhinitis (ICD-10 - J30.89) 01/06/2024 Other allergic rhinitis (ICD-10 - J30.89) 05/10/2024 Other allergic rhinitis (ICD-10 - J30.89) 05/04/2024 Other allergic rhinitis (ICD-10 - J30.89) 03/29/2024 Other allergic rhinitis (ICD-10 - J30.89) 03/22/2024 Other allergic rhinitis (ICD-10 - J30.89) 02/03/2024 Other allergic rhinitis (ICD-10 - J30.89) 12/02/2023 Other allergic rhinitis (ICD-10 - J30.89) 11/04/2023 Other allergic rhinitis (ICD-10 - J30.89) 10/07/2023 Other allergic rhinitis (ICD-10 - J30.89) 09/09/2023 Other allergic rhinitis (ICD-10 - J30.89) 08/12/2023 Other allergic rhinitis (ICD-10 - J30.89) 07/15/2023 Other allergic rhinitis (ICD-10 - J30.89) 07/15/2023 Allergic rhinitis due to animal (cat) (dog) hair and dander (ICD-10 - J30.81) 08/15/2023 Allergic rhinitis due to pollen (ICD-10 - J30.1) 08/12/2023 Allergic rhinitis due to animal (cat) (dog) hair and dander (ICD-10 - J30.81) 09/09/2023 Allergic rhinitis due to animal (cat) (dog) hair and dander (ICD-10 - J30.81) 10/07/2023 Allergic rhinitis due to animal (cat) (dog) hair and dander (ICD-10 - J30.81) 11/04/2023 Allergic rhinitis due to animal (cat) (dog) hair and dander (ICD-10 - J30.81) 12/02/2023 Allergic rhinitis due to animal (cat) (dog) hair and dander (ICD-10 - J30.81) 01/06/2024 Allergic rhinitis due to animal (cat) (dog) hair and dander (ICD-10 - J30.81) 02/03/2024 Allergic rhinitis due to animal (cat) (dog) hair and dander (ICD-10 - J30.81) 03/22/2024 Allergic rhinitis due to animal (cat) (dog) hair and dander (ICD-10 - J30.81) 03/29/2024 Allergic rhinitis due to animal (cat) (dog) hair and dander (ICD-10 - J30.81) 05/04/2024 Allergic rhinitis due to animal (cat) (dog) hair and dander (ICD-10 - J30.81) 05/10/2024 Allergic rhinitis due to animal (cat) (dog) hair and dander (ICD-10 - J30.81) 05/17/2024 Allergic rhinitis due to animal (cat) (dog) hair and dander (ICD-10 - J30.81) 06/14/2024 Allergic rhinitis due to animal (cat) (dog) hair and dander (ICD-10 - J30.81) 06/14/2024 Other chronic allergic conjunctivitis (ICD-10 - H10.45) 05/17/2024 Other chronic allergic conjunctivitis (ICD-10 - H10.45) 05/10/2024 Other chronic allergic conjunctivitis (ICD-10 - H10.45) 05/04/2024 Other chronic allergic conjunctivitis (ICD-10 - H10.45) 03/29/2024 Other chronic allergic conjunctivitis (ICD-10 - H10.45) 03/22/2024 Other chronic allergic conjunctivitis (ICD-10 - H10.45) 02/03/2024 Other chronic allergic conjunctivitis (ICD-10 - H10.45) 01/06/2024 Other chronic allergic conjunctivitis (ICD-10 - H10.45) 12/02/2023 Other chronic allergic conjunctivitis (ICD-10 - H10.45) 11/04/2023 Other chronic allergic conjunctivitis (ICD-10 - H10.45) 10/07/2023 Other chronic allergic conjunctivitis (ICD-10 - H10.45) 09/09/2023 Other chronic allergic conjunctivitis (ICD-10 - H10.45) 08/12/2023 Other chronic allergic conjunctivitis (ICD-10 - H10.45) 07/15/2023 Other chronic allergic conjunctivitis (ICD-10 - H10.45) Plan Of Treatment Next Appt Details Provider Name:Derrell Neal , 07/12/2024 03:20:00 PM, [address] [facility], [address], [place], [address], Insurance Providers Payer Name Payer Address Payer Phone Subscriber Number Group Number Insured Name Patient Relationship to Insured Coverage Start Date Coverage End Date [employer] [facility] [address] [place] [address] [id number] Chace Irvin Self - patient is the insured 4 Medical (General) History Medical History History ICD Code Essential (primary) hypertension I10 Nasal polyp, unspecified J33.9 Eosinophilic asthma J82.83 Abdominal aortic aneurysm, without ruptu re I71.4 Allergic rhinitis due to pollen J30.1 Allergic rhinitis due to animal (cat) (d og) hair and dander J30.81 Other allergic rhinitis J30.89 Other chronic allergic conjunctivitis H1 0.45 Surgical History Surgery Date(Month/Year) AAA repair nasal polypectomy aorta surgery 09/29/22 Hospitalization History Reason Date(Month/Year) asthma exacerbation NovJan 2021
--- OUTSIDE RECORDS SUMMARY | 2024-06-23 17:29 | XMS_ITS ---
Author Organization [facility] [place] ([address]) Address [address] [place] [address] Care Team Providers Care Functional Analyst Name Role Phone Ba Espino Primary Care Provider UnavailEddie Barrera Unavailable [phone] Sawyer Roach Unavailable Unavailable Derrell Neal Unavailable [phone] REASON FOR VISIT SCIT (Aeroallergen) Encounters Encounter Location Date Provider Diagnosis [facility] [address] [place] [address] 06/01/2024 Derrell Neal Plan Of Treatment Next Appt Details Provider Name:Derrell Neal , 07/12/2024 03:20:00 PM, [address] [facility], [address], [place], [address], Progress Notes * Lainey LEVYineDOB:[birth year] (63 yo M)Acc No.[id number]:06/01/2024 SCIT-Aeroallergen Patient: Cintia DELUNA Chace Provider: Jez Neal MD :1960 A ge:63 Y S ex:Male Date:06/01/2024 Address:[address] [id number] Pcp:Ba Espino Subjective: * Chief Complaints: * 1 . SCIT (Aeroallergen). * Medical History: Objective: * Vitals: Assessment: Plan: * Treatment: * Billing Information: * Visit Code: * Procedure Codes: * Electronic signature of Nimisha Neal MD, FAAAAI on 06/23/2024 at 05:28 PM CDT Sign off status: Pending * Provider: Jez Neal MD Date: 0 06/01/2024 Generated for Elizabeth chavarria/Ant/[place] on: 06/23/2024 05:28 PM CDT
--- OUTSIDE RECORDS SUMMARY | 2024-06-23 17:29 | XMS_ITS | Referral Summary ---
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 [place] [address] [facility] CHOICE PLUS [facility] CHOICE PLUS [facility] [place] [address] Care Teams National Business Director Relationship Specialty Start Date End Date Ba Espino MD [address] [facility] [address] [place] [address] PCP - General Family Medicine 01/29/21
--- OUTSIDE RECORDS SUMMARY | 2024-06-23 17:29 | XMS_ITS | Continuity of Care Document ---
Author Organization [facility] Address [address] [place] [address] [place] [address] Phone Care Team Providers Care Criminal Attorney Name Role Phone Ba Espino MD Unavailable Unavailable Allergies, Adverse Reactions, Alerts Substance Reaction Status Criticality rosuvastatin Active No Information Medications Medication Instructions Dosage Effective Dates (start - stop) Status Comments Trelegy Ellipta 200 mcg-62.5 mcg-25 mcg powder for inhalation inhale 1 puff by inhalation route every day at the same time each day 1.00 puff - Active albuterol sulfate HFA 90 mcg/actuation aerosol inhaler inhale 1 puff by inhalation route every 4 - 6 hours as needed as needed 1 puff - Active PRN for sob Singulair 10 mg tablet take 1 tablet by oral route every day in the evening 10 MG - Active Aspirin Low Dose 81 mg tablet,delayed release take 1 tablet by oral route every day 81 MG - Active nifedipine ER 60 mg tablet,extended release 24 hr take 1 tablet by oral route every day 60 MG - Active Coreg 25 mg tablet take 1 tablet by oral route 2 times every day with food 25 MG - Active Procedures Procedure Date OFFICE/OUTPATIENT VISIT, EST OFFICE/OUTPATIENT VISIT, EST PREV VISIT, EST, AGE 40-64 OFFICE/OUTPATIENT VISIT, EST OFFICE/OUTPATIENT VISIT, EST PREV VISIT, EST, AGE 40-64 OFFICE/OUTPATIENT VISIT, EST OFFICE/OUTPATIENT VISIT, EST PREV VISIT, [facility], AGE 40-64 Advance Directives Directive Yes / No Effective Date File Name No Information Encounters Encounter Description Practice Location Reason(s) For Visit Diagnoses Date Provider Providers Copied on Encounter OFFICE/OUTPA TIENT VISIT, EST [facility], [address], [place], [place], [address], [place] tel:[phone] [facility] PSA (chief complaint) renal (chief complaint) Stage III chronic renal diseaseElevated prostate specific antigen [PSA] 5 Srinivas Cosme. [address], [place], [place], [address] , [place]. tel:[phone] OFFICE/OUTPA TIENT VISIT, EST [facility], [address], [place], [place], [address], [place] [phone] [facility] asthma1 (chief complaint) renal disease1 (chief complaint) HTN (chief complaint) cataract1 (chief complaint) Essential (primary) hypertensionMild intermittent asthma, uncomplicatedStage III chronic renal diseaseOther age-related cataract 4 Srinivas Cosme. [address], [place], [place], [address] , [place]. tel:[phone] PREV VISIT, EST, AGE 40-64 [facility], [address], [place], [place], [address], [place] [phone] [facility] physical (chief complaint) Encounter for general adult medical exam w abnormal findingsMild intermittent asthma, uncomplicatedEssent ial (primary) hypertensionStage III chronic renal diseaseAortic dissectionMixed hyperlipidemiaGERD w/o esophagitisIron deficiencySolitary lung nodule 4 Srinivas Ram [address], [place], [place], [address] , [place]. tel:[phone] OFFICE/OUTPA TIENT VISIT, [facility], [address], [place], [place], [address], [place] tel:[phone] [facility] asthma1 (chief complaint) GERD1 (chief complaint) aortic1 (chief complaint) renal disease1 (chief complaint) Essential (primary) hypertensionGERD w/o esophagitisMild intermittent asthma, uncomplicatedStage III chronic renal diseaseAortic dissection 3 Srinivas Ram [address], [place], [place], [address] , [place]. tel:[phone] PREV VISIT, EST, AGE 40-64 [facility], [address], [place], [place], [address], [place] tel:[phone] [facility] physical (chief complaint) Encounter for general adult medical examination without abnormal findings 2 Srinivas Ram [address], [place], [place], [address] , [place]. tel:[phone] OFFICE/OUTPA TIENT VISIT, [facility], [address], [place], [place], [address], [place] tel:[phone] [facility] GERD1 (chief complaint) colon polyp1 (chief complaint) HTN (chief complaint) renal disease1 (chief complaint) Renal diseaseEssential (primary) hypertensionPolyp of colonGERD w/o esophagitisEdema 2 Srinivas Ram [address], [place], [place], [address] , [place]. tel:[phone] OFFICE/OUTPA TIENT VISIT, EST [facility], [address] [place], [address], [place] tel:[phone] [facility] asthma1 (chief complaint) renal1 (chief complaint) HTN (chief complaint) GERD1 (chief complaint) sleep apnea1 (chief complaint) DM (chief complaint) Renal diseaseGERD w/o esophagitisEdemaAst hmaSleep apneaEssential (primary) hypertensionAnemiaT ype 2 diabetes mellitus without complications 2 Srinivas Ram [address], [place], [place], [address] , [place]. tel:[phone] PREV VISIT, NEW, AGE 40-64 [facility], [address], [place], [place], [address], tel:[phone] [facility] physical (chief complaint) Encounter for general adult medical examination without abnormal findings 1 Edm[address] Rocha, [place], [place], [address] , . tel:[phone] Family History Family Member Type Diagnosis Age At Onset Mother Problem of bowel obstruction 78 , HTN Father Problem of 95 due to old age Brother Problem Hypertension Brother Problem Stroke 57 Payers Payer name Insurance type Covered republican ID Authorkiela tipatricia(s) [facility] [id number] Social History Type Description Quantity Date Captured Comments Alcohol Use Details No Caffeine Use Details Unknown Tobacco Use Status Current non-smoker Smoking Status Never smoker Sex Male Vital Signs Date / Time: Height Weight BMI Pulse Rate Blood Pressure Temperature Respiratory Rate Body Surface Area Head Circumference BMI percentile Pulse Ox Inhaled Ox 5:09 PM 72.00 in 282.20 lbs 38.2 7 kg/m eter (2) 72 /min 130/80 mm[Hg] 98.1 F 16 /min Chief Complaint And Reason For Visit From encounter dated '04/12/2024 17:05'. PSA (chief complaint). Description: Pt has elevated PSA, which doubled from two years ago. pt denies any difficulty with urination, slow stream, urinary urgency or frequently. Pt usually wakes up once per night to urinate only renal (chief complaint). Description: Pt has borderline low renal function with proteinuria. his GFR actually improved from two years ago. Pt denies any flank pain Plan Of Treatment Date Type Action Status Referral Ordered: Nephrology (related to Stage III chronic renal disease) ordered Referral Ordered: Urology (related to Elevated prostate specific antigen [PSA]) ordered Referral Ordered: Referrals: Urology ordered Referral Ordered: Ophthalmology (related to Other age-related cataract) ordered Referral Ordered: Referrals: Ophthalmology. Evaluate and treat ordered Referral Ordered: Nephrology (related to Encounter for general adult medical examination without abnormal findings) ordered Referral Ordered: Referrals: Nephrology. Evaluate and treat ordered Referral Ordered: Amrik Torres -[facility] : Internal Medicine : Nephrology (related to Encounter for general adult medical examination without abnormal findings) ordered Referral Referred To: Amrik Torres [address] [place], [place], [phone] Ordered: Referrals: [facility]opathic Physicians : Internal Medicine : Nephrology. Amrik Torres. Evaluate and treat ordered Referral Referred To: Dayna OCAMPO, Pina Cotton [address] [place], [place], [id number] Ordered: Referrals: Dayna OCAMPO, Pina Cotton. Evaluate and treat ordered Referral Ordered: COLONOSCOPY AND BIOPSY ordered History Of Present Illness Encounter Date Complaint History Of Prese nt Illness renal Pt has borderlin e low renal function with proteinuria. his GFR actually improved from two years ago. Pt denies any flank pain PSA Pt has elevated PSA, which doubled from two years ago. pt denies any difficulty with urination, slow stream, urinary urgency or frequently. Pt usually wakes up once per night to urinate only asthma1 Pt has asthma an d allergy .Pt is on singulair and he gets allergy shot weekly and he is on trelegy and singulair Pt has been breathing ok Pt denies any cough or hemoptysis. renal disease1 Pt has chronic s tage III renal disease Pt has normal UO Pt never did lab work or followed up with nephrology HTN Pt has HTN Pt ta kes norvasc and nifedipine and his bp is ok pt has history of aortic dissection s/p grafting. His cardiac echo was ok recently. he sees cardiology .He denies any chest pain or sob cataract1 Pt has history o f cataract both eyes pt denies any acute eye pain or vision loss Pt wants referral to ophthalmology physical Pt needs annual physical. Pt has history of allergy and asthma Pt last seen pulmonary over two years ago. Pt saw application integration specialist several months ago and he supposes to take symbicort but he is not on it for unknown reason Pt needs singulair and albuterol refilled. Pt does feel frequent sob and wheezing Pt also has HTN. Pt takes coreg and nifedipine and his bp is ok. Pt has HLP with history of thoracic aneurysm dissection with grafting and he sees cardiology from [place]. Pt denies any chest pain Pt also has low renal function Pt never followed up with nephrology. Pt also has stable lung nodule. Pt denies any other complaints, Pt is off protonix Pt denies any recurrent GERD asthma1 Pt has asthma an d allergy. Pt takes singulair and symbicort .Pt needs refill Pt sees pulmonary Pt denies any acute sob Pt denies any hemoptysis GERD1 Pt has chronic G ERD Pt has HH. Pt takes protonix and doing ok Pt failed pepcid Pt has daily GERD without protonix. renal disease1 Pt has chronic s tage III renal disease . Pt has normal UO Pt has not made corry with nephrology yet. aortic1 Pt is s/p aortic dissection with graft procedure last week. Pt had surgery done by CT surgeon in [place] .Pt currently is on 30 mg nifedipine and he is off spironolactone. He was told by cardiology to keep systolic BP around 140-180 for two weeks post graft surgery. Pt denies any chest pain or sob physical Pt needs annual physical Pt has history of aortic aneurysm/dissection s/p dissection surgery with graft 2019. . Pt sees roadway technician in [place]. He denies any chest pain. Pt has asthma. Pt takes symbicort and Singulair and he uses albuterol 2-3 per week. Pt sees pulmonary. Pt has HTN Pt takes coreg, spironolactone and nifedipine and his bp is stable. Pt also has chronic GERD. Pt takes protonix Pt had benign EGD. Pt overall feels well. Pt has borderline low iron without anemia and also stage III renal diease Pt has normal UO. Pt still has not followed up with nephrology yet GERD Pt had EGD done which showed gastritis and HH. Pt does have daily GERD Pt failed pepcid Pt doing ok with protonix colon polyp1 Pt has tubular a denoma on colonoscopy done recently. Pt was told to repeat in 5 years pt denies any lower GI bleeding or lower GI issue HTN Pt has HTN. Pt t akes coreg, nifedipine and spironolactone and his bp is ok now. His lower extremity edema also resolved with spironolactone. Pt denies any chest pain or sob renal disease1 Pt has stage III borderline renal disease. Pt has normal UO. Pt has not made corry with nephrology yet. DM Pt has borderlin e DM Pt denies any polyuria, polydipsia or any neuropathy. 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 Pt takes protonix and doing ok Pt denies any abd pain. Pt denies any nausea, vomiting Pt has not set up endoscopy yet HTN Pt has HTn pt ta kes nifedipine and coreg ad his bp is still borderline high Pt has chronic mild lower extremity edema Pt denies any acute chest pain or sob. renal1 Pt has chronic s table stage III renal disease with GFT around 50. Pt has normal UO Pt is waiting for his corry with nephrology. asthma1 Pt was admitted to hospital recently for asthma exacerbation Pt was evaluated by pulmonary and was treated with albuterol and steroid Pt was discharged on same inhaler of symbicort Pt does not smoke Pt denies any acute sob pt denies any cough or hemoptysis physical Pt needs annual physical Pt has history of aortic aneurysm/dissection s/p dissection surgery with graft 2018. Pt actually had acute aortic dissection. Pt sees roadway technician in [place] Pt has asthma. Pt takes symbicort and Singulair and he uses albuterol at least once per day. Pt c/o some exertional sob chronically and has been getting worse during last month along with cough Pt coughs up clear phlegm Pt denies any fever. Pt denies any orthopnea or PND. Pt denies any urinary symptoms. Pt denies any fever Pt just saw his roadway technician last week and had cardiac echo and CTA and had some lab done as well. Pt also notices some LE edema x 2-3 months. Pt was started lasix last Thursday by cardiology and his edema is improving Pt denies any sob currently pt denies any other complaints. Instructions Date Instruction Additional Infor mation No Information Assessments Type Assessment Date assessment Stage III chronic renal disease assessment Elevated prostate specific antig en [PSA] Mental Status Date Cognitive Assessment Orientation - [place] ed to time, place, person, situation.
== END 2024-06-23 17:01 | disposition home or self-care (01) ==
PROVIDERS: PCP Emergency Medicine; Visit Provider Internal Medicine Nephrology
DX: I12.9 Hypertensive chronic kidney disease with stage 1 through stage 4 chronic kidney disease, or unspecified chronic kidney disease (principal); N18.31 Chronic kidney disease, stage 3a; N28.1 Cyst of kidney, acquired
CPT/HCPCS: 76775

== ENCOUNTER 2024-07-01 13:54 | Outpatient (CLI) | payer OTHER, SELFPAY ==
--- NOTE | ~2024-07-01 | CT_ITS ---
Clinical Indication: Aortic dissection CT Scan of the Chest, Abdomen, and Pelvis with Contrast: Technique: Contiguous sections were acquired throughout the chest, abdomen, and pelvis after intraven ous administration of 100 cc of Omnipaque 350. Dose reduction technique was used on this scan by juan payne automated exposure control and iterative reconstruction technique. The dose-length product (DL P) was 1695.88 mGy-cm. Comparison: 05/07/2023 and 10/23/2022 Findings: Multiple shotty mediastinal lymph nodes are present, similar to prior exam.. Aortic stent graft exten ding from the aortic arch through the distal descending thoracic aorta is present. There is stable davey rrounding aneurysmal dilatation of the descending thoracic aorta with small amount of contrast enhanc ement external to the stent medially (axial image 40 for example).. There is no evidence of pleural or pericardial effusion. The lungs demonstrate probable minimal hypoventilatory/atelectatic changes versus possibly minimal pu lmonary edema. There is atelectatic changes in the medial right lower lobe. The liver, spleen, pancreas, gallbladder, adrenals and kidneys are within normal limits. There is dis section flap beginning at the upper abdominal aorta superior to the renal arteries, and extending dis tally through the aortic bifurcation and into the right common iliac artery. No lymphadenopathy. No bowel obstruction or bowel wall thickening. There is no evidence to suggest acute appendicitis. Urinary bladder is unremarkable. No pelvic mass seen. No ascites. Impression: Stable aortic stent graft from the aortic arch through the distal descending thoracic aorta. Stable s mall amount of contrast enhancement external to the stent, which could reflect endoleak. Stable dissection of the abdominal aorta, extending from the suprarenal abdominal aorta through the r ight common iliac artery. Medial right lower lobe atelectatic change. Multiple shotty mediastinal lymph nodes are similar to prior exam. Reviewed, dictated and finalized at location M. Impression: Stable aortic stent graft from the aortic arch through the distal descending th oracic aorta. Stable small amount of contrast enhancement external to the stent , which could reflect endoleak. Stable dissection of the abdominal aorta, extending from the suprarenal abdomin al aorta through the right common iliac artery. Medial right lower lobe atelectatic change. Multiple shotty mediastinal lymph nodes are similar to prior exam.
[2024-07-01 14:54] LABS: Estimated Glomerular Filt Rate 41
--- OUTSIDE RECORDS SUMMARY | 2024-07-02 14:12 | XMS_ITS | Patient Health Record ---
Author Organization [facility] ([address]) Address [address] [place] [address] Care Team Providers Care Visor Installer Name Role Phone Ba Espino Primary Care Provider UnavailEddie Barrera Unavailable [phone] Sawyer Roach Unavailable Unavailable Derrell Neal Unavailable [phone] [facility], Provider Unavailable Unavailab le Allergies No [...] Status Risk Notes Problem Chronic allergic conjunctivitis (27106554) Other chronic allergic conjunctivitis (H10.45) Active confirmed Problem Abdominal aortic aneurysm without rupture (86455741) Abdominal aortic aneurysm, without rupture (I71.4) Active confirmed Problem Allergic rhinitis caused by pollen (disorder) (79168336) Allergic rhinitis due to pollen (J30.1) Active confirmed Problem Allergic rhinitis (54914604) Other allergic rhinitis (J30.89) Active confirmed Problem Polyp of nasal cavity (disorder) (680026563) Nasal polyp, unspecified (J33.9) Active confirmed Problem Allergic rhinitis caused by animal hair and dander (481653493661918) Allergic rhinitis due to animal (cat) (dog) hair and dander (J30.81) Active confirmed Problem Uncomplicated severe persistent asthma (751567937) Severe persistent asthma, uncomplicated (J45.50) Active confirmed Problem Essential hypertension (95012772) Essential (primary) hypertension (I10) Active confirmed Problem 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) Active confirmed Problem Cough (finding) (95322288) Cough, unspecified (R05.9) Active confirmed Encounters Encounter Location Date Provider Diagnosis [address] [place] [address] 08/15/2023 Provider [facility] Allergic rhinitis due to pollen J30.1 [facility] [address] [place] [phone] 07/15/2023 Derrell Ángel Allergic rhinitis du e to pollen J30.1 ; Other allergic rhinitis J30.89 ; Allergic rhinitis due to animal (cat) (dog) hair and dander J30.81 and Other chronic allergic conjunctivitis H10.[address] [address] 08/12/2023 Derrell Ángel Allergic rhinitis du e to pollen J30.1 ; Other allergic rhinitis J30.89 ; Allergic rhinitis due to animal (cat) (dog) hair and dander J30.81 and Other chronic allergic conjunctivitis H10.[address] [address] 09/09/2023 Derrell Neal Allergic rhinitis du e to pollen J30.1 ; Other allergic rhinitis J30.89 ; Allergic rhinitis due to animal (cat) (dog) hair and dander J30.81 and Other chronic allergic conjunctivitis H10.45 [facility] [address] [place] [phone] 10/07/2023 Derrell Ángel Allergic rhinitis du e to pollen J30.1 ; Other allergic rhinitis J30.89 ; Allergic rhinitis due to animal (cat) (dog) hair and dander J30.81 and Other chronic allergic conjunctivitis H10.[address] [address] 11/04/2023 Derrell Neal Allergic rhinitis du e to pollen J30.1 ; Other allergic rhinitis J30.89 ; Allergic rhinitis due to animal (cat) (dog) hair and dander J30.81 and Other chronic allergic conjunctivitis H10.[address] [address] 12/02/2023 Derrell Neal Allergic rhinitis du e to pollen J30.1 ; Other allergic rhinitis J30.89 ; Allergic rhinitis due to animal (cat) (dog) hair and dander J30.81 and Other chronic allergic conjunctivitis H10.45 [facility] [address] [place] [address] [place] [address] [address] 01/06/2024 Derrell Neal Allergic rhinitis du e to pollen J30.1 ; Other allergic rhinitis J30.89 ; Allergic rhinitis due to animal (cat) (dog) hair and dander J30.81 and Other chronic allergic conjunctivitis H10.45 [facility] [address] [place] [phone] 02/03/2024 Derrell Neal Allergic rhinitis du e to pollen J30.1 ; Other allergic rhinitis J30.89 ; Allergic rhinitis due to animal (cat) (dog) hair and dander J30.81 and Other chronic allergic conjunctivitis H10.45 [facility] [address] [place] [phone] 03/22/2024 Derrell Neal Allergic rhinitis du e to pollen J30.1 ; Other allergic rhinitis J30.89 ; Allergic rhinitis due to animal (cat) (dog) hair and dander J30.81 and Other chronic allergic conjunctivitis H10.45 [facility] [address] [place] [phone] 03/29/2024 Derrell Neal Allergic rhinitis du e to pollen J30.1 ; Other allergic rhinitis J30.89 ; Allergic rhinitis due to animal (cat) (dog) hair and dander J30.81 and Other chronic allergic conjunctivitis H10.45 [facility] [address] [place] [phone] 05/04/2024 Derrell Neal Allergic rhinitis du e to pollen J30.1 ; Other allergic rhinitis J30.89 ; Allergic rhinitis due to animal (cat) (dog) hair and dander J30.81 and Other chronic allergic conjunctivitis H10.45 [facility] [address] [place] [phone] 05/10/2024 Derrell Neal Allergic rhinitis du e to pollen J30.1 ; Other allergic rhinitis J30.89 ; Allergic rhinitis due to animal (cat) (dog) hair and dander J30.81 and Other chronic allergic conjunctivitis H10.45 [facility] [address] [place] [phone] 05/17/2024 Derrell Neal Allergic rhinitis du e to pollen J30.1 ; Other allergic rhinitis J30.89 ; Allergic rhinitis due to animal (cat) (dog) hair and dander J30.81 and Other chronic allergic conjunctivitis H10.[address] [address] 06/14/2024 Derrell Neal Allergic rhinitis du e to pollen J30.1 ; Other allergic rhinitis J30.89 ; Allergic rhinitis due to animal (cat) (dog) hair and dander J30.81 and Other chronic allergic conjunctivitis H10.[address] [address] 01/06/2024 Eddie Greff Cough, unspecified R05.[address] [address] 05/10/2024 Eddie Greff Cough, unspecified R05.9 Assessments [...] Name:Derrell Neal , 07/12/2024 03:20:00 PM, [address] [facility], [address], [place], [address], Insurance Providers Payer Name Payer Address Payer Phone Subscriber Number Group Number Insured Name Patient Relationship to Insured Coverage Start Date Coverage End Date [place] [employer] [facility] [place] [address] [place] [address] [id number] Chace Irvin Self - patient is the [...]
--- OUTSIDE RECORDS SUMMARY | 2024-07-02 14:12 | XMS_ITS ---
Author Organization [facility] [place] ([address]) Address [address] [place] [address] Care Team Providers Care Study Abroad Coordinator Name Role Phone Srinivas Ba Primary Care Provider UnavailEddie Barrera Unavailable [phone] Sawyer Roach Unavailable Unavailable Derrell Neal Unavailable [phone] REASON FOR VISIT SCIT - Traditional Schedule [...] review and pick correct strength-formula tion from [employer] options. If intended option is not shown, [...] Encounters Encounter Location Date Provider Diagnosis [facility] [place] [address] [facility] [address] [place] [address] 06/14/2024 Derrell Neal Allergic rhinitis du e [...] Name:Derrell Neal , 07/12/2024 03:20:00 PM, [address], [address], [place], [address], Progress Notes * Jennifer LEVYOB:[birth year] (63 yo M)Acc No.[id number]:06/14/2024 SCIT-Aeroallergen Patient: Cintia DELUNA Chace Provider: Jez Neal MD :1960 A ge:63 Y S ex:Male Date:06/14/2024 Address:[facility] [address] [id number] Pcp:Ba Espino Subjective: * Chief Complaints: * [...] *Please review and pick correct strength-formulation from [employer] options. If intended option is not shown, [...] *Please review and pick correct strength-formulation from [employer] options. If intended option is not shown, [...] Information: * Visit Code: * Procedure Codes: 75100 IMMUNOTHERAPY INJECTIONS. * Sign off status: Completed true * Provider: Jez Neal MD Date: 0 06/14/2024 Generated for Elizabeth chavarria/Ant/Dayton on: 0 07/02/2024 02:11 PM CDT History and Physical Notes * [...]
--- OUTSIDE RECORDS SUMMARY | 2024-07-02 14:12 | XMS_ITS | Referral Summary ---
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
--- OUTSIDE RECORDS SUMMARY | 2024-07-02 14:12 | XMS_ITS ---
Author Organization [facility] [place] ([address]) Address [address] [place] [address] Care Team Providers Care Telegraph Repeater Installer Name Role Phone Ba Espino Primary Care Provider UnavailEddie Barrera Unavailable [phone] Sawyer Roach Unavailable Unavailable Derrell Neal Unavailable [phone] REASON FOR VISIT SCIT (Aeroallergen) Encounters Encounter Location Date Provider Diagnosis [facility] [address] [place] [address] 06/01/2024 Derrell Neal Plan Of Treatment Next Appt Details Provider Name:Derrell Neal , 07/12/2024 03:20:00 PM, [address] [facility], [address], [place], [address], Progress Notes * Lainey LEVYineDOB:[birth year] (63 yo M)Acc No.[id number]:06/01/2024 SCIT-Aeroallergen Patient: Cintia DELUNA Chace Provider: Jez Neal MD :1960 A ge:63 Y S ex:Male Date:06/01/2024 Address:[address] [id number] Pcp:Ba Espino Subjective: * Chief Complaints: * 1 . SCIT (Aeroallergen). * Medical History: Objective: * Vitals: Assessment: Plan: * Treatment: * Billing Information: * Visit Code: * Procedure Codes: * Electronic signature of Nimisha Neal MD, FAAAAI on 07/02/2024 at 02:12 PM CDT Sign off status: Pending * Provider: Jez Neal MD Date: 0 06/01/2024 Generated for Elizabeth chavarria/Ant/Dayton on: 07/02/2024 02:12 PM CDT
--- OUTSIDE RECORDS SUMMARY | 2024-07-02 14:12 | XMS_ITS | Clinical Summary ---
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 Gender Identity Not on file Sexual Orientation [...] 2023, 05/08/2020 Influenza Vaccine (#1) 2023 Insurance [facility] CHOICE PLUS [facility] CHOICE PLUS [facility] CHOICE PLUS [facility] CHOICE PLUS Member Subscriber Plan / Payer (Ef fective 2020-Present) Name:Amanda Levy Relation to Subscriber:Spouse Name:AMANDA LEVY Date of :1969 (Home) Address: [address] [place] [address] Payer ID:[id number] (NAIC) Type:[facility] HMO/PPO Address: [place] [phone] Care Teams Sample Supervisor Relationship Specialty Start Date End Date Ba Espino MD [address] [place] [address] PCP - General Family Medicine 01/29/21
--- OUTSIDE RECORDS SUMMARY | 2024-07-02 14:12 | XMS_ITS ---
Author Organization [facility] [place] ([address]) Address [address] [place] [address] Care Team Providers Care Sales Representative Church Furniture Name Role Phone Ba Epsino Primary Care Provider UnavailEddie Barrera Unavailable [phone] Sawyer Roach Unavailable Unavailable Derrell Neal Unavailable [phone] REASON FOR VISIT SCIT (Aeroallergen) Encounters Encounter Location Date Provider Diagnosis [facility] [address] [place] [address] 06/29/2024 Derrell Neal Plan Of Treatment Next Appt Details Provider Name:Derrell Neal , 07/12/2024 03:20:00 PM, [address] [facility], [address], [place], [address], Progress Notes * Lainey LEVYineDOB:[birth year] (63 yo M)Acc No.[id number]:06/29/2024 SCIT-Aeroallergen Patient: Cintia DELUNA Chace Provider: Jez Neal MD :1960 A ge:63 Y S ex:Male Date:06/29/2024 Address:[address] [id number] Pcp:Ba Espino Subjective: * Chief Complaints: * 1 . SCIT (Aeroallergen). * Medical History: Objective: * Vitals: Assessment: Plan: * Treatment: * Billing Information: * Visit Code: * Procedure Codes: * Electronic signature of Nimihsa Neal MD, FAAAAI on 07/02/2024 at 02:11 PM CDT Sign off status: Pending * Provider: Jez Neal MD Date: 0 06/29/2024 Generated for Elizabeth chavarria/Ant/Dayton on: 0 07/02/2024 02:11 PM CDT
== END 2024-07-01 13:55 | disposition home or self-care (01) ==
PROVIDERS: PCP Emergency Medicine
DX: I71.03 Dissection of thoracoabdominal aorta (principal)
CPT/HCPCS: 71275; 74174; Q9967

== ENCOUNTER 2024-08-26 18:42 | Emergency (ER) | payer OTHER, SELFPAY ==
--- NOTE | ~2024-08-26 | XR_ITS ---
CHEST RADIOGRAPH CLINICAL HISTORY: SOB . COMPARISON: 07/12/2022 TECHNIQUE: Single portable view of the chest. FINDINGS Sternal wires and mediastinal clips are identified, the wires are midline and intact. Endovascular stent redemonstrated within the aortic arch and descending thoracic aorta. The remainder of the cardiomediastinal silhouette is otherwise unremarkable. Elevation of the left hemidiaphragm with adjacent compressive atelectasis. The remainder of the lungs are clear. IMPRESSION: No focal infiltrate or effusion. Reviewed, dictated and finalized at location A.
[2024-08-26 18:46] VITALS: BP 148/85; PULSE 85; RESP 16; TEMP 36.4; O2SAT 98
--- NOTE | 2024-08-26 21:01 | ED_ITS ---
HPI - General Adult General Chief complaint: Asthma Stated complaint: asthma flare up Time Seen by Provider: 08/26/24 20:32 History of Present Illness HPI narrative: 63-year-old male present to the emergency department for evaluation for increased wheezing and shortness of breath for the last 2 days. Patient does have prior history of asthma and has been using his trilogy with no significant improvement. Patient has not been using any albuterol inhalers. He also does have a history aortic dissection that was repaired in 2018 and then again in 2019 and this was done at [facility]. Patient had this done at [facility] because he used to live in that region and will he lives at at local now he does continued follow-up with [facility] Cardiology. Related Data Home Medications ?Medication ?Instructions ?Recorded ?Confirmed ?Last Taken ?Type carvedilol 25 mg tablet 25 mg PO BID 02/19/20 08/15/24 12/24/20 18:00 History montelukast 10 mg tablet 10 mg PO HS 02/19/20 08/15/24 12/24/20 17:00 History nifedipine 60 mg tablet,extended 60 mg PO DAILY 05/14/20 08/15/24 12/24/20 09:00 History release 24 hr pantoprazole 40 mg tablet,delayed 40 mg PO DAILY 12/25/20 08/15/24 Unknown History release budesonide-formoterol HFA 160 2 puff inhalation BID 02/20/21 08/15/24 Unknown History mcg-4.5 mcg/actuation aerosol inhaler (Symbicort) latanoprost 0.005 % eye drops 1 drp EACH EYE HS 02/20/21 08/15/24 Unknown History tirzepatide 2.5 mg/0.5 mL mg subcut 08/15/24 08/15/24 Unknown History subcutaneous pen injector (Mounjaro) Allergies Allergy/AdvReac Type Severity Reaction Status Date / Time Kltyumt-VNG-WaH Reductase AdvReac Wheezing Verified 08/26/24 18:43 Inhibitor Review of Systems 2 Review of Systems: All systems reviewed & are unremarkable except as noted in HPI and below [facility] Past Medical History Medical History Colon cancer screening GERD (gastroesophageal reflux disease) Glaucoma HTN (hypertension), malignant Acute kidney injury Close exposure to 2019-nCoV Hypertension Surgical History Surgical History S/P AAA repair Family History Family History Mother Hypertension Sibling Hypertension Son Diabetes mellitus Type 1 Social History Social History Social History: The patient lives with his and has 2 children a son and a daughter. The patient does not currently work. The patient is lifelong nonsmoker does not drink alcohol or use illicit drugs. 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 Code status full code Smoking status: Never smoker Second hand tobacco smoke exposure: Yes Alcohol intake: never Substance use: never Substance use type: does not use Do You Feel Safe in your Home?: Yes Lack of Transportation: No Lack of Food: Never True Current Housing: I Have Housing Concerned About Future Housing: No Difficulty Paying Gas/Electric Bills: No Difficulty Paying for Meds: No Currently Unemployed: No Education: Bachelor's Degree Difficulty w/ Childcare or Family Care: No Living arrangements: with family Gender identity (if verbalized by the patient): Male Sexual Orientation (if Verbalized by the Patient): Straight or Heterosexual Spiritual care concerns: No Exam 2 Narrative: APPEARANCE: Well appearing, no pain, no distress, well-nourished. HEAD: normocephalic, atraumatic. EYES: PERRLA/EOMI, conjunctivae clear. NOSE: Normal no drainage EARS:TMS clear with good light reflex. THROAT: Pharynx clear, no exudate. NECK: Supple. No adenopathy, no masses. RESPIRATORY: Minimal expiratory wheeze CARDIOVASCULAR: Regular rate and rhythm without murmurs rubs or gallops. ABDOMINAL: Soft, nontender, nondistended, normal bowel sounds MUSCULOSKELETAL: Lower extremity edema +2 NEURO: Alert. Cranial nerves II through XII intact. Good gait. Good coordination SKIN: Warm, dry. Normal Color Course Vital Signs Vital signs: Vital Signs Temperature 97.6 F 08/26/24 18:46 Pulse Rate 85 08/26/24 18:46 Respiratory Rate 16 08/26/24 18:46 Blood Pressure 148/85 H 08/26/24 18:46 Pulse Oximetry 98 08/26/24 18:46 Temperature 97.6 F 08/26/24 18:46 Pulse Rate 70 08/26/24 22:40 Respiratory Rate 20 08/26/24 22:40 Blood Pressure 148/85 H 08/26/24 18:46 Pulse Oximetry 98 08/26/24 18:46 Medical Decision Making MDM Narrative Medical decision making narrative: 63-year-old male presents emergency department for evaluation for increased wheeze and shortness of breath. Patient was treated with nebulized albuterol and did feel improved with treatment. Patient is currently afebrile with no leukocytosis hemoglobin of 12.12. No significant abnormalities on the patient's CMP he does have a mildly elevated proBNP of 238 patient was negative for influenza RSV and for COVID. Chest x-ray shows no acute infiltrate or effusion, low concern for significant pulmonary edema or pneumonia. Patient did feel improved after the breathing treatment and did request albuterol for home. Patient was not provided a nebulizer for home as requested due to concern for interaction between the albuterol and his carvedilol. Patient was provided a albuterol inhaler with spacer. Patient was also started on a prednisone 5 day burst. Patient did have some lower extremity edema that was at or slightly worse than his typical baseline so patient was provided a 2 day course of Lasix. Patient was encouraged of close follow-up with his irrigationist designer and with his primary care physician. All questions concerns were addressed patient was well- appearing at time discharge. Differential Diagnosis Differential Diagnosis: COVID, RSV, influenza, pneumonia, pneumothorax, asthma, CHF Vital Signs Vital Signs: Vital Signs Temperature 97.6 F 08/26/24 18:46 Pulse Rate 85 08/26/24 18:46 Respiratory Rate 16 08/26/24 18:46 Blood Pressure 148/85 H 08/26/24 18:46 Pulse Oximetry 98 08/26/24 18:46 Temperature 97.6 F 08/26/24 18:46 Pulse Rate 70 08/26/24 22:40 Respiratory Rate 20 08/26/24 22:40 Blood Pressure 148/85 H 08/26/24 18:46 Pulse Oximetry 98 08/26/24 18:46 Lab Data Lab results reviewed: Yes I reviewed the patient's lab results. 08/26/24 21:30 08/26/24 21:30 Labs: Lab Results 08/26/24 Range/Units 21:30 WBC 6.7 (4.5-10.0) K/mm3 RBC 4.02 L (4.6-6.20) M/mm3 Hgb 12.2 L (14.0-18.0) g/dL Hct 37.1 L (42.0-52.0) % MCV 92.3 (80-100) fl MCH 30.3 (26-34) pg MCHC 32.9 (32-36) g/dl RDW 13.5 (11.5-14.5) % Plt Count 141 L (150-375) k/mm3 MPV 11.1 H (7.4-10.4) fl Immature Gran % (Auto) 0.1 (0-0.5) % Neut % (Auto) 35.5 L (45.5-73.1) % Lymph % (Auto) 38.2 (18.3-44.2) % Hancock % (Auto) 13.7 H (2.6-8.5) % Eos % (Auto) 12.1 H (0-4.4) % Baso % (Auto) 0.4 (0.2-1.2) % Lymph # (Auto) 2.57 (0.9-3.2) K/mm3 Hancock # (Auto) 0.9 H (0.1-0.6) K/mm3 Eos # (Auto) 0.8 H (0-0.3) K/mm3 Baso # (Auto) 0.0 (0.0-0.1) K/mm3 Abs Immat Gran (auto) 0.01 (0.00-0.031) K/mm3 Absolute Neuts (auto) 2.4 (1.3-6.7) K/mm3 Absolute Nucleated RBC 0.000 (0.0-0.012) K/mm3 Nucleated RBC % 0.0 (0.0-0.2) % Sodium 138 (137-145) mmol/L Potassium 3.7 (3.4-5.0) mmol/L Chloride 106 (98-107) mmol/L Carbon Dioxide 24 (22-30) mmol/L Anion Gap 8 (4-12) mmol/L BUN 26 H (9-20) mg/dL Creatinine 1.28 (0.7-1.3) mg/dL Estim Creat Clear Calc Not Reportable Estimated GFR 57 L (59 - ) Glucose 105 (65-110) mg/dL Calcium 9.0 (8.4-10.2) mg/dL Total Bilirubin 0.3 (0.2-1.3) mg/dL AST 35 (17-59) U/L ALT 39 (6-50) U/L Alkaline Phosphatase 50 (38-126) U/L NT-Pro-B Natriuret Pep 238 H (19.9-100) pg/mL Total Protein 7.1 (6.3-8.2) g/dL Albumin 3.9 (3.5-5.1) g/dL Influenza A (RT-PCR) Negative (Negative) Influenza B (RT-PCR) Negative (Negative) RSV (RT-PCR) Negative (Negative) SARS-CoV-2 RNA (RT-PCR) Negative (Negative) Discharge Plan Discharge Clinical Impression: Asthma Patient Disposition: Home Condition: Stable Instructions: Antibiotic Form, Asthma (ED) Additional Instructions: Lasix as directed for the next 2 days. Albuterol inhaler as needed for worsening shortness of breath. Have close follow-up with your primary care physicians and with cardiology. Your are not being prescribed the nebulized albuterol since high doses of albuterol are contraindicated with your cardiac medications. Patient Language: Slovenian Prescriptions: New albuterol sulfate 90 mcg/actuation HFA aerosol inhaler 1 puff inhalation QID Qty: 6.7 0RF prednisone 50 mg tablet 50 mg PO DAILY 5 Days Qty: 5 0RF No Action Mounjaro 2.5 mg/0.5 mL pen injector subcut carvedilol 25 mg tablet 25 mg PO BID montelukast 10 mg tablet 10 mg PO HS albuterol sulfate 90 mcg/actuation HFA aerosol inhaler 2 puff inhalation QID PRN (Reason: shortness of breath or wheezing) Qty: 6.7 0RF latanoprost 0.005 % drops 1 drp EACH EYE HS budesonide-formoterol [Symbicort] 160-4.5 mcg/actuation HFA aerosol inhaler 2 puff INHALATION BID nifedipine 60 mg Tablet Extended Release 24hr 60 mg PO DAILY pantoprazole 40 mg tablet,delayed release (DR/EC) 40 mg PO DAILY ipratropium-albuterol 0.5 mg-3 mg(2.5 mg base)/3 mL solution for nebulization 3 ml inhalation QID PRN (Reason: shortness of breath or wheezing) Qty: 90 0RF Follow-up/Referrals: Ba Espino MD [Primary Care Provider] -
[2024-08-26] MEDS: ALBUTEROL SULFATE NEB 2.5 MG/3 ML INH 5 MG INHALATION ×2 (21:15→22:40)
[2024-08-26 21:16] VITALS: PULSE 67; RESP 18
[2024-08-26 21:25] VITALS: PULSE 69; RESP 18
[2024-08-26 21:35] LABS: Basophils Percent Auto 0.4 % (0.2-1.2); Eosinophils Absolute Auto 0.8 K/mm3 (0-0.3); Eosinophils Percent Auto 12.1 % (0-4.4); Hematocrit 37.1 % (42.0-52.0); Hemoglobin 12.2 g/dL (14.0-18.0); Immature Granulocyte Absolute 0.01 K/mm3 (0.00-0.031); Immature Granulocyte Percent A 0.1 % (0-0.5); Lymphocytes Absolute Auto 2.57 K/mm3 (0.9-3.2); Lymphocytes Percent Auto 38.2 % (18.3-44.2); Mean Corpuscular HGB Conc 32.9 g/dl (32-36); Mean Corpuscular Hemoglobin 30.3 pg (26-34); Mean Corpuscular Volume 92.3 fl (80-100); Mean Platelet Volume 11.1 fl (7.4-10.4); Monocytes Absolute Auto 0.9 K/mm3 (0.1-0.6); Monocytes Percent Auto 13.7 % (2.6-8.5); Neutrophils Absolute Auto 2.4 K/mm3 (1.3-6.7); Neutrophils Percent Auto 35.5 % (45.5-73.1); Platelet Count Result 141 k/mm3 (150-375); Red Blood Count 4.02 M/mm3 (4.6-6.20); Red Cell Distribution Width 13.5 % (11.5-14.5); White Blood Count 6.7 K/mm3 (4.5-10.0)
[2024-08-26 21:47] LABS: Alanine Aminotransferase 39 U/L (6-50); Albumin Level 3.9 g/dL (3.5-5.1); Alkaline Phosphatase 50 U/L (38-126); Anion Gap 8 mmol/L (4-12); Aspartate Amino Transferase 35 U/L (17-59); Bilirubin,Total 0.3 mg/dL (0.2-1.3); Blood Urea Nitrogen 26 mg/dL (9-20); Carbon Dioxide 24 mmol/L (22-30); Chloride 106 mmol/L (98-107); Estimated Glomerular Filt Rate 57; Glucose 105 mg/dL (65-110); Potassium 3.7 mmol/L (3.4-5.0); Sodium 138 mmol/L (137-145); Total Protein 7.1 g/dL (6.3-8.2)
[2024-08-26 21:56] LABS: NT Pro B Type Natriuretic Pept 238 pg/mL (19.9-100)
[2024-08-26 22:13] LABS: Influenza A QL RT-PCR Negative (Negative); Influenza B QL RT-PCR Negative (Negative); RSV RNA, RT-PCR. Negative (Negative); SARS-CoV-2 RNA PCR Negative (Negative)
[2024-08-26 22:40] VITALS: PULSE 70; RESP 20
== END 2024-08-26 22:51 | disposition home or self-care (01) ==
PROVIDERS: Emergency Provider Emergency Medicine; PCP Emergency Medicine
DX: J45.909 Unspecified asthma, uncomplicated (principal); Z20.822 Contact with and (suspected) exposure to COVID-19; I10 Essential (primary) hypertension; K21.9 Gastro-esophageal reflux disease without esophagitis; H40.9 Unspecified glaucoma; Z79.85 Long-term (current) use of injectable non-insulin antidiabetic drugs; Z79.899 Other long term (current) drug therapy
CPT/HCPCS: 36415; 71045; 80053; 83880; 85025; 87637; 94640; 99283; 99284